=== PATIENT | male | born 1955 | race African-American/Black ===

== ENCOUNTER 2017-12-12 12:49 | Inpatient (IN) | payer MEDICARE, OTHER ==
[2017-12-12 14:12] LABS: BASO # 0.1 x10^3/uL (0.0-0.2); BASO % 0 % (0-3); EOS # 0.3 x10^3/uL (0.0-0.7); EOS % 2 % (0-3); HEMATOCRIT 38.4 % (39.0-53.0); HEMOGLOBIN 12.5 g/dL (13.0-17.5); LYMPH % 10 % (24-48); MEAN CORPUSCULAR HEMOGLOBIN 29 pg (25-35); MEAN CORPUSCULAR HGB CONC 33 g/dL (31-37); MEAN CORPUSCULAR VOLUME 88 fL (79-100); MONO # 1.2 x10^3/uL (0.0-1.1); MONO % 6 % (0-9); NEUT # 16.2 x10^3uL (1.8-7.7); NEUT % 82 % (31-73); PLATELET COUNT 496 x10^3/uL (140-400); RED BLOOD COUNT 4.36 x10^6/uL (4.30-5.70); RED CELL DISTRIBUTION WIDTH 14.5 % (11.5-14.5); WHITE BLOOD COUNT 19.8 x10^3/uL (4.0-11.0)
[2017-12-12 14:14] LABS: ADD MAN DIFF? YES
[2017-12-12 14:24] LABS: ANION GAP 20 (6-14); BLOOD UREA NITROGEN 55 mg/dL (8-26); CALCIUM 9.5 mg/dL (8.5-10.1); CARBON DIOXIDE 21 mmol/L (21-32); CHLORIDE 102 mmol/L (98-107); CREATININE 3.3 mg/dL (0.7-1.3); GFR 23.1; GLUCOSE 116 mg/dL (70-99); POTASSIUM 3.1 mmol/L (3.5-5.1); SODIUM 143 mmol/L (136-145)
[2017-12-12 14:29] LABS: ALBUMIN 3.6 g/dL (3.4-5.0); ALK PHOS 53 U/L (46-116); ALT (SGPT) 23 U/L (16-63); AST (SGOT) 43 U/L (15-37); DIRECT BILIRUBIN 0.1 mg/dL (0.0-0.2); LIPASE 143 U/L (73-393); TOTAL BILIRUBIN 0.7 mg/dL (0.2-1.0); TOTAL PROTEIN 8.8 g/dL (6.4-8.2)
[2017-12-12 14:31] LABS: TROPONINI 0.036 ng/mL (0.000-0.055)
[2017-12-12 14:39] LABS: NT-PRO BNP 1089 pg/mL (0-124)
[2017-12-12 14:58] LABS: LACTIC ACID 1.6 mmol/L (0.4-2.0)
[2017-12-12 16:00] LABS: % ATYL 1 % (0-0); % BANDS 5 % (0-9); % LYMPHS 14 % (24-48); % MONOS 9 % (0-10); % SEGS 71 % (35-66); PLT ESTIMATE INCREASED (ADEQUATE)
[2017-12-12 16:01] LABS: POIKILOCYTOSIS SLIGHT
[2017-12-12 16:30] LABS: BILIRUBIN,URINE SMALL (NEG); CLARITY,URINE CLEAR; COLOR,URINE AMBER; GLUCOSE,URINE NEGATIVE (NEG); NITRITE,URINE NEGATIVE (NEG); PH,URINE 5.5; PROTEIN,URINE 100 mg/dL (NEG-TRACE); UROBILINOGEN,URINE 0.2 mg/dL (0.2 mg/dL)
[2017-12-12 16:44] LABS: BACTERIA,URINE MANY /HPF (0-FEW); HYALINE CASTS, URINE MANY /HPF; WBC,URINE 20-40 /HPF (0-4)
[2017-12-12] MEDS: PIPERACILLIN/TAZOBACTAM 3.375 GM in IV NORMAL SALINE 50ML 50 ML IV (17:37)
[2017-12-12] MEDS: IV NORMAL SALINE 500ML BAG 500 ML IV (19:14)
[2017-12-12] MEDS: IV NORMAL SALINE 1000ML BAG 1,000 ML IV (21:15)
[2017-12-13] MEDS: IV NORMAL SALINE 1000ML BAG 1,000 ML IV ×2 (02:59→10:04)
[2017-12-13] MEDS: MORPHINE SULFATE 4 MG/ML DISP.SYRIN. IV ×2 (03:00→06:51)
[2017-12-13 06:22] LABS: ADD MAN DIFF? NO
[2017-12-13 06:30] LABS: BASO % 0 % (0-3); EOS # 0.3 x10^3/uL (0.0-0.7); EOS % 2 % (0-3); HEMATOCRIT 37.8 % (39.0-53.0); HEMOGLOBIN 12.3 g/dL (13.0-17.5); LYMPH # 1.8 x10^3/uL (1.0-4.8); LYMPH % 13 % (24-48); MEAN CORPUSCULAR HEMOGLOBIN 29 pg (25-35); MEAN CORPUSCULAR HGB CONC 33 g/dL (31-37); MEAN CORPUSCULAR VOLUME 89 fL (79-100); MONO # 0.9 x10^3/uL (0.0-1.1); MONO % 7 % (0-9); NEUT # 10.2 x10^3uL (1.8-7.7); NEUT % 78 % (31-73); PLATELET COUNT 355 x10^3/uL (140-400); RED BLOOD COUNT 4.26 x10^6/uL (4.30-5.70); RED CELL DISTRIBUTION WIDTH 14.3 % (11.5-14.5); WHITE BLOOD COUNT 13.2 x10^3/uL (4.0-11.0)
[2017-12-13 06:47] LABS: ANION GAP 13 (6-14); BLOOD UREA NITROGEN 44 mg/dL (8-26); CARBON DIOXIDE 22 mmol/L (21-32); CHLORIDE 103 mmol/L (98-107); CREATININE 1.3 mg/dL (0.7-1.3); GFR 67.7; GLUCOSE 111 mg/dL (70-99); POTASSIUM 3.2 mmol/L (3.5-5.1); SODIUM 138 mmol/L (136-145)
[2017-12-13] MEDS: ONDANSETRON PF 4 MG/2 ML VIAL. IV (06:50)
[2017-12-13] MEDS: PIPERACILLIN/TAZOBACTAM 3.375 GM in IV NORMAL SALINE 50ML 50 ML IV ×2 (09:56→18:38)
[2017-12-13] MEDS: CLOPIDOGREL BISULFATE 75 MG TABLET PO (09:56)
[2017-12-13] MEDS: FERROUS SULFATE 325 MG TABLET. PO ×2 (09:56→16:52)
[2017-12-13] MEDS: SERTRALINE 50 MG TABLET. PO (09:56)
[2017-12-13] MEDS: BICALUTAMIDE 50 MG TABLET PO (10:03)
[2017-12-13] MEDS: HYDROcodone/APAP 7.5/325MG 1 TAB TABLET PO ×3 (10:08→21:27)
[2017-12-13] MEDS: PANTOPRAZOLE 40 MG TABLET.DR. PO (12:24)
[2017-12-13] MEDS: SUCRALFATE 1 GM/10 ML ORAL.SUSP. PEG ×3 (12:24→21:23)
[2017-12-13 14:14] LABS: MAGNESIUM 2.9 mg/dL (1.8-2.4)
[2017-12-13] MEDS: POTASSIUM CHLORIDE 40 MEQ in IV NORMAL SALINE 1000ML BAG 1,000 ML IV (15:26)
[2017-12-14] MEDS: PIPERACILLIN/TAZOBACTAM 3.375 GM in IV NORMAL SALINE 50ML 50 ML IV ×5 (00:18→23:46)
[2017-12-14 05:17] LABS: ADD MAN DIFF? NO
[2017-12-14 05:24] LABS: BASO # 0.1 x10^3/uL (0.0-0.2); BASO % 1 % (0-3); EOS # 0.3 x10^3/uL (0.0-0.7); EOS % 5 % (0-3); HEMATOCRIT 30.3 % (39.0-53.0); HEMOGLOBIN 9.9 g/dL (13.0-17.5); LYMPH # 1.3 x10^3/uL (1.0-4.8); LYMPH % 17 % (24-48); MEAN CORPUSCULAR HEMOGLOBIN 29 pg (25-35); MEAN CORPUSCULAR HGB CONC 33 g/dL (31-37); MEAN CORPUSCULAR VOLUME 89 fL (79-100); MONO # 0.6 x10^3/uL (0.0-1.1); MONO % 9 % (0-9); NEUT # 5.2 x10^3uL (1.8-7.7); NEUT % 69 % (31-73); PLATELET COUNT 305 x10^3/uL (140-400); RED BLOOD COUNT 3.42 x10^6/uL (4.30-5.70); RED CELL DISTRIBUTION WIDTH 14.2 % (11.5-14.5); WHITE BLOOD COUNT 7.6 x10^3/uL (4.0-11.0)
[2017-12-14] MEDS: HYDROcodone/APAP 7.5/325MG 1 TAB TABLET PO ×4 (05:25→20:54)
[2017-12-14] MEDS: POTASSIUM CHLORIDE 40 MEQ in IV NORMAL SALINE 1000ML BAG 1,000 ML IV (05:27)
[2017-12-14 05:50] LABS: MAGNESIUM 2.1 mg/dL (1.8-2.4)
[2017-12-14 05:52] LABS: ANION GAP 9 (6-14); CALCIUM 8.4 mg/dL (8.5-10.1); CARBON DIOXIDE 24 mmol/L (21-32); CHLORIDE 107 mmol/L (98-107); CREATININE 0.7 mg/dL (0.7-1.3); GFR 138.3; GLUCOSE 99 mg/dL (70-99); POTASSIUM 3.1 mmol/L (3.5-5.1); SODIUM 140 mmol/L (136-145)
[2017-12-14 05:55] LABS: BLOOD UREA NITROGEN 29 mg/dL (8-26)
[2017-12-14] MEDS: SUCRALFATE 1 GM/10 ML ORAL.SUSP. PEG ×4 (09:28→20:53)
[2017-12-14] MEDS: PANTOPRAZOLE 40 MG TABLET.DR. PO (09:28)
[2017-12-14] MEDS: CLOPIDOGREL BISULFATE 75 MG TABLET PO (09:29)
[2017-12-14] MEDS: FERROUS SULFATE 325 MG TABLET. PO ×2 (09:29→17:27)
[2017-12-14] MEDS: POTASSIUM CHLORIDE 10 MEQ TABLET.ER. PO ×3 (09:29→17:27)
[2017-12-14] MEDS: SERTRALINE 50 MG TABLET. PO (09:30)
[2017-12-14] MEDS: BICALUTAMIDE 50 MG TABLET PO (09:36)
[2017-12-14] MEDS: POTASSIUM CL 30MEQ D5-0.45NACL 1,000 ML IV ×2 (11:18→23:45)
[2017-12-15] MEDS: PIPERACILLIN/TAZOBACTAM 3.375 GM in IV NORMAL SALINE 50ML 50 ML IV (04:55)
[2017-12-15 05:31] LABS: MAGNESIUM 1.7 mg/dL (1.8-2.4)
[2017-12-15 05:35] LABS: ANION GAP 10 (6-14); BLOOD UREA NITROGEN 6 mg/dL (8-26); CALCIUM 8.4 mg/dL (8.5-10.1); CARBON DIOXIDE 24 mmol/L (21-32); CHLORIDE 103 mmol/L (98-107); CREATININE 0.6 mg/dL (0.7-1.3); GFR 165.2; GLUCOSE 114 mg/dL (70-99); SODIUM 137 mmol/L (136-145)
[2017-12-15] MEDS: SUCRALFATE 1 GM/10 ML ORAL.SUSP. PEG ×4 (09:56→20:48)
[2017-12-15] MEDS: HYDROcodone/APAP 7.5/325MG 1 TAB TABLET PO ×3 (09:56→20:48)
[2017-12-15] MEDS: FERROUS SULFATE 325 MG TABLET. PO ×2 (09:57→17:31)
[2017-12-15] MEDS: CLOPIDOGREL BISULFATE 75 MG TABLET PO (09:57)
[2017-12-15] MEDS: PANTOPRAZOLE 40 MG TABLET.DR. PO (09:57)
[2017-12-15] MEDS: SERTRALINE 50 MG TABLET. PO (09:57)
[2017-12-15] MEDS: POTASSIUM CHLORIDE 10 MEQ TABLET.ER. PO ×3 (09:57→17:31)
[2017-12-15] MEDS: BICALUTAMIDE 50 MG TABLET PO (10:07)
[2017-12-15] MEDS: amLODIPine BESYLATE 5 MG TABLET PO (10:37)
[2017-12-15] MEDS: POTASSIUM CL 30MEQ D5-0.45NACL 1,000 ML IV (13:33)
[2017-12-15] MEDS ORDERED: PIPERACILLIN/TAZOBACTAM 3.375 GM in IV NORMAL SALINE 100ML 100 ML IV (18:00)
[2017-12-15] MEDS: AMOXICILLIN/K CLAV 500/125MG TABLET. PO (20:48)
[2017-12-16] MEDS: POTASSIUM CL 30MEQ D5-0.45NACL 1,000 ML IV ×2 (05:32→17:45)
[2017-12-16 06:22] LABS: MAGNESIUM 1.6 mg/dL (1.8-2.4)
[2017-12-16] MEDS ORDERED: LIDOCAINE 1% PF 2 ML VIAL. ID ×2 (08:00→08:15)
[2017-12-16] MEDS ORDERED: fentaNYL PF VIAL 100 MCG/2 ML VIAL IV ×4 (08:00→08:15)
[2017-12-16] MEDS ORDERED: MIDAZOLAM HCL/PF 2 MG/2 ML VIAL. IV ×2 (08:00→08:15)
[2017-12-16] MEDS: IV RINGERS,LACTATED 1000ML 1,000 ML IV ×3 (08:11→16:11)
[2017-12-16] MEDS: BICALUTAMIDE 50 MG TABLET PO (09:00)
[2017-12-16] MEDS: CLOPIDOGREL BISULFATE 75 MG TABLET PO (09:00)
[2017-12-16] MEDS ORDERED: PROPOFOL 20 ML IV (09:14)
[2017-12-16] MEDS: HYDROcodone/APAP 7.5/325MG 1 TAB TABLET PO ×3 (09:44→20:50)
[2017-12-16] MEDS: AMOXICILLIN/K CLAV 500/125MG TABLET. PO ×2 (09:44→20:50)
[2017-12-16] MEDS: SUCRALFATE 1 GM/10 ML ORAL.SUSP. PEG ×4 (09:44→20:50)
[2017-12-16] MEDS: amLODIPine BESYLATE 5 MG TABLET PO ×2 (09:45→10:10)
[2017-12-16] MEDS: PANTOPRAZOLE 40 MG TABLET.DR. PO (09:45)
[2017-12-16] MEDS: POTASSIUM CHLORIDE 10 MEQ TABLET.ER. PO ×3 (09:45→16:23)
[2017-12-16] MEDS: SERTRALINE 50 MG TABLET. PO ×2 (09:45→10:06)
[2017-12-16] MEDS: FERROUS SULFATE 325 MG TABLET. PO ×2 (10:09→16:23)
[2017-12-16] MEDS: POTASSIUM CHLORIDE 20 MEQ TABLET.ER. PO (11:00)
[2017-12-16] MEDS: MAGNESIUM SULFATE 2GM 50 ML IV (19:44)
[2017-12-17] MEDS: POTASSIUM CL 30MEQ D5-0.45NACL 1,000 ML IV ×2 (03:40→10:17)
[2017-12-17 05:41] LABS: ANION GAP 13 (6-14); BLOOD UREA NITROGEN 7 mg/dL (8-26); CALCIUM 9.1 mg/dL (8.5-10.1); CARBON DIOXIDE 25 mmol/L (21-32); CHLORIDE 99 mmol/L (98-107); CREATININE 0.8 mg/dL (0.7-1.3); GFR 118.5; GLUCOSE 151 mg/dL (70-99); MAGNESIUM 1.9 mg/dL (1.8-2.4); POTASSIUM 3.5 mmol/L (3.5-5.1); SODIUM 137 mmol/L (136-145)
[2017-12-17] MEDS: SUCRALFATE 1 GM/10 ML ORAL.SUSP. PEG ×4 (08:03→20:22)
[2017-12-17] MEDS: PANTOPRAZOLE 40 MG TABLET.DR. PO (08:04)
[2017-12-17] MEDS: FERROUS SULFATE 325 MG TABLET. PO ×2 (09:19→16:36)
[2017-12-17] MEDS: HYDROcodone/APAP 7.5/325MG 1 TAB TABLET PO ×2 (09:19→16:39)
[2017-12-17] MEDS: POTASSIUM CHLORIDE 20 MEQ TABLET.ER. PO (09:19)
[2017-12-17] MEDS: CLOPIDOGREL BISULFATE 75 MG TABLET PO (09:19)
[2017-12-17] MEDS: AMOXICILLIN/K CLAV 500/125MG TABLET. PO ×2 (09:19→20:22)
[2017-12-17] MEDS: amLODIPine BESYLATE 5 MG TABLET PO ×2 (09:20→10:50)
[2017-12-17] MEDS: POTASSIUM CHLORIDE 10 MEQ TABLET.ER. PO ×3 (09:20→16:39)
[2017-12-17] MEDS: BICALUTAMIDE 50 MG TABLET PO (09:27)
[2017-12-17] MEDS ORDERED: POLYETHYLENE GLYCOL 3350 17 GM PACKET. PO (12:15)
[2017-12-18] MEDS: POTASSIUM CL 30MEQ D5-0.45NACL 1,000 ML IV (00:32)
[2017-12-18 06:47] LABS: MAGNESIUM 1.6 mg/dL (1.8-2.4)
[2017-12-18] MEDS: FERROUS SULFATE 325 MG TABLET. PO (07:36)
[2017-12-18] MEDS: PANTOPRAZOLE 40 MG TABLET.DR. PO (07:36)
[2017-12-18] MEDS: SUCRALFATE 1 GM/10 ML ORAL.SUSP. PEG ×2 (07:36→12:10)
[2017-12-18] MEDS: POTASSIUM CHLORIDE 20 MEQ TABLET.ER. PO (07:36)
[2017-12-18] MEDS: HYDROcodone/APAP 7.5/325MG 1 TAB TABLET PO ×2 (07:37→12:11)
[2017-12-18] MEDS: AMOXICILLIN/K CLAV 500/125MG TABLET. PO (07:48)
[2017-12-18] MEDS: CLOPIDOGREL BISULFATE 75 MG TABLET PO (07:48)
[2017-12-18] MEDS: amLODIPine BESYLATE 5 MG TABLET PO ×2 (07:48→08:54)
[2017-12-18] MEDS: SERTRALINE 50 MG TABLET. PO (07:48)
[2017-12-18] MEDS: BICALUTAMIDE 50 MG TABLET PO (07:54)
[2017-12-18] MEDS: POTASSIUM CHLORIDE 10 MEQ TABLET.ER. PO ×2 (08:42→13:31)
== END 2017-12-18 15:29 | disposition home health service (06) | DRG 871 ==
LOC: ER 12:49 → 5 SOUTH 12-16 19:45
PROC: 0DB58ZX Excision of Esophagus, Via Natural or Artificial Opening Endoscopic, Diagnostic (ICD-10-PCS; principal; 2017-12-16 08:30)
PROC: 0DB68ZX Excision of Stomach, Via Natural or Artificial Opening Endoscopic, Diagnostic (ICD-10-PCS; 2017-12-16 08:30)
DX: A41.9 Sepsis, unspecified organism (principal); N17.1 Acute kidney failure with acute cortical necrosis; N39.0 Urinary tract infection, site not specified; I69.354 Hemiplegia and hemiparesis following cerebral infarction affecting left non-dominant side; G62.9 Polyneuropathy, unspecified; E78.5 Hyperlipidemia, unspecified; F17.200 Nicotine dependence, unspecified, uncomplicated; I10 Essential (primary) hypertension; K20.9 Esophagitis, unspecified; K27.9 Peptic ulcer, site unspecified, unspecified as acute or chronic, without hemorrhage or perforation; K29.60 Other gastritis without bleeding; K59.00 Constipation, unspecified; K64.8 Other hemorrhoids; F32.9 Major depressive disorder, single episode, unspecified; B96.1 Klebsiella pneumoniae [K. pneumoniae] as the cause of diseases classified elsewhere; K82.8 Other specified diseases of gallbladder; Z85.46 Personal history of malignant neoplasm of prostate; Z87.11 Personal history of peptic ulcer disease; Z92.3 Personal history of irradiation
CPT/HCPCS: 36415; 74176; 76705; 80048; 80076; 81001; 83605; 83690; 83735; 83880; 84484; 85007; 85025; 87086; 87186; 88305; 88312; 88342; 93005; 96365; 96366; 97162-GP; 97167-GO; 99285; 99285-25; J2270; J2405; J2543; J2704; J3475; J7030; J7040; J7120

== ENCOUNTER 2018-07-12 10:24 | Emergency (ER) | payer MEDICARE, OTHER ==
[~2018-07-12] VITALS: Ht 193 cm; Wt 88.5 kg
[~2018-07-12 10:24] MED LIST: BICA50TA47 PO; CLOP75TA57 PO; FERR325T14 PO; HYDR-2762 PO; PANT20TA2 PO; SERT50TA PO; SIMV20TA3 PO; SUCR1ORA5 PO
[2018-07-12] MEDS: HYDROcodone/APAP 5/325MG 1 TAB TABLET PO ONE (11:07)
[2018-07-12] MEDS: ONDANSETRON ODT 4 MG TAB.RAPDIS. PO ONE (11:07)
--- NOTE | 2018-07-12 12:04 | RAD ---
EXAM: 1. Frontal chest with 4 view left rib series. 2. Frontal pelvis with two-view left hip. HISTORY: Fall with left chest and hip pain. COMPARISON: June 28, 2010. FINDINGS: There are minimally displaced fractures of the left third through eighth ribs. There is a small left pleural effusion. There is no pneumothorax. Atelectasis is noted in both bases. There is mild elevation of the right hemidiaphragm. There are atherosclerotic calcifications of the aorta. Images of the pelvis reveal moderate to severe osteopenia. This limits evaluation for nondisplaced fractures, but none are seen. A left hip hemiarthroplasty is in expected alignment. Fiducial markers are suspected within the prostate gland. Atherosclerotic calcifications are noted. IMPRESSION: 1. Minimally displaced fractures of the left third through eighth ribs. 2. Small left pleural effusion. No pneumothorax. Bibasilar atelectasis. 3. Moderate to severe osteopenia. No pelvic or left hip fracture. Left hip hemiarthroplasty in expected alignment. Electronically signed by: Erik Syed MD (07/12/2018 12:01 PM) [facility]
[2018-07-12 12:56] LABS: BASO # 0.1 x10^3/uL (0.0-0.2); BASO % 0 % (0-3); EOS # 0.2 x10^3/uL (0.0-0.7); EOS % 1 % (0-3); HEMATOCRIT 33.6 % (39.0-53.0); HEMOGLOBIN 11.5 g/dL (13.0-17.5); LYMPH # 2.2 x10^3/uL (1.0-4.8); LYMPH % 14 % (24-48); MEAN CORPUSCULAR HEMOGLOBIN 31 pg (25-35); MEAN CORPUSCULAR HGB CONC 34 g/dL (31-37); MEAN CORPUSCULAR VOLUME 90 fL (79-100); MONO % 6 % (0-9); NEUT # 12.9 x10^3uL (1.8-7.7); NEUT % 79 % (31-73); PLATELET COUNT 443 x10^3/uL (140-400); RED BLOOD COUNT 3.73 x10^6/uL (4.30-5.70); RED CELL DISTRIBUTION WIDTH 14.8 % (11.5-14.5); WHITE BLOOD COUNT 16.3 x10^3/uL (4.0-11.0)
[2018-07-12 12:59] LABS: CREATININE ISTAT 0.8 mg/dL (0.5-1.4); HEMOGLOBIN ISTAT 12.2 g/dL (14-18); ION CA ISTAT 1.07 mmol/L (1.13-1.32); POTASSIUM ISTAT 3.1 mmol/L (3.5-5.0)
[2018-07-12 13:06] LABS: CALCIUM 9.3 mg/dL (8.5-10.1); CREATININE 0.9 mg/dL (0.7-1.3); GFR 103.1; POTASSIUM 3.2 mmol/L (3.5-5.1)
[2018-07-12 13:15] LABS: % EOS 2 % (0-5); % LYMPHS 16 % (24-48); % MONOS 3 % (0-10); % SEGS 79 % (35-66)
[2018-07-12 13:16] LABS: PLT ESTIMATE INCREASED (ADEQUATE)
[2018-07-12] MEDS ORDERED: IOHEXOL 300 MG/ML 100ML VIAL. IV ONE (13:30)
[2018-07-12] MEDS ORDERED: CONTRAST GIVEN. MC PRN (13:30)
--- NOTE | 2018-07-12 14:24 | PHYS DOC ---
Past Medical History Past Medical History: CVA, Other Additional Past Medical Histor: Left hemiparalysis Past Surgical History: Other Additional Past Surgical Histo: back, unknown Alcohol Use: None Drug Use: None Adult General Chief Complaint Chief Complaint: RIB PAIN HPI HPI Patient is a 63 year old male with history of CVA with left-sided weakness who presents today complaining of moderate left rib pain and left hip pain status post falling a week ago. Patient states his pain is worse on certain movements. PCP Dr. Tabor Review of Systems Review of Systems Constitutional: Denies fever or chills [] Eyes: Denies change in visual acuity, redness, or eye pain [] HENT: Denies nasal congestion or sore throat [] Respiratory: Reports left rib pain. Denies cough or shortness of breath [] Cardiovascular: No additional information not addressed in HPI [] GI: Denies abdominal pain, nausea, vomiting, bloody stools or diarrhea [] : Denies dysuria or hematuria [] Musculoskeletal: Reports left thigh pain. Denies any back pain or neck pain. Integument: Denies rash or skin lesions [] Neurologic: Denies headache, focal weakness or sensory changes [] All other systems were reviewed and found to be within normal limits, except as documented in this note. Current Medications Current Medications Current Medications Medications (Trade) Dose Ordered Sig/Popeye Start Time Stop Time Status Last Admin Dose Admin Acetaminophen/ Hydrocodone Bitart (Lortab 5/325) 1 tab 1X ONCE 07/12/18 11:00 07/12/18 11:01 DC 07/12/18 11:07 1 TAB Info (CONTRAST GIVEN -- Rx MONITORING) 1 each PRN DAILY PRN 07/12/18 13:30 07/14/18 13:29 Iohexol (Omnipaque 300 Mg/ml) 75 ml 1X ONCE 07/12/18 13:30 07/12/18 13:31 DC Ondansetron HCl (Zofran Odt) 4 mg 1X ONCE 07/12/18 11:00 07/12/18 11:01 DC 07/12/18 11:07 4 MG Allergies Allergies Allergies Coded Allergies Type Severity Reaction Last Updated Verified No Known Drug Allergies 12/16/17 No Physical Exam Physical Exam Constitutional: Well developed, well nourished, no acute distress, non-toxic appearance. [] HENT: Normocephalic, atraumatic, bilateral external ears normal, oropharynx moist, no oral exudates, nose normal. [] Eyes: PERRLA, EOMI, conjunctiva normal, no discharge. [] Neck: Normal range of motion, no tenderness, supple, no stridor. [] Cardiovascular:Heart rate regular rhythm, no murmur [] Lungs & Thorax: Tenderness on palpation of almost all the left lateral ribs mid clavicular and mid axillary line. Diminished breath sounds to posterior lung bases. Abdomen: Bowel sounds normal, soft, no tenderness, no masses, no pulsatile masses. [] Skin: Warm, dry, no erythema, no rash. [] Back: No tenderness, no CVA tenderness. [] Extremities: Left upper extremity is contracted. Left lower extremity is weak from a CVA. Slight tenderness on palpation of the left anterior hip. Left hip lower extremity with limited range of motion due to CVA. +2 bilateral pedal pulses. Neurologic: Alert and oriented X 3, normal motor function, normal sensory function, no focal deficits noted. [] Psychologic: Affect normal, judgement normal, mood normal. [] Current Patient Data Vital Signs Vital Signs Date Time Temp Pulse Resp B/P (MAP) Pulse Ox O2 Delivery O2 Flow Rate FiO2 07/12/18 14:41 76 18 142/72 (95) 96 Room Air 07/12/18 10:40 98.3 98.3 Lab Values Laboratory Tests Test 07/12/18 12:50 07/12/18 12:52 White Blood Count 16.3 x10^3/uL (4.0-11.0) H Red Blood Count 3.73 x10^6/uL (4.30-5.70) L Hemoglobin 11.5 g/dL (13.0-17.5) L Hematocrit 33.6 % (39.0-53.0) L Mean Corpuscular Volume 90 fL (79-100) Mean Corpuscular Hemoglobin 31 pg (25-35) Mean Corpuscular Hemoglobin Concent 34 g/dL (31-37) Red Cell Distribution Width 14.8 % (11.5-14.5) H Platelet Count 443 x10^3/uL (140-400) H Neutrophils (%) (Auto) 79 % (31-73) H Lymphocytes (%) (Auto) 14 % (24-48) L Monocytes (%) (Auto) 6 % (0-9) Eosinophils (%) (Auto) 1 % (0-3) Basophils (%) (Auto) 0 % (0-3) Neutrophils # (Auto) 12.9 x10^3uL (1.8-7.7) H Lymphocytes # (Auto) 2.2 x10^3/uL (1.0-4.8) Monocytes # (Auto) 1.0 x10^3/uL (0.0-1.1) Eosinophils # (Auto) 0.2 x10^3/uL (0.0-0.7) Basophils # (Auto) 0.1 x10^3/uL (0.0-0.2) Segmented Neutrophils % 79 % (35-66) H Lymphocytes % 16 % (24-48) L Monocytes % 3 % (0-10) Eosinophils % 2 % (0-5) Platelet Estimate Increased (ADEQUATE) Sodium Level 138 mmol/L (136-145) Potassium Level 3.2 mmol/L (3.5-5.1) L Chloride Level 103 mmol/L (98-107) Carbon Dioxide Level 24 mmol/L (21-32) Anion Gap 11 (6-14) 15 mmol/L (6-14) H Blood Urea Nitrogen 17 mg/dL (8-26) Creatinine 0.9 mg/dL (0.7-1.3) Estimated GFR (Cockcroft-Gault) 103.1 Glucose Level 84 mg/dL (70-99) 80 mg/dL (70-99) Calcium Level 9.3 mg/dL (8.5-10.1) POC Hemoglobin 12.2 g/dL (14-18) L POC Hematocrit 36 % (37-52) L POC Sodium 139 mmol/L (135-145) POC Potassium 3.1 mmol/L (3.5-5.0) L POC Chloride 105 mmol/L (98-110) POC Total CO2 23 mmol/L (23-32) POC Blood Urea Nitrogen 16 mg/dL (8-26) POC Creatinine 0.8 mg/dL (0.5-1.4) POC Ionized Calcium (Malia) 1.07 mmol/L (1.13-1.32) L Laboratory Tests 07/12/18 12:50 Laboratory Tests 07/12/18 12:50 07/12/18 12:52 EKG EKG [] Radiology/Procedures Radiology/Procedures []PROCEDURE: RIBS LEFT AND PA CHEST EXAM: 1. Frontal chest with 4 view left rib series. 2. Frontal pelvis with two-view left hip. HISTORY: Fall with left chest and hip pain. COMPARISON: June 28, 2010. FINDINGS: There are minimally displaced fractures of the left third through eighth ribs. There is a small left pleural effusion. There is no pneumothorax. Atelectasis is noted in both bases. There is mild elevation of the right hemidiaphragm. There are atherosclerotic calcifications of the aorta. Images of the pelvis reveal moderate to severe osteopenia. This limits evaluation for nondisplaced fractures, but none are seen. A left hip hemiarthroplasty is in expected alignment. Fiducial markers are suspected within the prostate gland. Atherosclerotic calcifications are noted. IMPRESSION: 1. Minimally displaced fractures of the left third through eighth ribs. 2. Small left pleural effusion. No pneumothorax. Bibasilar atelectasis. 3. Moderate to severe osteopenia. No pelvic or left hip fracture. Left hip hemiarthroplasty in expected alignment. Electronically signed by: Erik Syed MD (07/12/2018 12:01 PM) [facility] DICTATED and SIGNED BY: GARRISON SYED MD DATE: 07/12/18 1157 PROCEDURE: CT ANGIOGRAPHY CHEST EXAM: CT ANGIOGRAPHY OF THE CHEST WITH AND WITHOUT INTRAVENOUS CONTRAST. HISTORY: Shortness of breath, chest pain. TECHNIQUE: Computed tomographic angiography of the chest was performed before and after the intravenous administration of 75 mL Omnipaque 300. 3-D maximum intensity projections were also performed. COMPARISON: 07/23/2016. FINDINGS: Images of the upper abdomen reveal mild gallbladder wall thickening. A left adrenal nodule measures 2.0 x 1.4 cm and appears to have been present chronically. A benign adenoma is favored. Bone windows reveal fractures of the third through 12th ribs. They are segmental along the third through eighth ribs. No pulmonary emboli are identified. There is no aortic dissection or aneurysm. Soft tissue density within the anterior mediastinal fat is relatively focal and measures 1.2 x 1.0 cm transaxially. It is stable chronically. There are no pathologically enlarged mediastinal or axillary lymph nodes. Calcified mediastinal lymph nodes are likely secondary to old granulomatous disease. There is a small left pleural effusion. There is no pericardial effusion. The heart is not enlarged. There are atherosclerotic calcifications of the coronary arteries. The lower lobe bronchi are filled with debris. Infiltrates in the bases are consistent with a combination of atelectasis and pneumonitis. There is mild to moderate centrilobular emphysema. IMPRESSION: 1. No pulmonary embolism. 2. The lower lobe bronchi are filled with debris. Correlate for aspiration versus uncleared secretions. There is associated bibasilar pneumonitis 3. Left third through 12th rib fractures, some of which are displaced or segmental. No pneumothorax. Small left pleural effusion. 4. Mild gallbladder wall thickening is nonspecific and may reflect systemic edema or liver disease. Correlate clinically to exclude cholecystitis. 5. A 2 cm left adrenal nodule appears stable and most likely indicates a benign adenoma. 6. A 1.2 cm nodule within the anterior mediastinum appears stable. Follow-up is suggested in one year to exclude a thymic lesion. *One or more of the following individualized dose reduction techniques were utilized for this examination: 1. Automated exposure control. 2. Adjustment of the mA and/or kV according to patient size. 3. Use of iterative reconstruction technique. Electronically signed by: Erik Syed MD (07/12/2018 2:46 PM) [facility] DICTATED and SIGNED BY: GARRISON SYED MD DATE: 07/12/18 143 Course & Med Decision Making Course & Med Decision Making Pertinent Labs and Imaging studies reviewed. (See chart for details) This is a 63-year-old male patient with history of CVA and left-sided weakness who presents today status post falling a week ago. Complaining of left rib pain and left thigh pain. X-rays of the left ribs/chest PA-Minimally displaced fractures of the left third through eighth ribs. He Small left pleural effusion. No pneumothorax. Bibasilar atelectasis. Moderate to severe osteopenia. No pelvic or left hip fracture. Left hip hemiarthroplasty in expected alignment. WBC 16.3, CMP potassium of 3.2, patient was given oral potassium replacement. CTA chest ordered. Results 1. No pulmonary embolism. 2. The lower lobe bronchi are filled with debris. Correlate for aspiration versus uncleared secretions. There is associated bibasilar pneumonitis 3. Left third through 12th rib fractures, some of which are displaced or segmental. No pneumothorax. Small left pleural effusion. 4. Mild gallbladder wall thickening is nonspecific and may reflect systemic edema or liver disease. Correlate clinically to exclude cholecystitis. 5. A 2 cm left adrenal nodule appears stable and most likely indicates a benign adenoma. 6. A 1.2 cm nodule within the anterior mediastinum appears stable. Follow-up is suggested in one year to exclude a thymic lesion. -Offered patient admission, he declined, he states he left his house unattended at the dose open and he does not want to be in the hospital on time around and find everything in his house was stolen. He'll sign out AMA but I offered him a prescription for Levaquin, cyclobenzaprine and hydrocodone as needed for pain. I recommended he follows up with his own PCP on Saturday and return to the ED at any point symptoms worsen. Dragon Disclaimer Dragon Disclaimer This electronic medical record was generated, in whole or in part, using a voice recognition dictation system. Departure Departure Impression: Primary Impression: Fall from standing Additional Impressions: Rib fractures Aspiration pneumonia Disposition: HOME, SELF-CARE Condition: STABLE Referrals: UCHE TABOR MD (PCP) follow up on Saturday Patient Instructions: Aspiration Pneumonia, Fall Prevention and Home Safety, Rib Fracture, [id number] Additional Instructions: You were evaluated in the emergency room and noted to have rib 3 through 8 fractures. You also have pneumonia going on. We put you on antibiotics. Ensure you complete them. Please follow-up with your own doctor on Saturday next week. Come back to the ED at any point symptoms worsen. Scripts Levofloxacin (LEVAQUIN) 750 Mg Tablet 1 TAB PO DAILY, #6 TAB Prov: [employer] 07/12/18 Hydrocodone/Apap 5-325 (NORCO 5-325 TABLET) 1 Each Tablet 1 TAB PO Q6HRS PRN for PAIN, #20 TAB Prov: MUTUNGAORION [employer] 18 Cyclobenzaprine Hcl (CYCLOBENZAPRINE HCL) 10 Mg Tablet 1 TAB PO TID, #30 TAB Prov: [employer]ION [employer] 18 Problem Qualifiers Primary Impression: Fall from standing Encounter type: initial encounter Qualified Codes: W19.XXXA - Unspecified fall, initial encounter Additional Impressions: Rib fractures Encounter type: initial encounter Rib fracture type: multiple ribs Fracture type: closed Laterality: left Qualified Codes: S22.42XA - Multiple fractures of ribs, left side, initial encounter for closed fracture Aspiration pneumonia Aspiration pneumonia type: unspecified Laterality: left Lung location: lower lobe of lung Qualified Codes: J69.0 - Pneumonitis due to inhalation of food and vomit [employer] Jul 12, 2018 14:24
[2018-07-12 14:41] VITALS: BP 142/72
--- NOTE | 2018-07-12 14:49 | RAD ---
EXAM: CT ANGIOGRAPHY OF THE CHEST WITH AND WITHOUT INTRAVENOUS CONTRAST. HISTORY: Shortness of breath, chest pain. TECHNIQUE: Computed tomographic angiography of the chest was performed before and after the intravenous administration of 75 mL Omnipaque 300. 3-D maximum intensity projections were also performed. COMPARISON: 07/23/2016. FINDINGS: Images of the upper abdomen reveal mild gallbladder wall thickening. A left adrenal nodule measures 2.0 x 1.4 cm and appears to have been present chronically. A benign adenoma is favored. Bone windows reveal fractures of the third through 12th ribs. They are segmental along the third through eighth ribs. No pulmonary emboli are identified. There is no aortic dissection or aneurysm. Soft tissue density within the anterior mediastinal fat is relatively focal and measures 1.2 x 1.0 cm transaxially. It is stable chronically. There are no pathologically enlarged mediastinal or axillary lymph nodes. Calcified mediastinal lymph nodes are likely secondary to old granulomatous disease. There is a small left pleural effusion. There is no pericardial effusion. The heart is not enlarged. There are atherosclerotic calcifications of the coronary arteries. The lower lobe bronchi are filled with debris. Infiltrates in the bases are consistent with a combination of atelectasis and pneumonitis. There is mild to moderate centrilobular emphysema. IMPRESSION: 1. No pulmonary embolism. 2. The lower lobe bronchi are filled with debris. Correlate for aspiration versus uncleared secretions. There is associated bibasilar pneumonitis 3. Left third through 12th rib fractures, some of which are displaced or segmental. No pneumothorax. Small left pleural effusion. 4. Mild gallbladder wall thickening is nonspecific and may reflect systemic edema or liver disease. Correlate clinically to exclude cholecystitis. 5. A 2 cm left adrenal nodule appears stable and most likely indicates a benign adenoma. 6. A 1.2 cm nodule within the anterior mediastinum appears stable. Follow-up is suggested in one year to exclude a thymic lesion. *One or more of the following individualized dose reduction techniques were utilized for this examination: 1. Automated exposure control. 2. Adjustment of the mA and/or kV according to patient size. 3. Use of iterative reconstruction technique. Electronically signed by: Erik Syed MD (07/12/2018 2:46 PM) [facility]
[2018-07-12] MEDS ORDERED: LEVO750T31 PO (15:10)
[2018-07-12] MEDS ORDERED: HYDR-971 PO (15:10)
[2018-07-12] MEDS ORDERED: CYCL10TA2 PO (15:10)
[2018-07-12] MEDS: POTASSIUM CHLORIDE 20 MEQ/15 ML ORAL LIQUID. PO ONE (15:17)
== END 2018-07-12 15:38 | disposition home or self-care (01) ==
LOC: ER 10:24
DX: S22.42XA Multiple fractures of ribs, left side, initial encounter for closed fracture (principal); J90 Pleural effusion, not elsewhere classified; J69.0 Pneumonitis due to inhalation of food and vomit; Z86.73 Personal history of transient ischemic attack (TIA), and cerebral infarction without residual deficits; W18.39XA Other fall on same level, initial encounter; Y93.89 Activity, other specified; Y92.89 Other specified places as the place of occurrence of the external cause; Y99.8 Other external cause status
CPT/HCPCS: 36415; 71101; 71275; 73502; 80047; 80048; 85007; 85025; 99285; Q0162

== ENCOUNTER 2018-12-12 15:08 | Inpatient (IN) | payer MEDICARE, OTHER ==
[~2018-12-12] VITALS: Ht 193 cm; Wt 69.7 kg
[~2018-12-12 15:08] MED LIST changes: +CYCL10TA2 PO; -HYDR-2762 PO; +HYDR-2765 PO; +HYDR-3164 PO; +LEVO750T31 PO
[2018-12-12] MEDS ORDERED: IV NORMAL SALINE 1000ML BAG 1,000 ML IV ONE ×2 (15:45→20:00)
--- NOTE | 2018-12-12 16:44 | RAD ---
CT HEAD WO CONTRAST Indication: ams, hx of stroke nx10 years ago, fall last week Exposure: One or more of the following individualized dose reduction techniques were utilized for this examination: 1. Automated exposure control 2. Adjustment of the mA and/or kV according to patient size 3. Use of iterative reconstruction technique. Comparison: None are available. Contrast: None Findings: There is extensive low-density in the right frontal, parietal and temporal lobe, most likely due to old encephalomalacia or old infarction. There is ex vacuo dilatation of the right lateral ventricle. Posterior fossa unremarkable. No acute intracranial hemorrhage, mass effect, midline shift or abnormal extra-axial fluid collection. Mild generalized atrophy. Orbits appear unremarkable. No evidence of large scalp hematoma. Severe opacification of partially included maxillary sinuses. Mild ethmoid and sphenoid sinus mucosal thickening. Severe right frontal sinus mucosal thickening. The mastoids are not well pneumatized. Intracranial arterial calcifications are seen. No evidence of a depressed skull fracture although a site of tenderness or impact is not known. IMPRESSION: 1. Extensive low-density in the right cerebral hemisphere, most compatible with encephalomalacia or chronic infarct. Note that could be difficult to exclude a superimposed component of acute ischemia if that is of concern. 2. No evidence of acute intracranial hemorrhage. 3. Extensive paranasal sinus disease. Electronically signed by: Kip Salazar MD (12/12/2018 4:41 PM) [email or web address]
[2018-12-12 17:08] LABS: FECAL OB PT POSITIVE (NEG)
--- NOTE | 2018-12-12 17:34 | PHYS DOC ---
Past Medical History Past Medical History: CVA, Other Additional Past Medical Histor: Left hemiparalysis (ORION ANGELES APRN) Past Surgical History: Other Additional Past Surgical Histo: back, unknown (ORION ANGELES APRN) Alcohol Use: Occasionally Drug Use: None (ORION ANGELES APRN) Adult General Chief Complaint Chief Complaint: OTHER COMPLAINTS HPI HPI Patient is a 63 year old male with history of CVA with left-sided paralysis who presents to the ED today with multiple complaints. Family state patient has had multiple falls this week. They state patient's abdomen appears bloated. They state patient has been appearing more sleepy than normal recently. Patient himself states she is week. Patient was able to wake up during my conversation with him. Family also states patient complained of left hip pain at home. PCP Dr. Tabor (ORION ANGELES APRN) Review of Systems Review of Systems Constitutional: Denies fever or chills [] Eyes: Denies change in visual acuity, redness, or eye pain [] HENT: Denies nasal congestion or sore throat [] Respiratory: Denies cough or shortness of breath [] Cardiovascular: No additional information not addressed in HPI [] GI: Denies abdominal pain, nausea, vomiting, bloody stools or diarrhea [] : Denies dysuria or hematuria [] Musculoskeletal: Reports frequent falls. Reports left hip pain. Denies back pain Integument: Denies rash or skin lesions [] Neurologic: Reports weakness. Denies headache, focal weakness or sensory changes [] All other systems were reviewed and found to be within normal limits, except as documented in this note. (ORION ANGELES APRN) Current Medications Current Medications Current Medications Medications (Trade) Dose Ordered Sig/[facility] Start Time Stop Time Status Last Admin Dose Admin Calcium Gluconate (Calcium Gluconate) 1,000 mg 1X ONCE 12/12/18 18:30 12/12/18 18:31 UNV Fentanyl Citrate (Fentanyl 2ml Vial) 50 mcg 1X ONCE 12/12/18 18:15 12/12/18 18:16 DC 12/12/18 18:24 50 MCG Magnesium Sulfate 50 ml @ 25 mls/hr 1X ONCE 12/12/18 18:30 12/12/18 20:29 DC Pantoprazole Sodium (PROTONIX VIAL for IV PUSH) 80 mg 1X ONCE 12/12/18 18:30 12/12/18 18:33 DC 12/12/18 21:10 80 MG Pantoprazole Sodium 80 mg/ Sodium Chloride 100 ml @ 10 mls/hr Q10H 12/12/18 18:30 12/12/18 21:08 10 MLS/HR Potassium Chloride/Water 100 ml @ 100 mls/hr Q1H 12/12/18 18:30 12/12/18 22:29 12/12/18 21:08 100 MLS/HR Potassium Chloride (Klor-Con) 40 meq 1X ONCE 12/12/18 18:30 12/12/18 18:36 DC Sodium Chloride 1,000 ml @ 1,000 mls/hr 1X ONCE 12/12/18 15:45 12/12/18 16:44 DC 12/12/18 17:18 1,000 MLS/HR (MARISOL DOMINIQUE MD) Allergies Allergies Allergies Coded Allergies Type Severity Reaction Last Updated Verified No Known Drug Allergies 12/16/17 No (MARISOL DOMINIQUE MD) Physical Exam Physical Exam Constitutional: Well developed, well nourished, no acute distress, non-toxic appearance. [] HENT: Airway is open. Lower lip appears fat. Patient states it is normal. Normocephalic, bilateral external ears normal, oropharynx moist, no oral exudates, nose normal. [] Eyes: PERRLA, EOMI, conjunctiva normal, no discharge. [] Neck: Normal range of motion, no tenderness, supple, no stridor. [] Cardiovascular:Heart rate regular rhythm, no murmur [] Lungs & Thorax: Bilateral breath sounds clear to auscultation [] Abdomen: Abdomen appears rounded. Bowel sounds are present. No tenderness. Bowel sounds normal, soft, no masses, no pulsatile masses. [] Skin: Dry scaly skin Back: No tenderness, no CVA tenderness. [] Extremities: Left sided paralysis noted, range of motion limited to the left side due to paralysis. Left wrist is in a brace, left lower extremity is in a brace. +2 bilateral upper and lower extremity pulses. Neurologic: Alert and oriented X 3, normal motor function, normal sensory function, no focal deficits noted. Cranial nerves II through XII intact. Patient is sleepy but able to wake up and talk. Psychologic: Affect normal, judgement normal, mood normal. [] (ORION ANGELES APRN) Current Patient Data Vital Signs Vital Signs Date Time Temp Pulse Resp B/P (MAP) Pulse Ox O2 Delivery O2 Flow Rate FiO2 12/12/18 18:35 86 20 181/81 (114) 94 Room Air 12/12/18 15:08 98.5 98.5 (MARISOL DOMINIQUE MD) Lab Values Laboratory Tests Test 12/12/18 16:55 12/12/18 17:30 Stool Occult Blood Positive (NEG) White Blood Count 5.4 x10^3/uL (4.0-11.0) Red Blood Count 1.24 x10^6/uL (4.30-5.70) L Hemoglobin 3.7 g/dL (13.0-17.5) *L Hematocrit 11.9 % (39.0-53.0) *L Mean Corpuscular Volume 96 fL (79-100) Mean Corpuscular Hemoglobin 30 pg (25-35) Mean Corpuscular Hemoglobin Concent 31 g/dL (31-37) Red Cell Distribution Width 16.1 % (11.5-14.5) H Platelet Count 147 x10^3/uL (140-400) Neutrophils (%) (Auto) 77 % (31-73) H Lymphocytes (%) (Auto) 12 % (24-48) L Monocytes (%) (Auto) 11 % (0-9) H Eosinophils (%) (Auto) 1 % (0-3) Basophils (%) (Auto) 0 % (0-3) Neutrophils # (Auto) 4.1 x10^3uL (1.8-7.7) Lymphocytes # (Auto) 0.6 x10^3/uL (1.0-4.8) L Monocytes # (Auto) 0.6 x10^3/uL (0.0-1.1) Eosinophils # (Auto) 0.0 x10^3/uL (0.0-0.7) Basophils # (Auto) 0.0 x10^3/uL (0.0-0.2) Segmented Neutrophils % 82 % (35-66) H Band Neutrophils % 4 % (0-9) Lymphocytes % 7 % (24-48) L Monocytes % 7 % (0-10) Platelet Estimate Adequate (ADEQUATE) [place] Cells Few Crenated Cell Present Prothrombin Time 25.2 SEC (11.7-14.0) H Prothrombin Time INR 2.3 (0.8-1.1) H Sodium Level 152 mmol/L (136-145) H Potassium Level 1.9 mmol/L (3.5-5.1) *L Chloride Level 123 mmol/L (98-107) H Carbon Dioxide Level 10 mmol/L (21-32) *L Anion Gap 19 (6-14) H Blood Urea Nitrogen 46 mg/dL (8-26) H Creatinine 0.7 mg/dL (0.7-1.3) Estimated GFR (Cockcroft-Gault) 137.8 BUN/Creatinine Ratio 66 (6-20) H Glucose Level 50 mg/dL (70-99) L Calcium Level < 5.0 mg/dL (8.5-10.1) *L Magnesium Level 1.1 mg/dL (1.8-2.4) L Total Bilirubin 0.2 mg/dL (0.2-1.0) Aspartate Amino Transferase (AST) 22 U/L (15-37) Alanine Aminotransferase (ALT) 9 U/L (16-63) L Alkaline Phosphatase 23 U/L (46-116) L Creatine Kinase 1980 U/L (39-308) H Creatine Kinase MB (Mass) 2.5 ng/mL (0.0-3.6) Creatine Kinase MB Relative Index 0.1 % (0-4) Troponin I Quantitative < 0.017 ng/mL (0.000-0.055) TT-Ihf-A-Type Natriuretic Peptide 94 pg/mL (0-124) Total Protein 3.2 g/dL (6.4-8.2) L Albumin 1.2 g/dL (3.4-5.0) L Albumin/Globulin Ratio 0.6 (1.0-1.7) L Lipase 72 U/L (73-393) L Thyroid Stimulating Hormone (TSH) 0.306 uIU/mL (0.358-3.74) L Laboratory Tests 12/12/18 17:30 Laboratory Tests 12/12/18 17:30 (MARISOL DOMINIQUE MD) EKG EKG [] (ORION ANGELES APRN) Radiology/Procedures Radiology/Procedures []PROCEDURE: CT HEAD WO CONTRAST CT HEAD WO CONTRAST Indication: ams, hx of stroke nx10 years ago, fall last week Exposure: One or more of the following individualized dose reduction techniques were utilized for this examination: 1. Automated exposure control 2. Adjustment of the mA and/or kV according to patient size 3. Use of iterative reconstruction technique. Comparison: None are available. Contrast: None Findings: There is extensive low-density in the right frontal, parietal and temporal lobe, most likely due to old encephalomalacia or old infarction. There is ex vacuo dilatation of the right lateral ventricle. Posterior fossa unremarkable. No acute intracranial hemorrhage, mass effect, midline shift or abnormal extra-axial fluid collection. Mild generalized atrophy. Orbits appear unremarkable. No evidence of large scalp hematoma. Severe opacification of partially included maxillary sinuses. Mild ethmoid and sphenoid sinus mucosal thickening. Severe right frontal sinus mucosal thickening. The mastoids are not well pneumatized. Intracranial arterial calcifications are seen. No evidence of a depressed skull fracture although a site of tenderness or impact is not known. IMPRESSION: 1. Extensive low-density in the right cerebral hemisphere, most compatible with encephalomalacia or chronic infarct. Note that could be difficult to exclude a superimposed component of acute ischemia if that is of concern. 2. No evidence of acute intracranial hemorrhage. 3. Extensive paranasal sinus disease. Electronically signed by: Kip Salazar MD (12/12/2018 4:41 PM) [facility] DICTATED and SIGNED BY: KIP SALAZAR MD DATE: 12/12/18 7945 (ORION ANGELES APRN) Course & Med Decision Making Course & Med Decision Making Pertinent Labs and Imaging studies reviewed. (See chart for details) This is a 63-year-old male patient presenting to the ED today to be evaluated for multiple complaints, per family patient has had multiple falls this week, patient was also complaining of weakness, abdominal bloating, left hip pain. Patient was very sleepy and arrival to the ED. We gave him a liter of fluid. He is more awake alert and talking. CT of the head is negative for any acute findings. Nursing staff was trying to change his diaper, they noted he had black tarry stools, stool was sent to lab, Hemoccult-positive. Patient states he has had previous history of GI bleed and has had black tarry stools for couple days. CBC hemoglobin of 3.7, hematocrit 11.9, sodium 152, potassium 1.9, bicarbonate 10, anion gap 19, glucose 50, BUN 46, creatinine 0.7, magnesium 1.1. Dr. Dominique was consulted and he evaluated patient and put oders in the Ed. Consulted with Dr. Tabor who accepted patient for admission. He requested we consult nephrology for hypocalcemia and GI. I spoke with she requested we continue IV fluids. I spoke with Dr. Lugo, he requested we keep patient NPO and continue to correct the chemistry. (ORION ANGELES APRN) Course & Med Decision Making yuriy: i discussed in detail delmy chaudhry. i saw this patient. Critical care time was 50 Minutes exclusive of procedures. We began to replete electrolytes in the emergency room we did order for repeat chemistries but the patient was incredibly difficult stick and due to the need for blood transfusions as well as multiple electrolyte repletion, I did place a central line. Informed consent was obtained this was a fairly urgent procedure due to the patient's critical condition. We attempted a right internal jugular access under ultrasound guidance this was very challenging due to limited intravascular volume at the site of the right IJ. Post IJ attempt chest x-ray showed no pneumothorax however I did notice a possible left basilar pneumonia so I did add blood cultures as well as Zosyn and asked the ICU nurses to order this on transfer over there. We then proceeded to manage a femoral triple-lumen catheter under ultrasound guidance areas prepped and draped usual sterile fashion so under technique triple-lumen no couple occasions confirmed with ultrasound sutured in place patient tolerated overall fairly well. Interpretation of blood gas did show a mostly compensated metabolic acidosis. PH was 7.36 patient is going to the ICU for close monitoring and evaluation. (MARISOL DOMINIQUE MD) Dragon Disclaimer Dragon Disclaimer This electronic medical record was generated, in whole or in part, using a voice recognition dictation system. (ORION ANGELES APRN) Departure Departure Impression: Primary Impression: Fall from standing Additional Impressions: Hypocalcemia Hypokalemia Anemia Dehydration, severe Disposition: ADMITTED INPATIENT Admitting Physician: Other (MARISOL DOMINIQUE MD) Condition: CRITICAL Referrals: UCHE TABOR MD (PCP) Problem Qualifiers Primary Impression: Fall from standing Encounter type: initial encounter Qualified Codes: W19.XXXA - Unspecified fall, initial encounter Additional Impressions: Anemia Anemia type: unspecified type Qualified Codes: D64.9 - Anemia, unspecified ORION ANGELES APRN Dec 12, 2018 17:34 MARISOL DOMINIQUE MD Dec 12, 2018 21:23
[2018-12-12] MEDS ORDERED: fentaNYL PF VIAL 100 MCG/2 ML VIAL IV ONE (18:15)
[2018-12-12] MEDS ORDERED: CALCIUM GLUCONATE 1,000 MG/10 ML VIAL. IVP ONE (18:30)
[2018-12-12] MEDS ORDERED: PANTOPRAZOLE IV PUSH 40 MG VIAL. IVP ONE (18:30)
[2018-12-12] MEDS ORDERED: MAGNESIUM SULFATE 2GM 50 ML IV ONE (18:30)
[2018-12-12] MEDS ORDERED: POTASSIUM CHLORIDE 20 MEQ TABLET.ER. PO ONE (18:30)
[2018-12-12] MEDS ORDERED: CALCIUM GLUCONATE 1,000 MG in IV DEXTROSE 5% 100ML 100 ML IV ONE (19:00)
[2018-12-12 19:30] LABS: BASE EXCESS ABG -9 mmol/L (-3-3); HCO3 ABG 15 mmol/L (21-28); PCO2 ABG 27 mmHg (35-46); PO2 ABG 86 mmHg (65-108); SAT O2 ABG 96 % (92-99)
[2018-12-12 19:35] LABS: FIO2 ABG 21
[2018-12-12] MEDS ORDERED: ONDANSETRON PF 4 MG/2 ML VIAL. IV PRN (19:45)
[2018-12-12 19:53] LABS: BILIRUBIN,URINE NEGATIVE (NEG); CLARITY,URINE CLEAR; COLOR,URINE YELLOW; NITRITE,URINE NEGATIVE (NEG); PROTEIN,URINE NEGATIVE (NEG-TRACE); UROBILINOGEN,URINE 0.2 mg/dL (0.2 mg/dL)
[2018-12-12] MEDS ORDERED: MORPHINE SULFATE 4 MG/ML VIAL. IV PRN (20:00)
[2018-12-12 20:03] LABS: AMPHETAMINE/METHAMPHETAMINE NEG (NEG); BARBITURATES NEG (NEG); BENZODIAZEPINES NEG (NEG); CANNABINOIDS NEG (NEG); COCAINE NEG (NEG); METHADONE NEG (NEG); OPIATES POS (NEG); PHENCYCLIDINE NEG (NEG)
[2018-12-12 20:08] LABS: HYALINE CASTS, URINE MANY /HPF; WAXY CASTS,URINE OCCASIONAL /HPF
[2018-12-12 20:09] LABS: BACTERIA,URINE 0 /HPF (0-FEW)
[2018-12-12] MEDS ORDERED: LIDOCAINE 1% Multi-Dose 20 ML VIAL. ONE (20:37)
[2018-12-12] MEDS: PANTOPRAZOLE SODIUM IV DRIP 80 MG in IV NORMAL SALINE 100ML 100 ML IV SCH (21:08)
[2018-12-12] MEDS: POTASSIUM CHLORIDE 10MEQ 100 ML IV SCH ×2 (21:08→21:30)
[2018-12-12 21:14] LABS: BASO % 0 % (0-3); EOS # 0.1 x10^3/uL (0.0-0.7); EOS % 1 % (0-3); HEMATOCRIT 30.2 % (39.0-53.0); HEMOGLOBIN 9.8 g/dL (13.0-17.5); LYMPH # 1.9 x10^3/uL (1.0-4.8); LYMPH % 15 % (24-48); MEAN CORPUSCULAR HEMOGLOBIN 30 pg (25-35); MEAN CORPUSCULAR HGB CONC 33 g/dL (31-37); MEAN CORPUSCULAR VOLUME 91 fL (79-100); MONO # 1.4 x10^3/uL (0.0-1.1); MONO % 11 % (0-9); NEUT % 72 % (31-73); PLATELET COUNT 340 x10^3/uL (140-400); RED BLOOD COUNT 3.32 x10^6/uL (4.30-5.70); RED CELL DISTRIBUTION WIDTH 15.7 % (11.5-14.5); WHITE BLOOD COUNT 12.5 x10^3/uL (4.0-11.0)
[2018-12-12 21:22] LABS: CALCIUM 8.7 mg/dL (8.5-10.1); CREATININE 1.7 mg/dL (0.7-1.3); GFR 49.5; POTASSIUM 4.5 mmol/L (3.5-5.1)
[2018-12-12 21:28] LABS: ALBUMIN 3.2 g/dL (3.4-5.0); ALBUMIN/GLOBULIN RATIO 0.7 (1.0-1.7); TOTAL BILIRUBIN 0.5 mg/dL (0.2-1.0); TOTAL PROTEIN 7.9 g/dL (6.4-8.2)
[2018-12-12 21:30] VITALS: BP 127/65
[2018-12-12] MEDS ORDERED: PIP/TAZO PER PHARMACY MC PRN (21:30)
--- NOTE | 2018-12-12 21:30 | NUR ---
pt admitted to room 105 from ED at this time. upon redrawing of labs, hemoglobin, potassium, calcium and magnesium are all WNL so potassium and calcium that were infusing were stopped, magnesium DCed and no blood has been transfused. pt and family updated on plan of care, unit routines, diet and admission process; all verbalize understanding. call light within reach, will continue to closely monitor.
[2018-12-12 21:53] LABS: MAGNESIUM 2.8 mg/dL (1.8-2.4)
--- NOTE | 2018-12-12 21:56 | RAD ---
Left hip 2 views with one view pelvis. HISTORY: Pain Single view was taken of the pelvis. There is no acute pelvic fracture. Right hip appears unremarkable. AP and lateral views of the right hip show bipolar hip prosthesis in place which remains in good position. there is a fracture at the greater trochanter which was not evident on the old study from July 2018. IMPRESSION: 1. Fracture greater trochanter left hip. Electronically signed by: Jayy Moreira MD (12/12/2018 9:53 PM) [facility]
--- NOTE | 2018-12-12 21:59 | RAD ---
Three-view acute abdominal series. HISTORY: Abdominal bloating 3 views were taken for an acute abdominal series. There are old left rib fractures.. There is linear scarring or atelectasis in the left lung base. The heart is normal in size. There is no effusion. There is thoracolumbar scoliosis. There is moderate stool in the colon. There is increased stool at the rectum. There is no small bowel obstruction. IMPRESSION: 1. Increased stool in the left colon and rectum. 2. No small bowel obstruction. 3. Linear atelectasis left lung base. Electronically signed by: Jayy Moreira MD (12/12/2018 9:56 PM) [facility]
[2018-12-12 22:00] VITALS: BP 116/61
--- NOTE | 2018-12-12 22:30 | NUR ---
pt unable to provide list of current medications when asked or provide an accurate immunization history. family is gone for the night and did not answer when called by phone. will pass on in report.
[2018-12-12] MEDS: PIPERACILLIN/TAZOBACTAM 3.375 GM in IV NORMAL SALINE 50ML 50 ML IV SCH (22:31)
[2018-12-12 23:00] VITALS: BP 107/73
[2018-12-12 23:06] LABS: PROTHROMBIN TIME PATIENT 15.5 SEC (11.7-14.0)
[2018-12-13] VITALS (16 sets, daily range): BP systolic 110–128; BP diastolic 59–88
--- NOTE | 2018-12-13 03:49 | RAD ---
Single view chest dated 12/12/2018. Estimated 07/12/2018. CLINICAL INDICATION: Central line placement. FINDINGS: 2 upright portable images submitted. Heart and mediastinal contours are stable. No central catheter is visualized. There are left-sided rib fractures, unchanged. Patchy and linear perihilar opacities are similar slightly increased from prior study. No apparent pleural effusion. No pneumothorax. IMPRESSION: 1. No evidence of pneumothorax. 2. Patchy perihilar airspace disease, similar to slightly increased from prior study. Consider chronic bronchial inflammatory process or recurrent noncardiogenic edema. 3. Left-sided rib fractures, unchanged. Electronically signed by: Kip Greenberg MD (12/13/2018 3:45 AM) [facility]
[2018-12-13] MEDS: PIPERACILLIN/TAZOBACTAM 3.375 GM in IV NORMAL SALINE 50ML 50 ML IV SCH ×3 (06:09→17:27)
[2018-12-13] MEDS: PANTOPRAZOLE SODIUM IV DRIP 80 MG in IV NORMAL SALINE 100ML 100 ML IV SCH ×2 (06:09→17:31)
[2018-12-13 06:23] LABS: BASO % 0 % (0-3); EOS # 0.1 x10^3/uL (0.0-0.7); EOS % 2 % (0-3); HEMATOCRIT 29.3 % (39.0-53.0); HEMOGLOBIN 9.6 g/dL (13.0-17.5); LYMPH # 1.3 x10^3/uL (1.0-4.8); LYMPH % 13 % (24-48); MEAN CORPUSCULAR HEMOGLOBIN 30 pg (25-35); MEAN CORPUSCULAR HGB CONC 33 g/dL (31-37); MEAN CORPUSCULAR VOLUME 92 fL (79-100); MONO % 11 % (0-9); NEUT # 7.5 x10^3uL (1.8-7.7); NEUT % 75 % (31-73); PLATELET COUNT 289 x10^3/uL (140-400); RED BLOOD COUNT 3.19 x10^6/uL (4.30-5.70); RED CELL DISTRIBUTION WIDTH 15.8 % (11.5-14.5)
[2018-12-13 06:41] LABS: CALCIUM 8.8 mg/dL (8.5-10.1); CREATININE 1.4 mg/dL (0.7-1.3); GFR 61.9; POTASSIUM 4.5 mmol/L (3.5-5.1)
--- NOTE | 2018-12-13 08:34 | EKG ---
[facility] [address] [place] [address] Test Date: 2018-12-12 Test Time: 15:56:19 Pat Name: RILEY NATION Department: Room: 105 1 Gender: M Chronometer Tester: : 1955 Requested By: ORION ANGELES Order Number: [id number] Reading MD: Jhonatan Covington MD Measurements Intervals [place] Rate: 93 P: 65 MN: 142 QRS: 53 QRSD: 72 T: 81 QT: 338 QTc: 423 Interpretive Statements SINUS RHYTHM Electronically Signed On 12-23-2018 21:39:54 CDT by Jhonatan Covington MD
--- NOTE | 2018-12-13 10:40 | PDOC2 ---
CONSULT Date of Consult Date of Consult DATE: 12/13/18 TIME: 10:24 Referring Physician Referring Physician: ER GRANULIZING MACHINE OPERATOR Identification/Chief Complaint Chief Complaint Hypocalcemia Source Source: Chart review, Patient History of Present Illness Reason for Visit: No Note by Hospitalist in chart , Unable to Obtain detailed Hx form Pt - poor Historian Patient is a 63 year old AAmale with history of CVA with left-sided paralysis who presents to the ED today with multiple complaints. Family stated patient has had multiple falls this week. They stated patient's abdomen appears bloated and pt has been appearing more sleepy than normal recently. patient complained of left hip pain at home. I was called by GRANULIZING MACHINE OPERATOR from ED last night reporting that Pt's primary Dr Tabor want to consult renal for Hypocalcemia ca 5.2 she also reported Hgb of 3, Normal Creat, Na of 150 , Black Tarry stools , Bicarb 26 . I corrected the Ca for albumin and it was mildly low(based on labs read out to me) Advised them to consult GI and IVF and management as per primary I reviewed the chart this am- None of the abnormal labs seen. Discussed with RN - upon redrawing of labs, hemoglobin, potassium, calcium and magnesium are all WNL Potassium and calcium that were infusing - started in ED were stopped, magnesium DCed and no blood has been transfused. Currently Pt is having Breakfast , denies any complaints . No CP/SOB . states had Poor PO intake PCP Dr. Tabor Social History Drugs: None Current Problem List Problem List Problems Medical Problems: (1) Dehydration, severe Status: Acute (2) Fall from standing Status: Acute Current Medications Current Medications Current Medications Sodium Chloride 1,000 ml @ 1,000 mls/hr 1X ONCE IV Last administered on at 17:18; Start 12/12/18 at 15:45; Stop 12/12/18 at 16:44; Status DC Fentanyl Citrate (Fentanyl 2ml Vial) 50 mcg 1X ONCE IV Last administered on 12/12/18at 18:24; Start 12/12/18 at 18:15; Stop 12/12/18 at 18:16; Status DC Calcium Gluconate (Calcium Gluconate) 1,000 mg 1X ONCE IVP ; Start 12/12/18 at 18:30; Stop 12/12/18 at 18:31; Status UNV Magnesium Sulfate 50 ml @ 25 mls/hr 1X ONCE IV ; Start 12/12/18 at 18:30; Stop 12/12/18 at 20:29; Status DC Potassium Chloride/Water 100 ml @ 100 mls/hr Q1H IV Last administered on at 21:08; Start 12/12/18 at 18:30; Stop 12/12/18 at 22:29; Status DC Potassium Chloride (Klor-Con) 40 meq 1X ONCE PO ; Start 12/12/18 at 18:30; Stop 12/12/18 at 18:36; Status DC Pantoprazole Sodium 80 mg/ Sodium Chloride 100 ml @ 10 mls/hr Q10H IV Last administered on 12/13/18at 06:09; Start 12/12/18 at 18:30 Pantoprazole Sodium (PROTONIX VIAL for IV PUSH) 80 mg 1X ONCE IVP Last administered on 12/12/18at 21:10; Start 12/12/18 at 18:30; Stop 12/12/18 at 18:33; Status DC Calcium Gluconate 1000 mg/Dextrose 110 ml @ 220 mls/hr 1X ONCE IV Last administered on 12/12/18at 21:07; Start 12/12/18 at 19:00; Stop 12/12/18 at 19:29; Status DC Ondansetron HCl (Zofran) 4 mg PRN Q8HRS PRN IV NAUSEA/VOMITING; Start 12/12/18 at 19:45; Stop 12/13/18 at 19:44 Morphine Sulfate (Morphine Sulfate) 4 mg PRN Q2HR PRN IV PAIN; Start 12/12/18 at 20:00; Stop 12/13/18 at 19:59 Sodium Chloride 1,000 ml @ 125 mls/hr 1X ONCE IV Last administered on at 22:03; Start 12/12/18 at 20:00; Stop 12/13/18 at 03:59; Status DC Lidocaine HCl (Lidocaine 1% 20ml Vial) 20 ml STK-MED ONCE .ROUTE ; Start at 20:37; Stop 12/12/18 at 20:38; Status DC Piperacillin Sod/ Tazobactam Sod (Zosyn Per Pharmacy) 1 each PRN DAILY PRN MC SEE COMMENTS; Start 12/12/18 at 21:30 Piperacillin Sod/ Tazobactam Sod 3.375 gm/Sodium Chloride 50 ml @ 100 mls/hr Q6HRS IV Last administered on 12/13/18at 06:09; Start 12/12/18 at 22:00 Active Scripts Active Levaquin (Levofloxacin) 750 Mg Tablet 1 Tab PO DAILY Henderson 5-325 Tablet (Acetaminophen/Hydrocodone Bitart) 1 Each Tablet 1 Tab PO Q6HRS PRN Cyclobenzaprine Hcl 10 Mg Tablet 1 Tab PO TID Reported Carafate (Sucralfate) 1 Gm/10 Ml Oral.susp 1 Gm PO QIDACHS Protonix (Pantoprazole Sodium) 20 Mg Tablet.dr 40 Mg PO DAILY Hydrocodone-Apap 7.5-325 (Hydrocodone Bit/Acetaminophen) 1 Each Tablet 7.5 Mg PO PRN Q4-6HRS PRN Ferrous Sulfate 325 Mg Tablet 325 Mg PO BIDWMEALS Casodex (Bicalutamide) 50 Mg Tablet 1 Tab PO DAILY Zoloft (Sertraline Hcl) 50 Mg Tablet 1 Tab PO DAILY Plavix (Clopidogrel Bisulfate) 75 Mg Tablet 1 Tab PO DAILY Allergies Allergies: Coded Allergies: No Known Drug Allergies (Unverified , 12/16/17) ROS Review of System As per HPI Physical Exam Physical Exam GEN: Propped up in bed,NAD HEEN: OM moist NECK: supple CVS: RRR RESP: CTA Bilat, Non labored GI: BS + ve, NO Bruit, Non Tender, : No CVA tenderness, No Suprapubic Tenderness, Calero + Neuro- AXOX3 Skin No rash Vital Signs Vital Signs Date Time Temp Pulse Resp B/P (MAP) Pulse Ox O2 Delivery O2 Flow Rate FiO2 12/13/18 09:00 75 16 114/69 (84) 99 Room Air 12/13/18 07:00 97.6 97.6 Assessment & Plan SWAPNA- Pre-renal / Poor PO intake Baseline in January 0.9 Mild Rhabdo- CPK elevated E-Lytes and acid base normal , Good UOP UA- unremarkable excepy Hyaline cast Monitor Hypocalcemia- Normal Calcium Anemia- > 7 No indication for Transfusion Discussed with RN at bedside Labs Labs Laboratory Tests Test 12/12/18 16:55 12/12/18 19:20 12/12/18 19:38 12/12/18 21:00 Stool Occult Blood Positive (NEG) O2 Saturation 96 % (92-99) Arterial Blood pH 7.36 (7.35-7.45) Arterial Blood pCO2 at Patient Temp 27 mmHg (35-46) Arterial Blood pO2 at Patient Temp 86 mmHg (65-108) Arterial Blood HCO3 15 mmol/L (21-28) Arterial Blood Base Excess -9 mmol/L (-3-3) FiO2 21 Urine Collection Type Unknown Urine Color Yellow Urine Clarity Clear Urine pH 6.0 Urine Specific [place] 1.020 Urine Protein Negative mg/dL (NEG-TRACE) Urine Glucose (UA) Negative mg/dL (NEG) Urine Ketones (Stick) Negative mg/dL (NEG) Urine Blood Trace (NEG) Urine Nitrite Negative (NEG) Urine Bilirubin Negative (NEG) Urine Urobilinogen Dipstick 0.2 mg/dL (0.2 mg/dL) Urine Leukocyte Esterase Negative (NEG) Urine RBC 1-2 /HPF (0-2) Urine WBC 1-4 /HPF (0-4) Urine Bacteria 0 /HPF (0-FEW) Urine Hyaline Casts Many /HPF Urine Waxy Casts Occasional /HPF Urine Mucus Marked /LPF Urine Opiates Screen Pos (NEG) Urine Methadone Screen Neg (NEG) Urine Barbiturates Neg (NEG) Urine Phencyclidine Screen Neg (NEG) Urine Amphetamine/Methamphetamine Neg (NEG) Urine Benzodiazepines Screen Neg (NEG) Urine Cocaine Screen Neg (NEG) Urine Cannabinoids Screen Neg (NEG) Urine Ethyl Alcohol Neg (NEG) White Blood Count 12.5 x10^3/uL (4.0-11.0) Red Blood Count 3.32 x10^6/uL (4.30-5.70) Hemoglobin 9.8 g/dL (13.0-17.5) Hematocrit 30.2 % (39.0-53.0) Mean Corpuscular Volume 91 fL (79-100) Mean Corpuscular Hemoglobin 30 pg (25-35) Mean Corpuscular Hemoglobin Concent 33 g/dL (31-37) Red Cell Distribution Width 15.7 % (11.5-14.5) Platelet Count 340 x10^3/uL (140-400) Neutrophils (%) (Auto) 72 % (31-73) Lymphocytes (%) (Auto) 15 % (24-48) Monocytes (%) (Auto) 11 % (0-9) Eosinophils (%) (Auto) 1 % (0-3) Basophils (%) (Auto) 0 % (0-3) Neutrophils # (Auto) 9.0 x10^3uL (1.8-7.7) Lymphocytes # (Auto) 1.9 x10^3/uL (1.0-4.8) Monocytes # (Auto) 1.4 x10^3/uL (0.0-1.1) Eosinophils # (Auto) 0.1 x10^3/uL (0.0-0.7) Basophils # (Auto) 0.0 x10^3/uL (0.0-0.2) Sodium Level 143 mmol/L (136-145) Potassium Level 4.5 mmol/L (3.5-5.1) Chloride Level 107 mmol/L (98-107) Carbon Dioxide Level 18 mmol/L (21-32) Anion Gap 18 (6-14) Blood Urea Nitrogen 85 mg/dL (8-26) Creatinine 1.7 mg/dL (0.7-1.3) Estimated GFR (Cockcroft-Gault) 49.5 BUN/Creatinine Ratio 50 (6-20) Glucose Level 103 mg/dL (70-99) Calcium Level 8.7 mg/dL (8.5-10.1) Magnesium Level 2.8 mg/dL (1.8-2.4) Total Bilirubin 0.5 mg/dL (0.2-1.0) Aspartate Amino Transf (AST/SGOT) 63 U/L (15-37) Alanine Aminotransferase (ALT/SGPT) 22 U/L (16-63) Alkaline Phosphatase 58 U/L (46-116) Creatine Kinase 5937 U/L (39-308) Creatine Kinase MB (Mass) 6.6 ng/mL (0.0-3.6) Creatine Kinase MB Relative Index 0.1 % (0-4) Troponin I Quantitative < 0.017 ng/mL (0.000-0.055) ZD-Qly-N-Type Natriuretic Peptide 196 pg/mL (0-124) Total Protein 7.9 g/dL (6.4-8.2) Albumin 3.2 g/dL (3.4-5.0) Albumin/Globulin Ratio 0.7 (1.0-1.7) Lipase 171 U/L (73-393) Thyroid Stimulating Hormone (TSH) 0.890 uIU/mL (0.358-3.74) Test 12/12/18 22:40 12/13/18 06:10 Prothrombin Time 15.5 SEC (11.7-14.0) Prothromb Time International Ratio 1.3 (0.8-1.1) Ionized Calcium 1.23 mmol/L (1.13-1.32) White Blood Count 10.0 x10^3/uL (4.0-11.0) Red Blood Count 3.19 x10^6/uL (4.30-5.70) Hemoglobin 9.6 g/dL (13.0-17.5) Hematocrit 29.3 % (39.0-53.0) Mean Corpuscular Volume 92 fL (79-100) Mean Corpuscular Hemoglobin 30 pg (25-35) Mean Corpuscular Hemoglobin Concent 33 g/dL (31-37) Red Cell Distribution Width 15.8 % (11.5-14.5) Platelet Count 289 x10^3/uL (140-400) Neutrophils (%) (Auto) 75 % (31-73) Lymphocytes (%) (Auto) 13 % (24-48) Monocytes (%) (Auto) 11 % (0-9) Eosinophils (%) (Auto) 2 % (0-3) Basophils (%) (Auto) 0 % (0-3) Neutrophils # (Auto) 7.5 x10^3uL (1.8-7.7) Lymphocytes # (Auto) 1.3 x10^3/uL (1.0-4.8) Monocytes # (Auto) 1.0 x10^3/uL (0.0-1.1) Eosinophils # (Auto) 0.1 x10^3/uL (0.0-0.7) Basophils # (Auto) 0.0 x10^3/uL (0.0-0.2) Sodium Level 143 mmol/L (136-145) Potassium Level 4.5 mmol/L (3.5-5.1) Chloride Level 112 mmol/L (98-107) Carbon Dioxide Level 18 mmol/L (21-32) Anion Gap 13 (6-14) Blood Urea Nitrogen 67 mg/dL (8-26) Creatinine 1.4 mg/dL (0.7-1.3) Estimated GFR (Cockcroft-Gault) 61.9 Glucose Level 105 mg/dL (70-99) Calcium Level 8.8 mg/dL (8.5-10.1) Laboratory Tests Test 12/12/18 16:55 12/12/18 19:20 12/12/18 19:38 12/12/18 21:00 Stool Occult Blood Positive (NEG) O2 Saturation 96 % (92-99) Arterial Blood pH 7.36 (7.35-7.45) Arterial Blood pCO2 at Patient Temp 27 mmHg (35-46) Arterial Blood pO2 at Patient Temp 86 mmHg (65-108) Arterial Blood HCO3 15 mmol/L (21-28) Arterial Blood Base Excess -9 mmol/L (-3-3) FiO2 21 Urine Collection Type Unknown Urine Color Yellow Urine Clarity Clear Urine pH 6.0 Urine Specific [place] 1.020 Urine Protein Negative mg/dL (NEG-TRACE) Urine Glucose (UA) Negative mg/dL (NEG) Urine Ketones (Stick) Negative mg/dL (NEG) Urine Blood Trace (NEG) Urine Nitrite Negative (NEG) Urine Bilirubin Negative (NEG) Urine Urobilinogen Dipstick 0.2 mg/dL (0.2 mg/dL) Urine Leukocyte Esterase Negative (NEG) Urine RBC 1-2 /HPF (0-2) Urine WBC 1-4 /HPF (0-4) Urine Bacteria 0 /HPF (0-FEW) Urine Hyaline Casts Many /HPF Urine Waxy Casts Occasional /HPF Urine Mucus Marked /LPF Urine Opiates Screen Pos (NEG) Urine Methadone Screen Neg (NEG) Urine Barbiturates Neg (NEG) Urine Phencyclidine Screen Neg (NEG) Urine Amphetamine/Methamphetamine Neg (NEG) Urine Benzodiazepines Screen Neg (NEG) Urine Cocaine Screen Neg (NEG) Urine Cannabinoids Screen Neg (NEG) Urine Ethyl Alcohol Neg (NEG) White Blood Count 12.5 x10^3/uL (4.0-11.0) Red Blood Count 3.32 x10^6/uL (4.30-5.70) Hemoglobin 9.8 g/dL (13.0-17.5) Hematocrit 30.2 % (39.0-53.0) Mean Corpuscular Volume 91 fL (79-100) Mean Corpuscular Hemoglobin 30 pg (25-35) Mean Corpuscular Hemoglobin Concent 33 g/dL (31-37) Red Cell Distribution Width 15.7 % (11.5-14.5) Platelet Count 340 x10^3/uL (140-400) Neutrophils (%) (Auto) 72 % (31-73) Lymphocytes (%) (Auto) 15 % (24-48) Monocytes (%) (Auto) 11 % (0-9) Eosinophils (%) (Auto) 1 % (0-3) Basophils (%) (Auto) 0 % (0-3) Neutrophils # (Auto) 9.0 x10^3uL (1.8-7.7) Lymphocytes # (Auto) 1.9 x10^3/uL (1.0-4.8) Monocytes # (Auto) 1.4 x10^3/uL (0.0-1.1) Eosinophils # (Auto) 0.1 x10^3/uL (0.0-0.7) Basophils # (Auto) 0.0 x10^3/uL (0.0-0.2) Sodium Level 143 mmol/L (136-145) Potassium Level 4.5 mmol/L (3.5-5.1) Chloride Level 107 mmol/L (98-107) Carbon Dioxide Level 18 mmol/L (21-32) Anion Gap 18 (6-14) Blood Urea Nitrogen 85 mg/dL (8-26) Creatinine 1.7 mg/dL (0.7-1.3) Estimated GFR (Cockcroft-Gault) 49.5 BUN/Creatinine Ratio 50 (6-20) Glucose Level 103 mg/dL (70-99) Calcium Level 8.7 mg/dL (8.5-10.1) Magnesium Level 2.8 mg/dL (1.8-2.4) Total Bilirubin 0.5 mg/dL (0.2-1.0) Aspartate Amino Transf (AST/SGOT) 63 U/L (15-37) Alanine Aminotransferase (ALT/SGPT) 22 U/L (16-63) Alkaline Phosphatase 58 U/L (46-116) Creatine Kinase 5937 U/L (39-308) Creatine Kinase MB (Mass) 6.6 ng/mL (0.0-3.6) Creatine Kinase MB Relative Index 0.1 % (0-4) Troponin I Quantitative < 0.017 ng/mL (0.000-0.055) JH-Lkf-E-Type Natriuretic Peptide 196 pg/mL (0-124) Total Protein 7.9 g/dL (6.4-8.2) Albumin 3.2 g/dL (3.4-5.0) Albumin/Globulin Ratio 0.7 (1.0-1.7) Lipase 171 U/L (73-393) Thyroid Stimulating Hormone (TSH) 0.890 uIU/mL (0.358-3.74) Test 12/12/18 22:40 12/13/18 06:10 Prothrombin Time 15.5 SEC (11.7-14.0) Prothromb Time International Ratio 1.3 (0.8-1.1) Ionized Calcium 1.23 mmol/L (1.13-1.32) White Blood Count 10.0 x10^3/uL (4.0-11.0) Red Blood Count 3.19 x10^6/uL (4.30-5.70) Hemoglobin 9.6 g/dL (13.0-17.5) Hematocrit 29.3 % (39.0-53.0) Mean Corpuscular Volume 92 fL (79-100) Mean Corpuscular Hemoglobin 30 pg (25-35) Mean Corpuscular Hemoglobin Concent 33 g/dL (31-37) Red Cell Distribution Width 15.8 % (11.5-14.5) Platelet Count 289 x10^3/uL (140-400) Neutrophils (%) (Auto) 75 % (31-73) Lymphocytes (%) (Auto) 13 % (24-48) Monocytes (%) (Auto) 11 % (0-9) Eosinophils (%) (Auto) 2 % (0-3) Basophils (%) (Auto) 0 % (0-3) Neutrophils # (Auto) 7.5 x10^3uL (1.8-7.7) Lymphocytes # (Auto) 1.3 x10^3/uL (1.0-4.8) Monocytes # (Auto) 1.0 x10^3/uL (0.0-1.1) Eosinophils # (Auto) 0.1 x10^3/uL (0.0-0.7) Basophils # (Auto) 0.0 x10^3/uL (0.0-0.2) Sodium Level 143 mmol/L (136-145) Potassium Level 4.5 mmol/L (3.5-5.1) Chloride Level 112 mmol/L (98-107) Carbon Dioxide Level 18 mmol/L (21-32) Anion Gap 13 (6-14) Blood Urea Nitrogen 67 mg/dL (8-26) Creatinine 1.4 mg/dL (0.7-1.3) Estimated GFR (Cockcroft-Gault) 61.9 Glucose Level 105 mg/dL (70-99) Calcium Level 8.8 mg/dL (8.5-10.1) Review All relevant outside records, renal labs, imaging studies, telemetry/EKG's were reviewed. Images Images CxR-- 1. No evidence of pneumothorax. 2. Patchy perihilar airspace disease, similar to slightly increased from prior study. Consider chronic bronchial inflammatory process or recurrent noncardiogenic edema. 3. Left-sided rib fractures, unchanged. RUPESH SANDERS MD Dec 13, 2018 10:40
--- NOTE | 2018-12-13 11:56 | HP ---
ADMIT DATE: CHIEF COMPLAINT AND HISTORY OF PRESENT ILLNESS: This 63-year-old black male is well known to me from followup in the office. The patient brought by family to the Emergency Room after several falls during this week and weakness. He had had some black tarry stools, in addition had not eaten for 3-4 days, which he blames on problems with his girlfriend. He initially had blood drawn showing multiple abnormalities. I asked the Emergency Room to repeat them, which showed that they were a lab error. He still was anemic compared to his usual stuff, had heme positive stool, was weak, was found to have a left greater trochanteric fracture at his hip and admitted to the ICU for the same. PAST MEDICAL HISTORY: Remarkable for prior right parietal CVA with left hemiparesis, hyperlipidemia, hypertension, depression, history of gastric ulcer with significant bleed, history of prostate cancer. MEDICATIONS: Brought with the patient, listed on the computer and have been addressed. ALLERGIES: He has no known drug allergies. SOCIAL HISTORY: He is a smoker, nondrinker, does not abuse drugs. Single, lives at home alone. FAMILY HISTORY: Noncontributory. REVIEW OF SYSTEMS: Remarkable for him wanting something to eat or drink as he is quite thirsty and hungry as well as left hip pain, otherwise has essentially negative review of systems. PHYSICAL EXAMINATION: GENERAL: He is a well-developed, well-nourished black male, in no acute distress. VITAL SIGNS: Stable. He is afebrile. HEAD, EYES, EARS, NOSE AND THROAT: Unremarkable. He does have dryness, however, in his mucous membranes and lips. NECK: Supple, no adenopathy or thyromegaly. CHEST: Clear to auscultation and percussion. HEART: Regular rate and rhythm without S3, S4, or murmur. ABDOMEN: Soft, nontender, without hepatosplenomegaly or masses. EXTREMITIES: Without cyanosis, clubbing, edema. NEUROLOGIC: Remarkable for stable left hemiparesis following a CVA. LABORATORY DATA: Again, does have heme positive stool, melanotic stool in the Emergency Room. Hemoglobin is 9.8, which is low, as I believe he normally runs up around 14 or so, but we would have to check in the office to be sure. CPK is elevated at 5937, likely due to the falls with some rhabdomyolysis. BUN and creatinine were elevated initially 85 and 1.7 and by the morning after admission are down to 67 and 1.4, probably multifactorial including the rhabdomyolysis, dehydration present on admission and intraluminal GI blood. Albumin is slightly low at 3.2 consistent with mild protein-calorie malnutrition. Toxicology is positive for opiates, which is a prescribed medicine for him. Urinalysis essentially unremarkable. INR 1.3. IMPRESSION: 1. Weakness with falls, likely due to a combination of gastrointestinal bleed and dehydration. 2. Multiple other problems listed above. PLAN: The patient has been admitted. Renal and GI were initially consulted for the initial labs which were erroneous. However, GI will continue to see the patient because he definitely does have the GI bleed. Serial H's and H's will be followed. He will be given food and drink, regular home meds will be restarted and CPKs will be followed. UCHE HINSON MD DR: TOMASA/gaurav JOB#: [id number] / [id number]
[2018-12-13] MEDS ORDERED: SUCRALFATE 1 GM TABLET. PO SCH (12:00)
--- NOTE | 2018-12-13 12:22 | PDOC ---
GI PROGRESS NOTES Date Date/Time DATE: 12/13/18 TIME: 12:20 Subjective Subjective Melena, heme + stool anemia, poor PO intake see dictated note Plan- PPI and carafate consider EGD once decision made on hip fx Objective Vitals Vital Signs Date Time Temp Pulse Resp B/P (MAP) Pulse Ox O2 Delivery O2 Flow Rate FiO2 12/13/18 09:00 75 16 114/69 (84) 99 Room Air 12/13/18 08:00 92 15 123/71 (88) 98 Room Air 12/13/18 07:00 97.6 82 14 118/70 (86) 99 Room Air 97.6 12/13/18 06:00 76 18 120/73 (89) 99 Room Air 12/13/18 05:00 89 20 124/78 (93) 98 Room Air 12/13/18 04:00 97.4 85 23 115/74 (88) 99 Room Air 97.4 12/13/18 03:00 80 13 122/77 (92) 98 Room Air 12/13/18 02:00 84 19 120/71 (87) 98 Room Air 12/13/18 01:00 94 21 112/67 (82) 99 Room Air 12/13/18 00:00 98.0 92 14 110/71 (84) 98 Room Air 98.0 12/12/18 23:00 89 14 107/73 (84) 98 Room Air 12/12/18 22:00 91 16 116/61 (79) 99 Room Air 12/12/18 21:30 97.8 92 20 127/65 (85) 99 Room Air 97.8 12/12/18 21:00 112 126/67 (86) 12/12/18 20:30 124 115/65 (82) 12/12/18 20:00 94 124/69 (87) 12/12/18 19:30 96 118/73 (88) 12/12/18 19:00 132/77 (95) 12/12/18 18:35 86 20 181/81 (114) 94 Room Air 12/12/18 18:24 20 94 Room Air 12/12/18 18:00 96 20 129/68 (88) 93 Room Air 12/12/18 17:30 102 20 114/59 (77) 94 Room Air 12/12/18 17:00 104 20 116/86 (96) 95 Room Air 12/12/18 16:00 88 20 122/84 (97) 96 Room Air 12/12/18 15:08 98.5 99 18 128/79 (95) 99 Room Air 98.5 Labs Labs Laboratory Tests Test 12/12/18 16:55 12/12/18 19:20 12/12/18 19:38 12/12/18 21:00 Stool Occult Blood Positive (NEG) O2 Saturation 96 % (92-99) Arterial Blood pH 7.36 (7.35-7.45) Arterial Blood pCO2 at Patient Temp 27 mmHg (35-46) Arterial Blood pO2 at Patient Temp 86 mmHg (65-108) Arterial Blood HCO3 15 mmol/L (21-28) Arterial Blood Base Excess -9 mmol/L (-3-3) FiO2 21 Urine Collection Type Unknown Urine Color Yellow Urine Clarity Clear Urine pH 6.0 Urine Specific [place] 1.020 Urine Protein Negative mg/dL (NEG-TRACE) Urine Glucose (UA) Negative mg/dL (NEG) Urine Ketones (Stick) Negative mg/dL (NEG) Urine Blood Trace (NEG) Urine Nitrite Negative (NEG) Urine Bilirubin Negative (NEG) Urine Urobilinogen Dipstick 0.2 mg/dL (0.2 mg/dL) Urine Leukocyte Esterase Negative (NEG) Urine RBC 1-2 /HPF (0-2) Urine WBC 1-4 /HPF (0-4) Urine Bacteria 0 /HPF (0-FEW) Urine Hyaline Casts Many /HPF Urine Waxy Casts Occasional /HPF Urine Mucus Marked /LPF Urine Opiates Screen Pos (NEG) Urine Methadone Screen Neg (NEG) Urine Barbiturates Neg (NEG) Urine Phencyclidine Screen Neg (NEG) Urine Amphetamine/Methamphetamine Neg (NEG) Urine Benzodiazepines Screen Neg (NEG) Urine Cocaine Screen Neg (NEG) Urine Cannabinoids Screen Neg (NEG) Urine Ethyl Alcohol Neg (NEG) White Blood Count 12.5 x10^3/uL (4.0-11.0) Red Blood Count 3.32 x10^6/uL (4.30-5.70) Hemoglobin 9.8 g/dL (13.0-17.5) Hematocrit 30.2 % (39.0-53.0) Mean Corpuscular Volume 91 fL (79-100) Mean Corpuscular Hemoglobin 30 pg (25-35) Mean Corpuscular Hemoglobin Concent 33 g/dL (31-37) Red Cell Distribution Width 15.7 % (11.5-14.5) Platelet Count 340 x10^3/uL (140-400) Neutrophils (%) (Auto) 72 % (31-73) Lymphocytes (%) (Auto) 15 % (24-48) Monocytes (%) (Auto) 11 % (0-9) Eosinophils (%) (Auto) 1 % (0-3) Basophils (%) (Auto) 0 % (0-3) Neutrophils # (Auto) 9.0 x10^3uL (1.8-7.7) Lymphocytes # (Auto) 1.9 x10^3/uL (1.0-4.8) Monocytes # (Auto) 1.4 x10^3/uL (0.0-1.1) Eosinophils # (Auto) 0.1 x10^3/uL (0.0-0.7) Basophils # (Auto) 0.0 x10^3/uL (0.0-0.2) Sodium Level 143 mmol/L (136-145) Potassium Level 4.5 mmol/L (3.5-5.1) Chloride Level 107 mmol/L (98-107) Carbon Dioxide Level 18 mmol/L (21-32) Anion Gap 18 (6-14) Blood Urea Nitrogen 85 mg/dL (8-26) Creatinine 1.7 mg/dL (0.7-1.3) Estimated GFR (Cockcroft-Gault) 49.5 BUN/Creatinine Ratio 50 (6-20) Glucose Level 103 mg/dL (70-99) Calcium Level 8.7 mg/dL (8.5-10.1) Magnesium Level 2.8 mg/dL (1.8-2.4) Total Bilirubin 0.5 mg/dL (0.2-1.0) Aspartate Amino Transf (AST/SGOT) 63 U/L (15-37) Alanine Aminotransferase (ALT/SGPT) 22 U/L (16-63) Alkaline Phosphatase 58 U/L (46-116) Creatine Kinase 5937 U/L (39-308) Creatine Kinase MB (Mass) 6.6 ng/mL (0.0-3.6) Creatine Kinase MB Relative Index 0.1 % (0-4) Troponin I Quantitative < 0.017 ng/mL (0.000-0.055) PG-Bfq-R-Type Natriuretic Peptide 196 pg/mL (0-124) Total Protein 7.9 g/dL (6.4-8.2) Albumin 3.2 g/dL (3.4-5.0) Albumin/Globulin Ratio 0.7 (1.0-1.7) Lipase 171 U/L (73-393) Thyroid Stimulating Hormone (TSH) 0.890 uIU/mL (0.358-3.74) Test 12/12/18 22:40 12/13/18 06:10 Prothrombin Time 15.5 SEC (11.7-14.0) Prothromb Time International Ratio 1.3 (0.8-1.1) Ionized Calcium 1.23 mmol/L (1.13-1.32) White Blood Count 10.0 x10^3/uL (4.0-11.0) Red Blood Count 3.19 x10^6/uL (4.30-5.70) Hemoglobin 9.6 g/dL (13.0-17.5) Hematocrit 29.3 % (39.0-53.0) Mean Corpuscular Volume 92 fL (79-100) Mean Corpuscular Hemoglobin 30 pg (25-35) Mean Corpuscular Hemoglobin Concent 33 g/dL (31-37) Red Cell Distribution Width 15.8 % (11.5-14.5) Platelet Count 289 x10^3/uL (140-400) Neutrophils (%) (Auto) 75 % (31-73) Lymphocytes (%) (Auto) 13 % (24-48) Monocytes (%) (Auto) 11 % (0-9) Eosinophils (%) (Auto) 2 % (0-3) Basophils (%) (Auto) 0 % (0-3) Neutrophils # (Auto) 7.5 x10^3uL (1.8-7.7) Lymphocytes # (Auto) 1.3 x10^3/uL (1.0-4.8) Monocytes # (Auto) 1.0 x10^3/uL (0.0-1.1) Eosinophils # (Auto) 0.1 x10^3/uL (0.0-0.7) Basophils # (Auto) 0.0 x10^3/uL (0.0-0.2) Sodium Level 143 mmol/L (136-145) Potassium Level 4.5 mmol/L (3.5-5.1) Chloride Level 112 mmol/L (98-107) Carbon Dioxide Level 18 mmol/L (21-32) Anion Gap 13 (6-14) Blood Urea Nitrogen 67 mg/dL (8-26) Creatinine 1.4 mg/dL (0.7-1.3) Estimated GFR (Cockcroft-Gault) 61.9 Glucose Level 105 mg/dL (70-99) Calcium Level 8.8 mg/dL (8.5-10.1) JESSICA VICKERS MD Dec 13, 2018 12:22
[2018-12-13] MEDS: BICALUTAMIDE 50 MG TABLET PO SCH (13:21)
[2018-12-13] MEDS: SERTRALINE 50 MG TABLET. PO SCH (13:21)
[2018-12-13] MEDS: HYDROcodone/APAP 5/325MG 1 TAB TABLET PO PRN (13:22)
--- NOTE | 2018-12-13 14:41 | NUR ---
7A 12/13 Bedside swallow study completed w/o deficits. Liquids started after Dr Tabor in/orders changed. 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 Diet change initiated. Call from [facility],informed of test cancelation per MD. Patient able to tolerate solids,liquids ,self feed after necessary items cut . Left hip trochanter. break' questionably new. Consult to Dr Nohemy parks phone orders noted. Assist to BS commode after placement L leg brace, shoes,gait belt & cane. Concerted effort in transfer from bed to [facility] then chair x3 assist. Pain med as needed post activity. Reports " pain in L hip area approx 2 weeks duration. Continue POC
[2018-12-13] MEDS: SUCRALFATE 1 GM/10 ML ORAL.SUSP. PO SCH ×2 (17:29→20:20)
[2018-12-13] MEDS: FERROUS SULFATE 325 MG TABLET. PO SCH (17:29)
--- NOTE | 2018-12-13 18:13 | NUR ---
Time change for am test . Dr Martinez notified. Patient to transfer to [id number] but difficulty reaching staff. Will call report at shift change and transfer at that time. Continue POC
--- NOTE | 2018-12-13 19:12 | NUR ---
Transfer per bed to 6[facility] w hospital items,glasses,cane,cell ( no battery charger conveyor line), foot brace. No wrist brace seen aftertransfer to ICU from ER. Informed NPO status ladan EGD. Permits signed earlier and charted.
[2018-12-13] MEDS ORDERED: IV NORMAL SALINE 1000ML BAG 1,000 ML IV SCH (19:30)
[2018-12-13] MEDS: IV NORMAL SALINE 1000ML BAG 1,000 ML IV SCH (20:20)
[2018-12-13 20:43] LABS: ALBUMIN 2.5 g/dL (3.4-5.0); ALBUMIN/GLOBULIN RATIO 0.5 (1.0-1.7); CALCIUM 8.2 mg/dL (8.5-10.1); CREATININE 1.3 mg/dL (0.7-1.3); GFR 67.5; POTASSIUM 4.3 mmol/L (3.5-5.1); TOTAL BILIRUBIN 0.5 mg/dL (0.2-1.0); TOTAL PROTEIN 7.1 g/dL (6.4-8.2)
[2018-12-14 03:48] VITALS: BP 126/72
[2018-12-14] MEDS: PIPERACILLIN/TAZOBACTAM 3.375 GM in IV NORMAL SALINE 50ML 50 ML IV SCH ×4 (04:30→18:31)
[2018-12-14] MEDS: PANTOPRAZOLE SODIUM IV DRIP 80 MG in IV NORMAL SALINE 100ML 100 ML IV SCH (06:07)
[2018-12-14 06:37] LABS: BASO % 1 % (0-3); EOS # 0.3 x10^3/uL (0.0-0.7); EOS % 3 % (0-3); HEMATOCRIT 25.8 % (39.0-53.0); HEMOGLOBIN 8.4 g/dL (13.0-17.5); LYMPH # 1.8 x10^3/uL (1.0-4.8); LYMPH % 21 % (24-48); MEAN CORPUSCULAR HEMOGLOBIN 30 pg (25-35); MEAN CORPUSCULAR HGB CONC 33 g/dL (31-37); MEAN CORPUSCULAR VOLUME 92 fL (79-100); MONO % 11 % (0-9); NEUT # 5.7 x10^3uL (1.8-7.7); NEUT % 64 % (31-73); PLATELET COUNT 238 x10^3/uL (140-400); RED BLOOD COUNT 2.81 x10^6/uL (4.30-5.70); RED CELL DISTRIBUTION WIDTH 15.7 % (11.5-14.5); WHITE BLOOD COUNT 8.8 x10^3/uL (4.0-11.0)
[2018-12-14 06:53] LABS: CALCIUM 8.4 mg/dL (8.5-10.1); CREATININE 1.1 mg/dL (0.7-1.3); GFR 81.8; POTASSIUM 4.2 mmol/L (3.5-5.1)
--- NOTE | 2018-12-14 07:21 | NUR ---
Pt with abx recorded at 0430 however abx was given earlier however unable to change the time. Did not show scanned at 0100.
[2018-12-14] MEDS: SUCRALFATE 1 GM/10 ML ORAL.SUSP. PO SCH ×4 (07:30→21:04)
[2018-12-14 07:42] VITALS: BP 102/58
[2018-12-14] MEDS ORDERED: IV RINGERS,LACTATED 1000ML 1,000 ML IV SCH (08:28)
[2018-12-14] MEDS ORDERED: MORPHINE SULFATE 2 MG/ML VIAL. IV PRN (08:30)
[2018-12-14] MEDS ORDERED: PROCHLORPERAZINE 10 MG/2 ML VIAL. IV PRN (08:30)
[2018-12-14] MEDS ORDERED: LIDOCAINE 1% PF 2 ML VIAL. ID PRN (08:30)
[2018-12-14] MEDS ORDERED: fentaNYL PF VIAL 100 MCG/2 ML VIAL IV PRN ×2 (08:30)
[2018-12-14] MEDS ORDERED: HYDROmorphone 2 MG/ML VIAL IV PRN (08:30)
[2018-12-14] MEDS ORDERED: PROPOFOL 20 ML IV ONE (08:36)
--- NOTE | 2018-12-14 08:59 | PDOC2 ---
CONSULT Date of Consult Date of Consult DATE: 12/14/18 TIME: 08:56 Reason for Consult Reason for Consult: Left greater trochanter fracture Referring Physician Referring Physician: Sharona Identification/Chief Complaint Chief Complaint Left hip pain Source Source: Patient History of Present Illness Reason for Visit: Patient is a pleasant 63-year-old gentleman with a history of CVA and residual left-sided hemiparesis who ambulates at home a little bit. He tells me that he had a fall about 3 weeks ago and has had more difficulty walking since then. He was admitted to the hospital for multiple abnormalities and suspicion of a GI bleed. He tells me his hip doesn't hurt too bad at rest. It is sore when he walks on it. He has been able to bear weight on this little bit. He normally ambulates with the assistance of a cane. The pain doesn't radiate. He is scheduled to undergo upper GI endoscopy soon. Past Medical History Cardiovascular: HTN Pulmonary: No pertinent hx CENTRAL NERVOUS SYSTEM: CVA GI: GERD, GI bleed Musculoskeletal: Osteoarthritis Past Surgical History Past Surgical History Left hip hemiarthroplasty about 10 years ago Family History Family History: Heart Disease Social History No ALCOHOL: none Drugs: None Current Problem List Problem List Problems Medical Problems: (1) Dehydration, severe Status: Acute (2) Fall from standing Status: Acute Current Medications Current Medications Current Medications Sodium Chloride 1,000 ml @ 1,000 mls/hr 1X ONCE IV Last administered on at 17:18; Start 12/12/18 at 15:45; Stop 12/12/18 at 16:44; Status DC Fentanyl Citrate (Fentanyl 2ml Vial) 50 mcg 1X ONCE IV Last administered on 12/12/18at 18:24; Start 12/12/18 at 18:15; Stop 12/12/18 at 18:16; Status DC Calcium Gluconate (Calcium Gluconate) 1,000 mg 1X ONCE IVP ; Start 12/12/18 at 18:30; Stop 12/12/18 at 18:31; Status UNV Magnesium Sulfate 50 ml @ 25 mls/hr 1X ONCE IV ; Start 12/12/18 at 18:30; Stop 12/12/18 at 20:29; Status DC Potassium Chloride/Water 100 ml @ 100 mls/hr Q1H IV Last administered on at 21:08; Start 12/12/18 at 18:30; Stop 12/12/18 at 22:29; Status DC Potassium Chloride (Klor-Con) 40 meq 1X ONCE PO ; Start 12/12/18 at 18:30; Stop 12/12/18 at 18:36; Status DC Pantoprazole Sodium 80 mg/ Sodium Chloride 100 ml @ 10 mls/hr Q10H IV Last administered on 12/14/18at 06:07; Start 12/12/18 at 18:30; Stop 12/14/18 at 07:29 ; Status DC Pantoprazole Sodium (PROTONIX VIAL for IV PUSH) 80 mg 1X ONCE IVP Last administered on 12/12/18at 21:10; Start 12/12/18 at 18:30; Stop 12/12/18 at 18:33; Status DC Calcium Gluconate 1000 mg/Dextrose 110 ml @ 220 mls/hr 1X ONCE IV Last administered on 12/12/18at 21:07; Start 12/12/18 at 19:00; Stop 12/12/18 at 19:29; Status DC Ondansetron HCl (Zofran) 4 mg PRN Q8HRS PRN IV NAUSEA/VOMITING; Start 12/12/18 at 19:45; Stop 12/13/18 at 19:44; Status DC Morphine Sulfate (Morphine Sulfate) 4 mg PRN Q2HR PRN IV PAIN; Start 12/12/18 at 20:00; Stop 12/13/18 at 19:59; Status DC Sodium Chloride 1,000 ml @ 125 mls/hr 1X ONCE IV Last administered on at 22:03; Start 12/12/18 at 20:00; Stop 12/13/18 at 19:23; Status DC Lidocaine HCl (Lidocaine 1% 20ml Vial) 20 ml STK-MED ONCE .ROUTE ; Start at 20:37; Stop 12/12/18 at 20:38; Status DC Piperacillin Sod/ Tazobactam Sod (Zosyn Per Pharmacy) 1 each PRN DAILY PRN MC SEE COMMENTS; Start 12/12/18 at 21:30 Piperacillin Sod/ Tazobactam Sod 3.375 gm/Sodium Chloride 50 ml @ 100 mls/hr Q6HRS IV Last administered on 12/14/18at 07:13; Start 12/12/18 at 22:00 Bicalutamide (Casodex) 50 mg DAILY PO Last administered on 12/13/18 13:21; Start 12/13/18 at 12:00 Ferrous Sulfate (Feosol) 325 mg BIDWMEALS PO Last administered on 12/13/18at 17: 29; Start 12/13/18 at 17:00 Acetaminophen/ Hydrocodone Bitart (Lortab 5/325) 1 tab PRN Q6HRS PRN PO PAIN Last administered on 12/13/18at 13:22; Start 12/13/18 at 11:45 Sertraline HCl (Zoloft) 50 mg DAILY PO Last administered on 12/13/18 13:21; Start 12/13/18 at 12:00 Pantoprazole Sodium (Protonix) 40 mg DAILYAC PO ; Start 12/14/18 at 07:30 Sucralfate (Carafate) 1 gm QIDACHS PO ; Start 12/13/18 at 12:00; Stop 12/13/18 at 13:43; Status DC Sucralfate (Carafate) 1 gm QIDACHS PO Last administered on 12/13/18at 20:20; Start 12/13/18 at 16:30 Sodium Chloride 1,000 ml @ 25 mls/hr CONT IV ; Start 12/13/18 at 19:30; Status UNV Sodium Chloride 1,000 ml @ 25 mls/hr Q24H IV Last administered on 12/13/18at 20: 20; Start 12/13/18 at 19:30 Fentanyl Citrate (Fentanyl 2ml Vial) 25 mcg PRN Q5MIN PRN IV MILD PAIN; Start 12/14/18 at 08:30; Stop 12/14/18 at 18:00 Fentanyl Citrate (Fentanyl 2ml Vial) 50 mcg PRN Q5MIN PRN IV MODERATE TO SEVERE PAIN; Start 12/14/18 at 08:30; Stop 12/14/18 at 18:00 Morphine Sulfate (Morphine Sulfate) 1 mg PRN Q10MIN PRN IV SEVERE PAIN; Start 12/14/18 at 08:30; Stop 12/14/18 at 18:00 Ringer's Solution 1,000 ml @ 30 mls/hr Q24H IV ; Start 12/14/18 at 08:28; Stop 12/14/18 at 20:27 Lidocaine HCl (Xylocaine-Mpf 1% 2ml Vial) 2 ml PRN 1X PRN ID PRIOR TO IV START ; Start 12/14/18 at 08:30; Stop 12/14/18 at 18:00 Hydromorphone HCl (Dilaudid) 0.5 mg PRN Q10MIN PRN IV SEV PAIN, Second choice; Start 12/14/18 at 08:30; Stop 12/14/18 at 18:00 Prochlorperazine Edisylate (Compazine) 5 mg PACU PRN PRN IV NAUSEA, MRX1; Start 12/14/18 at 08:30; Stop 12/14/18 at 18:00 Propofol 20 ml @ As Directed STK-MED ONCE IV ; Start 12/14/18 at 08:36; Stop 07/25 at 08:37; Status DC Active Scripts Active Levaquin (Levofloxacin) 750 Mg Tablet 1 Tab PO DAILY [place] 5-325 Tablet (Acetaminophen/Hydrocodone Bitart) 1 Each Tablet 1 Tab PO Q6HRS PRN Cyclobenzaprine Hcl 10 Mg Tablet 1 Tab PO TID Reported Carafate (Sucralfate) 1 Gm/10 Ml Oral.susp 1 Gm PO QIDACHS Protonix (Pantoprazole Sodium) 20 Mg Tablet.dr 40 Mg PO DAILY Hydrocodone-Apap 7.5-325 (Hydrocodone Bit/Acetaminophen) 1 Each Tablet 7.5 Mg PO PRN Q4-6HRS PRN Ferrous Sulfate 325 Mg Tablet 325 Mg PO BIDWMEALS Casodex (Bicalutamide) 50 Mg Tablet 1 Tab PO DAILY Zoloft (Sertraline Hcl) 50 Mg Tablet 1 Tab PO DAILY Plavix (Clopidogrel Bisulfate) 75 Mg Tablet 1 Tab PO DAILY Allergies Allergies: Coded Allergies: No Known Drug Allergies (Unverified , 12/16/17) ROS General: No: Chills, Night Sweats, Fatigue, Malaise, Appetite, Other PSYCHOLOGICAL ROS: No: Anxiety, Behavioral Disorder, Concentration difficultie , Decreased libido, Depression, Disorientation, Hallucinations, Hostility, Irritablity, Memory difficulties, Mood Swings, Obsessive thoughts, Physical abuse, Sexual abuse, Sleep disturbances, Suicidal ideation, Other Eyes: No Blurry vision, No Decreased vision, No Double vision, No Dry eyes, No Excessive tearing, No Eye Pain, No Itchy Eyes, No Loss of vision, No Photophobia , No Scotomata, No Uses contacts, No Uses glasses, No Other HEENT: No: Heacaches, Visual Changes, Hearing change, Nasal congestion, Nasal discharge, Oral lesions, Sinus pain, Sore Throat, Epistaxis, Sneezing, Snoring, Tinnitus, Vertigo, Vocal changes, Other ALLERGY AND IMMUNOLOGY: No: Hives, Insect Bite Sensitivity, Itchy/Watery Eyes, Nasal Congestion, Post Nasal Drip, Seasonal Allergies, Other Hematological and Lymphatic: No: Bleeding Problems, Blood Clots, Blood Transfusions, Brusing, Night Sweats, Pallor, Swollen Lymph Nodes, Other Respiratory: No: Cough, Hemoptysis, Orthopnea, Pleuritic Pain, Shortness of breath, SOB with excertion, Sputum Changes, Stridor, Tachypnea, Wheezing, Other Cardiovascular: No Chest Pain, No Palpitations, No Orthopnea, No Paroxysmal Noc. Dyspnea, No Edema, No Lt Headedness, No Other Gastrointestinal: Yes Other (loss of appetite, black stools) Genitourinary: No Dysuria, No Frequency, No Incontinence, No Hematuria, No Retention, No Discharge, No Urgency, No Pain, No Flank Pain, No Other, No , No , No , No , No , No , No Musculoskeletal: Yes Joint Pain Neurological: Yes Gait Disturbance Skin: No Dry Skin, No Eczema, No Hair Changes, No Lumps, No Mole Changes, No Mottling, No Nail Changes, No Pruritus, No Rash, No Skin Lesion Changes, No Other, No Acne Physical Exam General: Alert, Oriented X3 HEENT: Atraumatic, EOMI Lungs: Other (respirations aren't labored with symmetric chest rise) Heart: Regular rate Abdomen: Soft, No tenderness Extremities: No edema Skin: No rashes Neuro: Normal speech, Other (left-sided hemiparesis, minimal dorsiflexion and plantarflexion is present in his ankle. He is able to actively extend his knee. He is able to flex his hip a little bit as well.) Psych/Mental Status: Mental status NL, Mood NL MUSCULOSKELETAL: Other (healed posterolateral incision over the left hip region. He does have some tenderness present with deep palpation but does not grimace or withdrawal.) Vitals VITALS Vital Signs Date Time Temp Pulse Resp B/P (MAP) Pulse Ox O2 Delivery O2 Flow Rate FiO2 12/14/18 08:46 Room Air 12/14/18 08:17 99.3 68 16 98 99.3 12/14/18 07:42 102/58 (73) Labs Labs Laboratory Tests Test 12/12/18 16:55 12/12/18 19:20 12/12/18 19:38 12/12/18 21:00 Stool Occult Blood Positive (NEG) O2 Saturation 96 % (92-99) Arterial Blood pH 7.36 (7.35-7.45) Arterial Blood pCO2 at Patient Temp 27 mmHg (35-46) Arterial Blood pO2 at Patient Temp 86 mmHg (65-108) Arterial Blood HCO3 15 mmol/L (21-28) Arterial Blood Base Excess -9 mmol/L (-3-3) FiO2 21 Urine Collection Type Unknown Urine Color Yellow Urine Clarity Clear Urine pH 6.0 Urine Specific Cord 1.020 Urine Protein Negative mg/dL (NEG-TRACE) Urine Glucose (UA) Negative mg/dL (NEG) Urine Ketones (Stick) Negative mg/dL (NEG) Urine Blood Trace (NEG) Urine Nitrite Negative (NEG) Urine Bilirubin Negative (NEG) Urine Urobilinogen Dipstick 0.2 mg/dL (0.2 mg/dL) Urine Leukocyte Esterase Negative (NEG) Urine RBC 1-2 /HPF (0-2) Urine WBC 1-4 /HPF (0-4) Urine Bacteria 0 /HPF (0-FEW) Urine Hyaline Casts Many /HPF Urine Waxy Casts Occasional /HPF Urine Mucus Marked /LPF Urine Opiates Screen Pos (NEG) Urine Methadone Screen Neg (NEG) Urine Barbiturates Neg (NEG) Urine Phencyclidine Screen Neg (NEG) Urine Amphetamine/Methamphetamine Neg (NEG) Urine Benzodiazepines Screen Neg (NEG) Urine Cocaine Screen Neg (NEG) Urine Cannabinoids Screen Neg (NEG) Urine Ethyl Alcohol Neg (NEG) White Blood Count 12.5 x10^3/uL (4.0-11.0) Red Blood Count 3.32 x10^6/uL (4.30-5.70) Hemoglobin 9.8 g/dL (13.0-17.5) Hematocrit 30.2 % (39.0-53.0) Mean Corpuscular Volume 91 fL (79-100) Mean Corpuscular Hemoglobin 30 pg (25-35) Mean Corpuscular Hemoglobin Concent 33 g/dL (31-37) Red Cell Distribution Width 15.7 % (11.5-14.5) Platelet Count 340 x10^3/uL (140-400) Neutrophils (%) (Auto) 72 % (31-73) Lymphocytes (%) (Auto) 15 % (24-48) Monocytes (%) (Auto) 11 % (0-9) Eosinophils (%) (Auto) 1 % (0-3) Basophils (%) (Auto) 0 % (0-3) Neutrophils # (Auto) 9.0 x10^3uL (1.8-7.7) Lymphocytes # (Auto) 1.9 x10^3/uL (1.0-4.8) Monocytes # (Auto) 1.4 x10^3/uL (0.0-1.1) Eosinophils # (Auto) 0.1 x10^3/uL (0.0-0.7) Basophils # (Auto) 0.0 x10^3/uL (0.0-0.2) Sodium Level 143 mmol/L (136-145) Potassium Level 4.5 mmol/L (3.5-5.1) Chloride Level 107 mmol/L (98-107) Carbon Dioxide Level 18 mmol/L (21-32) Anion Gap 18 (6-14) Blood Urea Nitrogen 85 mg/dL (8-26) Creatinine 1.7 mg/dL (0.7-1.3) Estimated GFR (Cockcroft-Gault) 49.5 BUN/Creatinine Ratio 50 (6-20) Glucose Level 103 mg/dL (70-99) Calcium Level 8.7 mg/dL (8.5-10.1) Magnesium Level 2.8 mg/dL (1.8-2.4) Total Bilirubin 0.5 mg/dL (0.2-1.0) Aspartate Amino Transf (AST/SGOT) 63 U/L (15-37) Alanine Aminotransferase (ALT/SGPT) 22 U/L (16-63) Alkaline Phosphatase 58 U/L (46-116) Creatine Kinase 5937 U/L (39-308) Creatine Kinase MB (Mass) 6.6 ng/mL (0.0-3.6) Creatine Kinase MB Relative Index 0.1 % (0-4) Troponin I Quantitative < 0.017 ng/mL (0.000-0.055) BP-Nax-S-Type Natriuretic Peptide 196 pg/mL (0-124) Total Protein 7.9 g/dL (6.4-8.2) Albumin 3.2 g/dL (3.4-5.0) Albumin/Globulin Ratio 0.7 (1.0-1.7) Lipase 171 U/L (73-393) Thyroid Stimulating Hormone (TSH) 0.890 uIU/mL (0.358-3.74) Test 12/12/18 21:45 12/12/18 22:40 12/13/18 06:10 12/13/18 20:00 Nasal Screen MRSA (PCR) Negative (Negative) Prothrombin Time 15.5 SEC (11.7-14.0) Prothromb Time International Ratio 1.3 (0.8-1.1) Ionized Calcium 1.23 mmol/L (1.13-1.32) White Blood Count 10.0 x10^3/uL (4.0-11.0) Red Blood Count 3.19 x10^6/uL (4.30-5.70) Hemoglobin 9.6 g/dL (13.0-17.5) 8.8 g/dL (13.0-17.5) Hematocrit 29.3 % (39.0-53.0) Mean Corpuscular Volume 92 fL (79-100) Mean Corpuscular Hemoglobin 30 pg (25-35) Mean Corpuscular Hemoglobin Concent 33 g/dL (31-37) Red Cell Distribution Width 15.8 % (11.5-14.5) Platelet Count 289 x10^3/uL (140-400) Neutrophils (%) (Auto) 75 % (31-73) Lymphocytes (%) (Auto) 13 % (24-48) Monocytes (%) (Auto) 11 % (0-9) Eosinophils (%) (Auto) 2 % (0-3) Basophils (%) (Auto) 0 % (0-3) Neutrophils # (Auto) 7.5 x10^3uL (1.8-7.7) Lymphocytes # (Auto) 1.3 x10^3/uL (1.0-4.8) Monocytes # (Auto) 1.0 x10^3/uL (0.0-1.1) Eosinophils # (Auto) 0.1 x10^3/uL (0.0-0.7) Basophils # (Auto) 0.0 x10^3/uL (0.0-0.2) Sodium Level 143 mmol/L (136-145) 142 mmol/L (136-145) Potassium Level 4.5 mmol/L (3.5-5.1) 4.3 mmol/L (3.5-5.1) Chloride Level 112 mmol/L (98-107) 109 mmol/L (98-107) Carbon Dioxide Level 18 mmol/L (21-32) 20 mmol/L (21-32) Anion Gap 13 (6-14) 13 (6-14) Blood Urea Nitrogen 67 mg/dL (8-26) 44 mg/dL (8-26) Creatinine 1.4 mg/dL (0.7-1.3) 1.3 mg/dL (0.7-1.3) Estimated GFR (Cockcroft-Gault) 61.9 67.5 Glucose Level 105 mg/dL (70-99) 88 mg/dL (70-99) Calcium Level 8.8 mg/dL (8.5-10.1) 8.2 mg/dL (8.5-10.1) BUN/Creatinine Ratio 34 (6-20) Total Bilirubin 0.5 mg/dL (0.2-1.0) Aspartate Amino Transf (AST/SGOT) 51 U/L (15-37) Alanine Aminotransferase (ALT/SGPT) 18 U/L (16-63) Alkaline Phosphatase 64 U/L (46-116) Total Protein 7.1 g/dL (6.4-8.2) Albumin 2.5 g/dL (3.4-5.0) Albumin/Globulin Ratio 0.5 (1.0-1.7) Test 12/14/18 06:12 White Blood Count 8.8 x10^3/uL (4.0-11.0) Red Blood Count 2.81 x10^6/uL (4.30-5.70) Hemoglobin 8.4 g/dL (13.0-17.5) Hematocrit 25.8 % (39.0-53.0) Mean Corpuscular Volume 92 fL (79-100) Mean Corpuscular Hemoglobin 30 pg (25-35) Mean Corpuscular Hemoglobin Concent 33 g/dL (31-37) Red Cell Distribution Width 15.7 % (11.5-14.5) Platelet Count 238 x10^3/uL (140-400) Neutrophils (%) (Auto) 64 % (31-73) Lymphocytes (%) (Auto) 21 % (24-48) Monocytes (%) (Auto) 11 % (0-9) Eosinophils (%) (Auto) 3 % (0-3) Basophils (%) (Auto) 1 % (0-3) Neutrophils # (Auto) 5.7 x10^3uL (1.8-7.7) Lymphocytes # (Auto) 1.8 x10^3/uL (1.0-4.8) Monocytes # (Auto) 1.0 x10^3/uL (0.0-1.1) Eosinophils # (Auto) 0.3 x10^3/uL (0.0-0.7) Basophils # (Auto) 0.0 x10^3/uL (0.0-0.2) Sodium Level 142 mmol/L (136-145) Potassium Level 4.2 mmol/L (3.5-5.1) Chloride Level 109 mmol/L (98-107) Carbon Dioxide Level 20 mmol/L (21-32) Anion Gap 13 (6-14) Blood Urea Nitrogen 32 mg/dL (8-26) Creatinine 1.1 mg/dL (0.7-1.3) Estimated GFR (Cockcroft-Gault) 81.8 Glucose Level 89 mg/dL (70-99) Calcium Level 8.4 mg/dL (8.5-10.1) Laboratory Tests Test 12/13/18 20:00 12/14/18 06:12 Hemoglobin 8.8 g/dL (13.0-17.5) 8.4 g/dL (13.0-17.5) Sodium Level 142 mmol/L (136-145) 142 mmol/L (136-145) Potassium Level 4.3 mmol/L (3.5-5.1) 4.2 mmol/L (3.5-5.1) Chloride Level 109 mmol/L (98-107) 109 mmol/L (98-107) Carbon Dioxide Level 20 mmol/L (21-32) 20 mmol/L (21-32) Anion Gap 13 (6-14) 13 (6-14) Blood Urea Nitrogen 44 mg/dL (8-26) 32 mg/dL (8-26) Creatinine 1.3 mg/dL (0.7-1.3) 1.1 mg/dL (0.7-1.3) Estimated GFR (Cockcroft-Gault) 67.5 81.8 BUN/Creatinine Ratio 34 (6-20) Glucose Level 88 mg/dL (70-99) 89 mg/dL (70-99) Calcium Level 8.2 mg/dL (8.5-10.1) 8.4 mg/dL (8.5-10.1) Total Bilirubin 0.5 mg/dL (0.2-1.0) Aspartate Amino Transf (AST/SGOT) 51 U/L (15-37) Alanine Aminotransferase (ALT/SGPT) 18 U/L (16-63) Alkaline Phosphatase 64 U/L (46-116) Total Protein 7.1 g/dL (6.4-8.2) Albumin 2.5 g/dL (3.4-5.0) Albumin/Globulin Ratio 0.5 (1.0-1.7) White Blood Count 8.8 x10^3/uL (4.0-11.0) Red Blood Count 2.81 x10^6/uL (4.30-5.70) Hematocrit 25.8 % (39.0-53.0) Mean Corpuscular Volume 92 fL (79-100) Mean Corpuscular Hemoglobin 30 pg (25-35) Mean Corpuscular Hemoglobin Concent 33 g/dL (31-37) Red Cell Distribution Width 15.7 % (11.5-14.5) Platelet Count 238 x10^3/uL (140-400) Neutrophils (%) (Auto) 64 % (31-73) Lymphocytes (%) (Auto) 21 % (24-48) Monocytes (%) (Auto) 11 % (0-9) Eosinophils (%) (Auto) 3 % (0-3) Basophils (%) (Auto) 1 % (0-3) Neutrophils # (Auto) 5.7 x10^3uL (1.8-7.7) Lymphocytes # (Auto) 1.8 x10^3/uL (1.0-4.8) Monocytes # (Auto) 1.0 x10^3/uL (0.0-1.1) Eosinophils # (Auto) 0.3 x10^3/uL (0.0-0.7) Basophils # (Auto) 0.0 x10^3/uL (0.0-0.2) Images Images X-rays and CAT scan were reviewed. Minimally displaced greater trochanteric fracture around a left hip hemiarthroplasty Assessment/Plan Assessment/Plan Given the timeframe from this fracture, and the patient's overall condition, I do not anticipate any operative intervention. I think we will follow this and clinically should follow up with me in 2 weeks. He can ambulate with a walker and be mobilized to a chair as needed. SHAYNA BLUE II, MD Dec 14, 2018 08:59
--- NOTE | 2018-12-14 09:12 | PDOC4 ---
PROCEDURE Procedure EGD with bx Anemia, heme + stool, history of PUD and prior H pylori anesthesia with propofol Findings Esophagus- normal Stomach antral gastritis- moderate- without ulceration and no bleeding (bx) Duodenum- normal Plan- PPI CLD monitor- if further bleeding may need to consider colonoscopy JESSICA VICKERS MD Dec 14, 2018 09:12
[2018-12-14] MEDS: PANTOPRAZOLE 40 MG TABLET.DR. PO SCH (10:30)
[2018-12-14] MEDS: FERROUS SULFATE 325 MG TABLET. PO SCH ×2 (10:30→18:30)
[2018-12-14] MEDS: SERTRALINE 50 MG TABLET. PO SCH (10:30)
[2018-12-14] MEDS: BICALUTAMIDE 50 MG TABLET PO SCH (10:37)
[2018-12-14] MEDS: HYDROcodone/APAP 5/325MG 1 TAB TABLET PO PRN ×2 (10:41→21:08)
[2018-12-14 11:39] VITALS: BP 129/71
--- NOTE | 2018-12-14 11:53 | PDOC ---
SUBJECTIVE ROS Stable OBJECTIVE Vital Signs Vital Signs Date Time Temp Pulse Resp B/P (MAP) Pulse Ox O2 Delivery O2 Flow Rate FiO2 12/14/18 11:39 97.6 72 18 129/71 (90) 99 Room Air 97.6 12/14/18 09:03 2 I & 0 Intake and Output 12/14/18 07:00 Intake Total 1030 ml Output Total 1475 ml Balance -445 ml Intake Oral 1030 ml Output Urine Total 1475 ml PHYSICAL EXAM Physical Exam GEN: Propped up in bed,NAD HEEN: OM moist NECK: supple CVS: RRR RESP: CTA Bilat, Non labored GI: BS + ve, NO Bruit, Non Tender, : No CVA tenderness, No Suprapubic Tenderness, Calero + Neuro- AXOX3 Skin No rash DIAGNOSIS/ASSESSMENT Assessment & Plan SWAPNA- Pre-renal / Poor PO intake Improved renal function Mild Rhabdo- CPK elevated E-Lytes and acid base normal , Good UOP UA- unremarkable except Hyaline cast Hypocalcemia- Corrected Ca Normal Minimally displaced greater trochanteric fracture around a left hip hemiarthroplasty Ortho following Melena, heme + stool anemia, GI On case Anemia- > 7 No indication for Transfusion Will sign off COMMENT/RELEVANT DATA Meds Current Medications Medications (Trade) Dose Ordered Sig/Popeye Start Time Stop Time Status Last Admin Dose Admin Acetaminophen/ Hydrocodone Bitart (Lortab 5/325) 1 tab PRN Q6HRS PRN 12/13/18 11:45 12/14/18 10:41 1 TAB Bicalutamide (Casodex) 50 mg DAILY 12/13/18 12:00 12/14/18 10:37 50 MG Calcium Gluconate (Calcium Gluconate) 1,000 mg 1X ONCE 12/12/18 18:30 12/12/18 18:31 UNV Calcium Gluconate 1000 mg/Dextrose 110 ml @ 220 mls/hr 1X ONCE 12/12/18 19:00 12/12/18 19:29 DC 12/12/18 21:07 220 MLS/HR Fentanyl Citrate (Fentanyl 2ml Vial) 50 mcg PRN Q5MIN PRN 12/14/18 08:30 12/14/18 18:00 Ferrous Sulfate (Feosol) 325 mg BIDWMEALS 12/13/18 17:00 12/14/18 10:30 325 MG Hydromorphone HCl (Dilaudid) 0.5 mg PRN Q10MIN PRN 12/14/18 08:30 12/14/18 18:00 Lidocaine HCl (Lidocaine 1% 20ml Vial) 20 ml STK-MED ONCE 12/12/18 20:37 12/12/18 20:38 DC Lidocaine HCl (Xylocaine-Mpf 1% 2ml Vial) 2 ml PRN 1X PRN 12/14/18 08:30 12/14/18 18:00 Magnesium Sulfate 50 ml @ 25 mls/hr 1X ONCE 12/12/18 18:30 12/12/18 20:29 DC Morphine Sulfate (Morphine Sulfate) 1 mg PRN Q10MIN PRN 12/14/18 08:30 12/14/18 18:00 Ondansetron HCl (Zofran) 4 mg PRN Q8HRS PRN 12/12/18 19:45 12/13/18 19:44 DC Pantoprazole Sodium (PROTONIX VIAL for IV PUSH) 80 mg 1X ONCE 12/12/18 18:30 12/12/18 18:33 DC 12/12/18 21:10 80 MG Pantoprazole Sodium (Protonix) 40 mg DAILYAC 12/14/18 07:30 12/14/18 10:30 40 MG Pantoprazole Sodium 80 mg/ Sodium Chloride 100 ml @ 10 mls/hr Q10H 12/12/18 18:30 12/14/18 07:29 DC 12/14/18 06:07 10 MLS/HR Piperacillin Sod/ Tazobactam Sod (Zosyn Per Pharmacy) 1 each PRN DAILY PRN 12/12/18 21:30 Piperacillin Sod/ Tazobactam Sod 3.375 gm/Sodium Chloride 50 ml @ 100 mls/hr Q6HRS 12/12/18 22:00 12/14/18 07:13 100 MLS/HR Potassium Chloride/Water 100 ml @ 100 mls/hr Q1H 12/12/18 18:30 12/12/18 22:29 DC 12/12/18 21:08 100 MLS/HR Potassium Chloride (Klor-Con) 40 meq 1X ONCE 12/12/18 18:30 12/12/18 18:36 DC Prochlorperazine Edisylate (Compazine) 5 mg PACU PRN PRN 12/14/18 08:30 12/14/18 18:00 Propofol 20 ml @ As Directed STK-MED ONCE 12/14/18 08:36 12/14/18 08:37 DC Ringer's Solution 1,000 ml @ 30 mls/hr Q24H 12/14/18 08:28 12/14/18 20:27 Sertraline HCl (Zoloft) 50 mg DAILY 12/13/18 12:00 12/14/18 10:30 50 MG Sodium Chloride 1,000 ml @ 25 mls/hr Q24H 12/13/18 19:30 12/13/18 20:20 25 MLS/HR Sucralfate (Carafate) 1 gm QIDACHS 12/13/18 16:30 12/14/18 11:30 1 GM Lab Laboratory Tests Test 12/13/18 20:00 12/14/18 06:12 Hemoglobin 8.8 g/dL (13.0-17.5) 8.4 g/dL (13.0-17.5) Sodium Level 142 mmol/L (136-145) 142 mmol/L (136-145) Potassium Level 4.3 mmol/L (3.5-5.1) 4.2 mmol/L (3.5-5.1) Chloride Level 109 mmol/L (98-107) 109 mmol/L (98-107) Carbon Dioxide Level 20 mmol/L (21-32) 20 mmol/L (21-32) Anion Gap 13 (6-14) 13 (6-14) Blood Urea Nitrogen 44 mg/dL (8-26) 32 mg/dL (8-26) Creatinine 1.3 mg/dL (0.7-1.3) 1.1 mg/dL (0.7-1.3) Estimated GFR (Cockcroft-Gault) 67.5 81.8 BUN/Creatinine Ratio 34 (6-20) Glucose Level 88 mg/dL (70-99) 89 mg/dL (70-99) Calcium Level 8.2 mg/dL (8.5-10.1) 8.4 mg/dL (8.5-10.1) Total Bilirubin 0.5 mg/dL (0.2-1.0) Aspartate Amino Transf (AST/SGOT) 51 U/L (15-37) Alanine Aminotransferase (ALT/SGPT) 18 U/L (16-63) Alkaline Phosphatase 64 U/L (46-116) Total Protein 7.1 g/dL (6.4-8.2) Albumin 2.5 g/dL (3.4-5.0) Albumin/Globulin Ratio 0.5 (1.0-1.7) White Blood Count 8.8 x10^3/uL (4.0-11.0) Red Blood Count 2.81 x10^6/uL (4.30-5.70) Hematocrit 25.8 % (39.0-53.0) Mean Corpuscular Volume 92 fL (79-100) Mean Corpuscular Hemoglobin 30 pg (25-35) Mean Corpuscular Hemoglobin Concent 33 g/dL (31-37) Red Cell Distribution Width 15.7 % (11.5-14.5) Platelet Count 238 x10^3/uL (140-400) Neutrophils (%) (Auto) 64 % (31-73) Lymphocytes (%) (Auto) 21 % (24-48) Monocytes (%) (Auto) 11 % (0-9) Eosinophils (%) (Auto) 3 % (0-3) Basophils (%) (Auto) 1 % (0-3) Neutrophils # (Auto) 5.7 x10^3uL (1.8-7.7) Lymphocytes # (Auto) 1.8 x10^3/uL (1.0-4.8) Monocytes # (Auto) 1.0 x10^3/uL (0.0-1.1) Eosinophils # (Auto) 0.3 x10^3/uL (0.0-0.7) Basophils # (Auto) 0.0 x10^3/uL (0.0-0.2) Results All relevant outside records, renal labs, imaging studies, telemetry/EKG's were reviewed. RUPESH SANDERS MD Dec 14, 2018 11:53
--- NOTE | 2018-12-14 12:01 | CONS ---
DATE OF CONSULTATION: 12/13/2018 PRIMARY CARE PHYSICIAN: Kennedy Tabor MD. CHIEF COMPLAINT: Heme-positive stools, melena and anemia. HISTORY OF PRESENT ILLNESS: This is a 63-year-old gentleman who we have seen in the past. He has had a history of duodenal ulcer with bleeding several years ago. He also had an upper endoscopy last year, confirming healing of the previous ulcer. He did have a Helicobacter associated with that ulcer back in 2016, but was treated. He also had a colonoscopy in 2014 that showed internal hemorrhoids. The prep was poor, but no other lesions were appreciated. He presents now with weakness, unsure what is happening, had run out of his medications and with some pain, particularly in his hip region as far as we can tell. He originally in the ER, had a hemoglobin reported as 3, but when it was repeated, it was actually 9. Some of the electrolytes are also distinctly abnormal initially as well, but were much more normal with repeating those labs. He now is a little more lucid today and is complaining of some discomfort. He is also weak and has fallen recently, and it is possible that he may have a hip fracture based on his x-rays. He denies any dysphagia. He denies vomiting, but does have black stools. He has had a poor appetite and ran out of his medications. PAST MEDICAL HISTORY: 1. Previous CVA with left-sided weakness. 2. Hyperlipidemia. 3. Hypertension. 4. Duodenal ulcer with Helicobacter with bleeding in the past. 5. Prostate cancer. 6. Depression. 7. Rib fractures. 8. Hip fracture. MEDICATIONS: See the list. ALLERGIES: None are reported. SOCIAL HISTORY: He is a smoker, does not drink, does not use illicit drugs. He lives at home apparently alone in spite of his limited capabilities. FAMILY HISTORY: Noncontributory. REVIEW OF SYSTEMS: CONSTITUTIONAL: He is weak. No fever or chills. HEENT: No headache or blurred vision. PULMONARY: No shortness of breath. CARDIOVASCULAR: No chest pain. GENITOURINARY: No change in urinary pattern. NEUROLOGIC: Weakness on the left side is chronic, but generalized weakness is new SKIN: No rashes, pruritus or jaundice. MUSCULOSKELETAL: There is some left hip, left-sided hip pain that may correspond with a fracture on the x-ray. PHYSICAL EXAMINATION: GENERAL: He is more awake and alert, but weak. VITAL SIGNS: Blood pressure is 114/69, pulse 75, respirations 16. EYES: He is anicteric. NECK: Supple. CHEST: Clear. HEART: Regular rate and rhythm. ABDOMEN: Bowel sounds present, soft, nontender, no organomegaly or masses. RECTAL: Deferred. EXTREMITIES: He has a brace on his left leg consistent with his prior stroke. He has some weakness and tenderness in the left upper leg as he reported. LABORATORY DATA: Initially, his hemoglobin was reported as 3, but this was spurious. It was repeated and was 9.8, this morning 9.6. White blood cell count 12,500, platelet count 340,000, MCV of 91. His electrolytes show potassium of 4.5, CO2 of 18, BUN of 63, creatinine 1.4. His CPK is 5937. His BNP is 196. Troponin is negative. TSH is normal. Urine drug screen positive for opiates, but otherwise negative. Stool was Hemoccult positive. X-rays of abdomen series shows stool in the colon. Hip films show a greater trochanter left hip fracture. Chest x-ray shows some old rib fractures. ASSESSMENT: Anemia with history of melena and heme positive stool. He has a history of peptic ulcer disease and apparently is not taking his medicines appropriately, although we do not know the details of that history. It is possible that he may have developed gastritis or peptic disease based on his prior history. Initiation of Protonix and Carafate empirically as appropriate. Endoscopy may be appropriate as well, but will be deferred until we determine the plan on his hip fracture and other medical issues. He did have a colonoscopy back in 2014, so we will not pursue that at this time. I appreciate the opportunity and we will follow with you. JESSICA VICKERS MD DR: JOSE JUAN/gaurav JOB#: [id number] / [id number]
[2018-12-14 15:00] VITALS: BP 116/68
[2018-12-14 19:15] VITALS: BP 116/60
[2018-12-14] MEDS: LACTOBACILLUS RHAMNOSUS GG 1 CAPSULE. PO SCH (21:04)
[2018-12-14] MEDS: IV NORMAL SALINE 1000ML BAG 1,000 ML IV SCH (21:09)
[2018-12-14 23:42] VITALS: BP 105/63
[2018-12-15] MEDS: PIPERACILLIN/TAZOBACTAM 3.375 GM in IV NORMAL SALINE 50ML 50 ML IV SCH ×5 (00:23→23:58)
[2018-12-15 03:09] VITALS: BP 94/58
[2018-12-15] MEDS ORDERED: BACITRACIN 50,000 UNIT in IV NORMAL SALINE 1000ML BAG 1,000 ML IRR ONE (06:00)
--- NOTE | 2018-12-15 06:00 | NUR ---
damon catheter discontinued at 0545 12/15/18. will continue to monitor pt.
[2018-12-15 06:01] LABS: BASO % 0 % (0-3); EOS # 0.4 x10^3/uL (0.0-0.7); EOS % 4 % (0-3); HEMATOCRIT 23.4 % (39.0-53.0); HEMOGLOBIN 7.8 g/dL (13.0-17.5); LYMPH % 20 % (24-48); MEAN CORPUSCULAR HEMOGLOBIN 31 pg (25-35); MEAN CORPUSCULAR HGB CONC 33 g/dL (31-37); MEAN CORPUSCULAR VOLUME 92 fL (79-100); MONO % 10 % (0-9); NEUT # 6.6 x10^3uL (1.8-7.7); NEUT % 66 % (31-73); PLATELET COUNT 221 x10^3/uL (140-400); RED BLOOD COUNT 2.53 x10^6/uL (4.30-5.70); RED CELL DISTRIBUTION WIDTH 15.6 % (11.5-14.5)
[2018-12-15 06:39] LABS: CREATININE 0.9 mg/dL (0.7-1.3); GFR 103.1; POTASSIUM 3.9 mmol/L (3.5-5.1)
--- NOTE | 2018-12-15 06:41 | PN ---
DATE: 12/14/2018 LOCATION: Room 671. SUBJECTIVE: The patient is awake, feels overall much better. He is having some left hip pain. OBJECTIVE: VITAL SIGNS: Stable. He is afebrile. He is awake, alert. He is on room air O2. BUN is down to 32 today, creatinine down to 1.1. Hemoglobin has dipped to 8.4 and we will continue to follow. There is no evidence of any further GI bleeding. Again, imaging showed a left greater trochanteric fracture with minimal displacement. Ortho has seen him and feels we should just do watchful waiting at this point in time. EGD yesterday shows antral gastritis, moderate without ulceration, no bleeding with plans on colonoscopy if further bleeding during the stay. ASSESSMENT: 1. Gastrointestinal bleed with resultant anemia. 2. Weakness with falls prior to admission, probably due to combination of gastrointestinal bleed and dehydration. 3. Dehydration, improving. 4. Status post cerebrovascular accident with left hemiparesis. 5. Left greater trochanteric fracture. 6. Rhabdomyolysis. PLAN: Continue present care. Repeat labs in the morning. Gastroenterology help appreciated. Therapy will be added to see whether he needs long term at discharge. UCHE HINSON MD DR: TOMASA/gaurav JOB#: [id number] / [id number]
[2018-12-15 07:00] VITALS: BP 109/63
[2018-12-15] MEDS: SUCRALFATE 1 GM/10 ML ORAL.SUSP. PO SCH ×4 (07:30→21:38)
[2018-12-15] MEDS: SERTRALINE 50 MG TABLET. PO SCH (08:36)
[2018-12-15] MEDS: FERROUS SULFATE 325 MG TABLET. PO SCH ×2 (08:36→17:10)
[2018-12-15] MEDS: HYDROcodone/APAP 5/325MG 1 TAB TABLET PO PRN ×2 (08:36→17:16)
[2018-12-15] MEDS: PANTOPRAZOLE 40 MG TABLET.DR. PO SCH (08:37)
[2018-12-15] MEDS: BICALUTAMIDE 50 MG TABLET PO SCH (08:42)
--- NOTE | 2018-12-15 09:38 | PDOC ---
Subjective: Subjective: Tolerating PO, denies bleeding - has stooled a couple times. Objective: Objective: No bleeding per RN. Vital Signs: Vital Signs Date Time Temp Pulse Resp B/P (MAP) Pulse Ox O2 Delivery O2 Flow Rate FiO2 12/15/18 08:36 96 Room Air 2.0 12/15/18 07:00 98.2 73 18 109/63 (78) 98.2 Labs: Laboratory Tests Test 12/15/18 05:45 White Blood Count 10.0 x10^3/uL Red Blood Count 2.53 x10^6/uL Hemoglobin 7.8 g/dL Hematocrit 23.4 % Mean Corpuscular Volume 92 fL Mean Corpuscular Hemoglobin 31 pg Mean Corpuscular Hemoglobin Concent 33 g/dL Red Cell Distribution Width 15.6 % Platelet Count 221 x10^3/uL Neutrophils (%) (Auto) 66 % Lymphocytes (%) (Auto) 20 % Monocytes (%) (Auto) 10 % Eosinophils (%) (Auto) 4 % Basophils (%) (Auto) 0 % Neutrophils # (Auto) 6.6 x10^3uL Lymphocytes # (Auto) 2.0 x10^3/uL Monocytes # (Auto) 1.0 x10^3/uL Eosinophils # (Auto) 0.4 x10^3/uL Basophils # (Auto) 0.0 x10^3/uL Sodium Level 142 mmol/L Potassium Level 3.9 mmol/L Chloride Level 108 mmol/L Carbon Dioxide Level 21 mmol/L Anion Gap 13 Blood Urea Nitrogen 19 mg/dL Creatinine 0.9 mg/dL Estimated GFR (Cockcroft-Gault) 103.1 Glucose Level 90 mg/dL Calcium Level 8.0 mg/dL BLOOD CULTURE Preliminary NO GROWTH AFTER 2 DAYS Imaging: EGD 12/14 Esophagus- normal Stomach antral gastritis- moderate- without ulceration and no bleeding (bx) Duodenum- normal PE: GEN: NAD, eating pudding LUNGS: CTAB HEART: RRR ABD: S/ND/NT NEURO/PSYCH: A & O 3 A/P: Left hip fracture - conservative management per ortho Melena, anemia, hemoccult positive - EGD unrevealing as above (path pending) -- Colonoscopy tomorrow after prep - d/w KANDY GAGE Dec 15, 2018 09:38
--- NOTE | 2018-12-15 10:29 | NUR ---
SW following pt for anticipated dc needs. Chart reviewed and discussed with RN. Pt lives at home with his brother. PT recommends acute rehab. Spoke with pt at bedside about rehab, options and difference with SNU. Pt reported he has been to SNU in the past and is not interested in doing rehab at a facility. Pt wants to go home with home health services and couldn't remember home health agency he has used in the past. Pt agreeable with [facility], phone: [phone], fax: [phone]. SUDHEER will arrange HH upon dc. Will continue to follow.
[2018-12-15 11:00] VITALS: BP 105/53
[2018-12-15] MEDS: LACTOBACILLUS RHAMNOSUS GG 1 CAPSULE. PO SCH ×2 (11:39→21:38)
[2018-12-15 16:00] VITALS: BP 109/59
[2018-12-15] MEDS ORDERED: MAGNESIUM CITRATE 296 ML SOLUTION. PO ONE (16:00)
[2018-12-15] MEDS ORDERED: BISACODYL 5 MG TABLET.DR. PO PRN (16:30)
[2018-12-15] MEDS ORDERED: POLYETHYLENE GLYCOL 3350 BTL 238 GM POWDER PO ONE (17:00)
[2018-12-15 19:00] VITALS: BP 120/71
[2018-12-15] MEDS: IV NORMAL SALINE 1000ML BAG 1,000 ML IV SCH (19:30)
--- NOTE | 2018-12-15 21:46 | PDOC ---
GENERAL General: vss and afebrile. awake and alert. chest clear, heart regular, and abdomen benign. Hb down further at 7.8. will recheck in am with home when stabilizes. VITAL SIGNS Vital Signs: Vital Signs Date Time Temp Pulse Resp B/P (MAP) Pulse Ox O2 Delivery O2 Flow Rate FiO2 12/15/18 17:16 100 Room Air 2.0 12/15/18 16:00 99.4 100 16 109/59 (76) 99.4 I & O I & O Intake and Output 12/15/18 07:00 Intake Total 1520 ml Output Total 1800 ml Balance -280 ml Intake Oral 1520 ml Output Urine Total 1800 ml ALLERGIES Allergies: Allergies Coded Allergies Type Severity Reaction Last Updated Verified No Known Drug Allergies 12/16/17 No MEDS Medications: Current Medications Medications (Trade) Dose Ordered Sig/Popeye Start Time Stop Time Status Last Admin Dose Admin Acetaminophen/ Hydrocodone Bitart (Lortab 5/325) 1 tab PRN Q6HRS PRN 12/13/18 11:45 12/15/18 17:16 1 TAB Bacitracin 44133 unit/Sodium Chloride 1,000 ml @ 1,000 mls/hr 1X ONCE 12/15/18 06:00 12/15/18 06:59 UNV Bicalutamide (Casodex) 50 mg DAILY 12/13/18 12:00 12/15/18 08:42 50 MG Bisacodyl (Dulcolax Tab) 10 mg PRN DAILY PRN 12/15/18 16:30 Calcium Gluconate (Calcium Gluconate) 1,000 mg 1X ONCE 12/12/18 18:30 12/12/18 18:31 UNV Calcium Gluconate 1000 mg/Dextrose 110 ml @ 220 mls/hr 1X ONCE 12/12/18 19:00 12/12/18 19:29 DC 12/12/18 21:07 220 MLS/HR Cefazolin Sodium/ Dextrose 50 ml @ 100 mls/hr 1X PREOP PRN 12/15/18 06:00 UNV Fentanyl Citrate (Fentanyl 2ml Vial) 50 mcg PRN Q5MIN PRN 12/16/18 07:00 12/17/18 06:59 Ferrous Sulfate (Feosol) 325 mg BIDWMEALS 12/13/18 17:00 12/15/18 17:10 325 MG Hydromorphone HCl (Dilaudid) 0.5 mg PRN Q10MIN PRN 12/16/18 07:00 12/17/18 06:59 Lactobacillus Rhamnosus (Culturelle) 1 cap BID 12/14/18 21:00 12/15/18 21:38 1 CAP Lidocaine HCl (Lidocaine 1% 20ml Vial) 20 ml STK-MED ONCE 12/12/18 20:37 12/12/18 20:38 DC Lidocaine HCl (Xylocaine-Mpf 1% 2ml Vial) 2 ml PRN 1X PRN 12/16/18 07:00 12/17/18 06:59 Magnesium Citrate (Citroma) 296 ml 1X ONCE 12/15/18 16:00 12/15/18 16:01 DC 12/15/18 17:08 296 ML Magnesium Sulfate 50 ml @ 25 mls/hr 1X ONCE 12/12/18 18:30 12/12/18 20:29 DC Morphine Sulfate (Morphine Sulfate) 1 mg PRN Q10MIN PRN 12/16/18 07:00 12/17/18 06:59 Ondansetron HCl (Zofran) 4 mg PRN Q8HRS PRN 12/12/18 19:45 12/13/18 19:44 DC Pantoprazole Sodium (PROTONIX VIAL for IV PUSH) 80 mg 1X ONCE 12/12/18 18:30 12/12/18 18:33 DC 12/12/18 21:10 80 MG Pantoprazole Sodium (Protonix) 40 mg DAILYAC 12/14/18 07:30 12/15/18 08:37 40 MG Pantoprazole Sodium 80 mg/ Sodium Chloride 100 ml @ 10 mls/hr Q10H 12/12/18 18:30 12/14/18 07:29 DC 12/14/18 06:07 10 MLS/HR Piperacillin Sod/ Tazobactam Sod (Zosyn Per Pharmacy) 1 each PRN DAILY PRN 12/12/18 21:30 Piperacillin Sod/ Tazobactam Sod 3.375 gm/Sodium Chloride 50 ml @ 100 mls/hr Q6HRS 12/12/18 22:00 12/15/18 17:11 100 MLS/HR Polyethylene Glycol (miraLAX Powder BULK BOTTLE) 238 gm 1X ONCE 12/15/18 17:00 12/15/18 17:01 DC 12/15/18 17:10 238 GM Potassium Chloride/Water 100 ml @ 100 mls/hr Q1H 12/12/18 18:30 12/12/18 22:29 DC 12/12/18 21:08 100 MLS/HR Potassium Chloride (Klor-Con) 40 meq 1X ONCE 12/12/18 18:30 12/12/18 18:36 DC Prochlorperazine Edisylate (Compazine) 5 mg PACU PRN PRN 12/16/18 07:00 12/17/18 06:59 Propofol 20 ml @ As Directed STK-MED ONCE 12/14/18 08:36 12/14/18 08:37 DC Ringer's Solution 1,000 ml @ 30 mls/hr Q24H 12/16/18 07:00 12/16/18 18:59 Sertraline HCl (Zoloft) 50 mg DAILY 12/13/18 12:00 12/15/18 08:36 50 MG Sodium Chloride 1,000 ml @ 25 mls/hr Q24H 12/13/18 19:30 12/14/18 21:09 25 MLS/HR Sucralfate (Carafate) 1 gm QIDACHS 12/13/18 16:30 12/15/18 21:38 1 GM LAB Lab: Laboratory Tests Test 12/15/18 05:45 White Blood Count 10.0 x10^3/uL (4.0-11.0) Red Blood Count 2.53 x10^6/uL (4.30-5.70) Hemoglobin 7.8 g/dL (13.0-17.5) Hematocrit 23.4 % (39.0-53.0) Mean Corpuscular Volume 92 fL (79-100) Mean Corpuscular Hemoglobin 31 pg (25-35) Mean Corpuscular Hemoglobin Concent 33 g/dL (31-37) Red Cell Distribution Width 15.6 % (11.5-14.5) Platelet Count 221 x10^3/uL (140-400) Neutrophils (%) (Auto) 66 % (31-73) Lymphocytes (%) (Auto) 20 % (24-48) Monocytes (%) (Auto) 10 % (0-9) Eosinophils (%) (Auto) 4 % (0-3) Basophils (%) (Auto) 0 % (0-3) Neutrophils # (Auto) 6.6 x10^3uL (1.8-7.7) Lymphocytes # (Auto) 2.0 x10^3/uL (1.0-4.8) Monocytes # (Auto) 1.0 x10^3/uL (0.0-1.1) Eosinophils # (Auto) 0.4 x10^3/uL (0.0-0.7) Basophils # (Auto) 0.0 x10^3/uL (0.0-0.2) Sodium Level 142 mmol/L (136-145) Potassium Level 3.9 mmol/L (3.5-5.1) Chloride Level 108 mmol/L (98-107) Carbon Dioxide Level 21 mmol/L (21-32) Anion Gap 13 (6-14) Blood Urea Nitrogen 19 mg/dL (8-26) Creatinine 0.9 mg/dL (0.7-1.3) Estimated GFR (Cockcroft-Gault) 103.1 Glucose Level 90 mg/dL (70-99) Calcium Level 8.0 mg/dL (8.5-10.1) APPLUCHE MD Dec 15, 2018 21:46
[2018-12-15 23:00] VITALS: BP 109/67
[2018-12-16] VITALS (10 sets, daily range): BP systolic 112–140; BP diastolic 54–80
[2018-12-16 05:51] LABS: BASO # 0.1 x10^3/uL (0.0-0.2); BASO % 0 % (0-3); EOS # 0.5 x10^3/uL (0.0-0.7); EOS % 4 % (0-3); HEMATOCRIT 27.6 % (39.0-53.0); HEMOGLOBIN 8.9 g/dL (13.0-17.5); LYMPH # 2.4 x10^3/uL (1.0-4.8); LYMPH % 19 % (24-48); MEAN CORPUSCULAR HEMOGLOBIN 30 pg (25-35); MEAN CORPUSCULAR HGB CONC 32 g/dL (31-37); MEAN CORPUSCULAR VOLUME 92 fL (79-100); MONO # 1.1 x10^3/uL (0.0-1.1); MONO % 9 % (0-9); NEUT # 8.8 x10^3uL (1.8-7.7); NEUT % 68 % (31-73); PLATELET COUNT 242 x10^3/uL (140-400); RED BLOOD COUNT 3.02 x10^6/uL (4.30-5.70); RED CELL DISTRIBUTION WIDTH 15.5 % (11.5-14.5); WHITE BLOOD COUNT 12.9 x10^3/uL (4.0-11.0)
[2018-12-16] MEDS: PIPERACILLIN/TAZOBACTAM 3.375 GM in IV NORMAL SALINE 50ML 50 ML IV SCH ×4 (05:55→23:57)
[2018-12-16] MEDS ORDERED: MORPHINE SULFATE 2 MG/ML VIAL. IV PRN (07:00)
[2018-12-16] MEDS ORDERED: PROCHLORPERAZINE 10 MG/2 ML VIAL. IV PRN (07:00)
[2018-12-16] MEDS ORDERED: HYDROmorphone 2 MG/ML VIAL IV PRN (07:00)
[2018-12-16] MEDS ORDERED: LIDOCAINE 1% PF 2 ML VIAL. ID PRN ×2 (07:00→10:15)
[2018-12-16] MEDS ORDERED: IV RINGERS,LACTATED 1000ML 1,000 ML IV SCH (07:00)
[2018-12-16] MEDS ORDERED: fentaNYL PF VIAL 100 MCG/2 ML VIAL IV PRN ×4 (07:00→10:15)
[2018-12-16] MEDS: SUCRALFATE 1 GM/10 ML ORAL.SUSP. PO SCH ×4 (07:30→21:36)
[2018-12-16] MEDS: PANTOPRAZOLE 40 MG TABLET.DR. PO SCH (07:30)
[2018-12-16] MEDS: FERROUS SULFATE 325 MG TABLET. PO SCH ×2 (08:00→16:50)
[2018-12-16] MEDS: LACTOBACILLUS RHAMNOSUS GG 1 CAPSULE. PO SCH ×2 (09:00→21:33)
[2018-12-16] MEDS: BICALUTAMIDE 50 MG TABLET PO SCH (09:00)
[2018-12-16] MEDS: SERTRALINE 50 MG TABLET. PO SCH (09:00)
[2018-12-16] MEDS: IV RINGERS,LACTATED 1000ML 1,000 ML IV SCH ×2 (10:09→18:09)
[2018-12-16] MEDS ORDERED: MIDAZOLAM HCL/PF 2 MG/2 ML VIAL. IV PRN (10:15)
--- NOTE | 2018-12-16 10:28 | PN ---
DATE: 12/16/2018 LOCATION: He is in room 671. SUBJECTIVE: The patient is awake, alert. Denies any specific complaints. He is undergoing bowel prep for colonoscopy today. OBJECTIVE: VITAL SIGNS: Stable. He is afebrile, awake, alert. CHEST: Clear. HEART: Regular. ABDOMEN: Benign. LABORATORY DATA: Hemoglobin is up to 8.9 this morning. Likely some hemoconcentration related to the bowel prep, but nevertheless certainly not decreasing. IMPRESSION: 1. Gastrointestinal bleed with gastritis on EGD. 2. Status post cerebrovascular accident. 3. Hyperlipidemia. 4. Hypertension. 5. Depression. 6. Prostate cancer. PLAN: Await colonoscopy report with plans to follow, but feel at this point that likely he is ready for discharge back to his home, routine pending therapy approval for safety on the same. UCHE HINSON MD DR: TOMASA/gaurav JOB#: [id number] / [id number]
[2018-12-16] MEDS ORDERED: PROPOFOL 40 ML IV ONE (13:28)
--- NOTE | 2018-12-16 13:59 | PDOC4 ---
PROCEDURE Procedure Colonoscopy anemia and heme + stool anesthesia with propofol Findings- some liquid stool but able to clear- reached cecum NO polyps, ulcers, masses or bleeding site seen Continue present treatment JESSICA VICKERS MD Dec 16, 2018 13:59
[2018-12-16] MEDS: HYDROcodone/APAP 5/325MG 1 TAB TABLET PO PRN (15:16)
--- NOTE | 2018-12-16 15:18 | NUR ---
SW following pt. Spoke with pt again regarding rehab and pt is still refusing. Pt wants to go home with home health. SW discussed if pt goes to rehab he will get PT/OT everyday instead of once or twice a week at home. Pt declined rehab. Pt reported he uses a walker and w/c at home but needs a new w/c. Discussed with RN, Rx for w/c is needed with physician documentation on why pt needs a w/c. Will continue to follow.
--- NOTE | 2018-12-16 16:08 | PATHOLOGY ---
[facility] Accession Number: [id number] . 01 Material submitted: . GASTRIC ANTRUM BIOPSY (GASTRITIS) . 01 Clinical history: . GI bleed, anemia . 02 Diagnosis: Gastric biopsies, antrum: - Chronic gastritis, mild, with small focus of intestinal metaplasia. . (JPM:mml; 12/16/2018) [facility]/12/16/2018 . 02 Comment: Sections of the gastric biopsy reveal segments of gastric antral mucosa showing focally active mild chronic inflammation with a small focus of intestinal metaplasia. A properly-controlled immunoperoxidase stain for Helicobacter is negative for Helicobacter organisms. There is no evidence of malignancy. . Special stain performed: Immunoperoxidase stain for Helicobacter on A1. . (JPM:mml; 12/16/2018) . 02 Electronically signed: . Edward Morfin MD, Pathologist NPI- [id number] . 01 Gross description: . Received in formalin labeled "Vaughn Leon, gastric antrum biopsy," are 2 segments of jennings soft tissue measuring 0.9 x 0.3 x 0.2 cm in aggregate dimensions and ranging from 0.3 to 0.5 cm in maximum dimension. The specimen is submitted entirely in cassette A1. (TSD; 12/15/2018) TOB/TOB . 02 Pathologist provided ICD-10: K29.50 . 02 CPT . 795252, [id number] Specimen Comment: A courtesy copy of this report has been sent to Specimen Comment: [phone], , . Specimen Comment: Report sent to DR VICKERS / DR HINSON Specimen Comment: A duplicate report has been generated due to demographic updates. Performed at: 01 [facility] [address], [place], [place] [id number] MD Ismael Curiel MD Phone: [phone] Performed at: 02 [facility] [address], [place] [id number] MD Edward Morfin MD Phone: [phone]
[2018-12-16] MEDS: IV NORMAL SALINE 1000ML BAG 1,000 ML IV SCH (23:58)
[2018-12-17 03:16] VITALS: BP 104/52
[2018-12-17 04:28] LABS: BASO # 0.1 x10^3/uL (0.0-0.2); BASO % 1 % (0-3); EOS # 0.5 x10^3/uL (0.0-0.7); EOS % 4 % (0-3); HEMATOCRIT 24.6 % (39.0-53.0); HEMOGLOBIN 7.9 g/dL (13.0-17.5); LYMPH # 1.9 x10^3/uL (1.0-4.8); LYMPH % 15 % (24-48); MEAN CORPUSCULAR HEMOGLOBIN 29 pg (25-35); MEAN CORPUSCULAR HGB CONC 32 g/dL (31-37); MEAN CORPUSCULAR VOLUME 91 fL (79-100); MONO % 8 % (0-9); NEUT # 9.4 x10^3uL (1.8-7.7); NEUT % 73 % (31-73); PLATELET COUNT 248 x10^3/uL (140-400); RED BLOOD COUNT 2.71 x10^6/uL (4.30-5.70); RED CELL DISTRIBUTION WIDTH 15.1 % (11.5-14.5); WHITE BLOOD COUNT 12.9 x10^3/uL (4.0-11.0)
[2018-12-17] MEDS: PIPERACILLIN/TAZOBACTAM 3.375 GM in IV NORMAL SALINE 50ML 50 ML IV SCH ×2 (05:51→12:10)
[2018-12-17] MEDS: PANTOPRAZOLE 40 MG TABLET.DR. PO SCH (05:53)
[2018-12-17] MEDS: SUCRALFATE 1 GM/10 ML ORAL.SUSP. PO SCH ×2 (05:53→12:10)
[2018-12-17 07:00] VITALS: BP 107/63
[2018-12-17] MEDS: FERROUS SULFATE 325 MG TABLET. PO SCH (08:43)
[2018-12-17] MEDS: SERTRALINE 50 MG TABLET. PO SCH (08:44)
[2018-12-17] MEDS: LACTOBACILLUS RHAMNOSUS GG 1 CAPSULE. PO SCH (08:44)
[2018-12-17] MEDS: HYDROcodone/APAP 5/325MG 1 TAB TABLET PO PRN (08:45)
[2018-12-17] MEDS: BICALUTAMIDE 50 MG TABLET PO SCH (08:53)
--- NOTE | 2018-12-17 08:58 | SNU/HH DC ---
DISCHARGE ORDERS DISCHARGE INFORMATION: DISCHARGE DATE: Dec 17, 2018 FINAL DIAGNOSIS Problems Medical Problems: (1) Dehydration, severe Status: Acute (2) Fall from standing Status: Acute CONDITION ON DISCHARGE: Stable CODE STATUS: Code Status: Full DETENTION: SNF STAY <30 DAYS: No HOSPICE: HOSPICE: No HOSPICE EVAL & TREAT: No LTAC: ADMIT TO LTAC: No POST DISCHARGE ORDERS: ACTIVITY ORDERS: No restrictions, Activity as tolerated WEIGHT BEARING STATUS: No restrictions DIET AFTER DISCHARGE: Regular CHECKS AFTER DISCHARGE: CHECKS AFTER DISCHARGE: Check blood press - daily TREATMENT/EQUIPMENT ORDERS: ADAPTIVE EQUIPMENT NEEDED: None Physical Therapy For: Evalulation/Treatment Occupational Therapy For: Evaluation/Treatment DISCHARGE MEDICATIONS: Home Meds Active Scripts Cyclobenzaprine Hcl (CYCLOBENZAPRINE HCL) 10 Mg Tablet, 1 TAB PO TID, #30 TAB Prov:ORION ANGELES APRN 07/12/18 Reported Medications Sucralfate (CARAFATE) 1 Gm/10 Ml Oral.susp, 1 GM PO QIDACHS, MISC 12/18/17 Pantoprazole Sodium (PROTONIX) 20 Mg Tablet.dr, 40 MG PO DAILY, TAB 12/18/17 Hydrocodone Bit/Acetaminophen (HYDROCODONE-APAP 7.5-325 ) 1 Each Tablet, 7.5 MG PO PRN Q4-6HRS PRN for PAIN, #120 06/04/16 Ferrous Sulfate (FERROUS SULFATE) 325 Mg Tablet, 325 MG PO BIDWMEALS, #60 06/04/16 Bicalutamide (CASODEX) 50 Mg Tablet, 1 TAB PO DAILY, #30 TAB 11 Refills 08/02/15 Sertraline Hcl (ZOLOFT) 50 Mg Tablet, 1 TAB PO DAILY, #30 TAB 2 Refills 08/02/15 Discontinued Reported Medications Clopidogrel Bisulfate (PLAVIX) 75 Mg Tablet, 1 TAB PO DAILY, #90 TAB 1 Refill 08/02/15 Discontinued Scripts Levofloxacin (LEVAQUIN) 750 Mg Tablet, 1 TAB PO DAILY, #6 TAB Prov:ORION ANGELES APRN 07/12/18 Hydrocodone/Apap 5-325 (NORCO 5-325 TABLET) 1 Each Tablet, 1 TAB PO Q6HRS PRN for PAIN, #20 TAB Prov:ORION ANGELES APRN 07/12/18 UCHE HINSON MD Dec 17, 2018 08:58
--- NOTE | 2018-12-17 09:11 | PDOC ---
Subjective: Subjective: No complaints, says he gets to leave today. Objective: Vital Signs: Vital Signs Date Time Temp Pulse Resp B/P (MAP) Pulse Ox O2 Delivery O2 Flow Rate FiO2 12/17/18 08:45 16 96 Room Air 12/17/18 07:00 98.4 81 107/63 (78) 98.4 12/16/18 14:10 2.0 Labs: Laboratory Tests Test 12/17/18 03:40 White Blood Count 12.9 x10^3/uL Red Blood Count 2.71 x10^6/uL Hemoglobin 7.9 g/dL Hematocrit 24.6 % Mean Corpuscular Volume 91 fL Mean Corpuscular Hemoglobin 29 pg Mean Corpuscular Hemoglobin Concent 32 g/dL Red Cell Distribution Width 15.1 % Platelet Count 248 x10^3/uL Neutrophils (%) (Auto) 73 % Lymphocytes (%) (Auto) 15 % Monocytes (%) (Auto) 8 % Eosinophils (%) (Auto) 4 % Basophils (%) (Auto) 1 % Neutrophils # (Auto) 9.4 x10^3uL Lymphocytes # (Auto) 1.9 x10^3/uL Monocytes # (Auto) 1.0 x10^3/uL Eosinophils # (Auto) 0.5 x10^3/uL Basophils # (Auto) 0.1 x10^3/uL BLOOD CULTURE Preliminary NO GROWTH AFTER 4 DAYS Diagnosis: Gastric biopsies, antrum: - Chronic gastritis, mild, with small focus of intestinal metaplasia. Comment: Sections of the gastric biopsy reveal segments of gastric antral mucosa showing focally active mild chronic inflammation with a small focus of intestinal metaplasia. A properly-controlled immunoperoxidase stain for Helicobacter is negative for Helicobacter organisms. There is no evidence of malignancy. Imaging: Colonoscopy 12/16 anemia and heme + stool Findings- some liquid stool but able to clear- reached cecum NO polyps, ulcers, masses or bleeding site seen PE: GEN: NAD, eating breakfast - eggs LUNGS: CTAB HEART: RRR ABD: NABS, S/ND/NT NEURO/PSYCH: A & O 3 A/P: Left hip fracture Melena, anemia, +fecal occult - EGD and colonoscopy unrevealing -- DC per primary - will review any recs for future EGD w/ small focus of intestinal metaplasia on path as above. Continue iron. KANDY STERLING Dec 17, 2018 09:11
[2018-12-17 11:00] VITALS: BP 98/55
--- NOTE | 2018-12-17 11:40 | NUR ---
SW following pt. Spoke with pt again in room with pt's sister, Lyla over phone. SW discussed pt is declining to go to rehab but is max assist of two with transfers. Pt's sister spoke with pt as well. Lyla reported pt lives alone and she won't be able to check in on him until next week. SW discussed pt is still able to go to rehab if agreeable. SW discussed rehab vs SNU. Pt stated he wants to be closer in [facility]. Pt agreeable with SW sending referral/order to [facility] and [facility]. SW phoned and faxed referral/orders to mentioned facilities. Pt admission and acceptance pending. Will continue to follow. Discussed with RN.
--- NOTE | 2018-12-17 13:02 | NUR ---
Wound care Patient seen per wound care consult. See wound assessment. Patient has Incontinence Associated dermatitis to sacrum/coccyx area. Wound is cleansed and assessed. Recommendations for Calazime cream to be applied. Patient brief changed and Calazime cream applied. No other wounds noted upon complete head to toe assessment. Patient repositioned in bed. Encouraged patient to turn every 2 hours. Dressing change instructions left in room. Bed lowered and call light in reach. Will follow regarding wound care.
--- NOTE | 2018-12-17 14:02 | NUR ---
SW following pt. Pt has been accepted [facility] and they are able to take pt today. SW presented pt with choice and rights forms and pt refused to sign. Pt stated "he is going home" and "does not want to go rehab". SW discussed pt was agreeable with SNF earlier and discussed difference between SNF VS HH. Pt stated "I am grown ass man and I have been doing this by my own". SW discussed pt has been falling a lot at home and is still at risk for falls. Pt reported "If I , I but I am going home". Pt stated he will do 'rehab at home' even if SW explained he will only be getting therapy for 2-3 times a week for an hour. Pt at this time is set on going home. SUDHEER phoned Lyla and informed her pt is refusing SNU and she reported she will call pt in room. Trudy reported pt had fallen at home and refused for EMS to bring him in hospital before. Physician notified. RN also to page Physician as pt is refusing SNU at this time.
--- NOTE | 2018-12-17 15:05 | NUR ---
Patient has discharge orders for inpatient rehab. However he refused placement. SW facilitated discharge to [facility]. Spoke to Dr. Tabor at 1350 and updated about SNF. At 1445, patient expressed he wanted to go home. He said that he will go home AMA if he had to. This nurse discussed it with the charge nurse and SW. Attending physician was updated. Patient's sister was informed at 1500 about the patient's decision. He will be discharged to home with home health.
--- NOTE | 2018-12-17 16:01 | NUR ---
SUDHEER following pt. SUDHEER phoned and faxed home health orders to [facility]. Aminata at [facility] reported they will check in on pt with in 48 hours. SUDHEER arranged transportation via [facility] at 1630. Pt's choice and rights forms verbally consented by pt and copies on chart. SUDHEER left a voice mail to pt's sister, Lyla about dc plan. Discussed with RN.
--- NOTE | 2018-12-17 17:00 | NUR ---
Discharge Note: [facility] Discharge instructions and discharge home medications reviewed with patient and a copy given. All questions have been answered and understanding verbalized. The following instructions and handouts were given: Ff up with Dr Slater after 2 weeks FF up with PCP in a week Check temp and blood pressure daily. PICC line removal aftercare Colonoscopy and EGD aftercare [facility] handout. Patient instructed to get scripts for pain medicine with primary MD. Discontinued lines and drains: triple lumen PICC at right femoral catheter intact, patient tolerated removal, no complications noted. Patient discharged to home with home health via [facility], with EMS/fire dept personnel at 1705.
--- NOTE | 2018-12-18 00:38 | DS ---
DATE OF DISCHARGE: 12/17/2018 PRIMARY DIAGNOSIS: Gastrointestinal bleed. ADDITIONAL DIAGNOSES: Multiple falls, weakness, dehydration, left greater trochanteric fracture, status post cerebrovascular accident with hemiparesis and cancer of the prostate. CHIEF COMPLAINT AND HISTORY OF PRESENT ILLNESS: This is a 63-year-old black male who is well known me from followup in the office. The patient was brought to the Emergency Room by family after multiple falls and weakness. He had been eating and drinking very little according to him because of problems with his girlfriend. He was found to be anemic and have heme positive stool and elevated BUN and creatinine, consistent with dehydration and intraluminal GI blood and admitted to the ICU. SUMMARY OF STAY: The patient was admitted. Hemoglobin, which was normal, followed in the office, was up in the 14 range or so dropped down to 7.9 basically by the time of discharge. It was 9.8 on admission. Acute renal failure resolved during the stay. Ortho saw him for nondisplaced left greater trochanteric hip fracture and felt that this should be followed expectantly, but no treatment necessary. He did have an EGD and colonoscopy showing gastritis during the stay by GI and did not require any transfusions. Therapy felt he should go to inpatient rehabilitation, but he refused as well as refusing [facility] and eventually was sent home with plans on home health to follow. DISPOSITION: The patient is discharged to home. Regular diet. Activity as tolerated. Follow up in the office in 1 week. DISCHARGE MEDICATIONS: Listed on the med rec and have been addressed. UCHE HINSON MD DR: TOMASA/gaurav JOB#: [id number] / [id number]
== END 2018-12-17 17:00 | disposition home health service (06) | DRG 377 ==
LOC: ER 15:08 → 1 WEST ICU 18:56 → 6 SOUTH 12-13 19:15
PROVIDERS: ADMIT Family Medicine; ATTEND Family Medicine
PROC: 06HY33Z Insertion of Infusion Device into Lower Vein, Percutaneous Approach (ICD-10-PCS; 2018-12-12)
PROC: 0DB68ZX Excision of Stomach, Via Natural or Artificial Opening Endoscopic, Diagnostic (ICD-10-PCS; principal; 2018-12-14 08:30)
PROC: 0DJD8ZZ Inspection of Lower Intestinal Tract, Via Natural or Artificial Opening Endoscopic (ICD-10-PCS; 2018-12-16)
DX: K29.71 Gastritis, unspecified, with bleeding (principal); S72.112A Displaced fracture of greater trochanter of left femur, initial encounter for closed fracture; R65.11 Systemic inflammatory response syndrome (SIRS) of non-infectious origin with acute organ dysfunction; M62.82 Rhabdomyolysis; I69.354 Hemiplegia and hemiparesis following cerebral infarction affecting left non-dominant side; N17.9 Acute kidney failure, unspecified; E87.6 Hypokalemia; I10 Essential (primary) hypertension; E78.5 Hyperlipidemia, unspecified; E83.51 Hypocalcemia; E86.0 Dehydration; D50.0 Iron deficiency anemia secondary to blood loss (chronic); F17.200 Nicotine dependence, unspecified, uncomplicated; F32.9 Major depressive disorder, single episode, unspecified; K21.9 Gastro-esophageal reflux disease without esophagitis; M19.90 Unspecified osteoarthritis, unspecified site; W18.30XA Fall on same level, unspecified, initial encounter; Z96.642 Presence of left artificial hip joint; Z85.46 Personal history of malignant neoplasm of prostate; Z86.19 Personal history of other infectious and parasitic diseases; Z87.11 Personal history of peptic ulcer disease; Z79.899 Other long term (current) drug therapy; Y93.89 Activity, other specified; Y92.009 Unspecified place in unspecified non-institutional (private) residence as the place of occurrence of the external cause; Y99.8 Other external cause status
CPT/HCPCS: 36415; 36600; 43239; 45378; 51702; 70450; 71045; 73502; 74022; 80048; 80053; 80307; 81001; 82274; 82310; 82553; 82805; 83690; 83735; 83880; 84443; 84484; 85018; 85025; 85610; 86850; 86900; 86901; 86920; 87040; 87641; 88305; 88342; 93005; 94640; 96361; 96365; 96375; C9113; J0610; J2543; J2704; J3010; J3480; J7030; J7120; 97530; 97535; 99285-25

== ENCOUNTER 2018-12-24 11:10 | Inpatient (IN) | payer MEDICARE, OTHER ==
[~2018-12-24] VITALS: Ht 193 cm; Wt 69.2 kg
--- NOTE | 2018-12-24 11:27 | PHYS DOC ---
Past Medical History Past Medical History: CVA, Other Additional Past Medical Histor: Left hemiparalysis Past Surgical History: Other Additional Past Surgical Histo: back, unknown Alcohol Use: Occasionally Drug Use: None Adult General Chief Complaint Chief Complaint: HIP PAIN HPI HPI Patient is a 63 year old male who presents with multiple falls last hospitalization being December 13 and he was admitted for fall, weakness, hypokalemia, hypocalcemia, dehydration, anemia. Patient comes in today because he states that he woke up on the kitchen floor and does not remember how he got there. Patient states he still has left hip pain and states that he's had a fracture in that hip last time he was here when it was never repaired. All patient also couldn't concerned that his coccyx and buttocks are hurting. Patient states he is chair bound. Patient has a history of CVA with left-sided paralysis. Vital signs are within normal limits. Patient rates his pain a 7 out of 10. Review of Systems Review of Systems Constitutional: Denies fever or chills [] Eyes: Denies change in visual acuity, redness, or eye pain [] HENT: Denies nasal congestion or sore throat [] Respiratory: Denies cough or shortness of breath [] Cardiovascular: No additional information not addressed in HPI [] GI: Denies abdominal pain, nausea, vomiting, bloody stools or diarrhea [] : Denies dysuria or hematuria [] Musculoskeletal: Denies back pain. left hip joint pain [] Integument: Coccyx wound. Denies rash or skin lesions [] Neurologic: Denies headache, focal weakness or sensory changes [] All other systems were reviewed and found to be within normal limits, except as documented in this note. Current Medications Current Medications Current Medications Medications (Trade) Dose Ordered Sig/[facility] Start Time Stop Time Status Last Admin Dose Admin Acetaminophen (Tylenol) 650 mg PRN Q4HRS PRN 12/24/18 15:15 12/25/18 15:14 Fentanyl Citrate (Fentanyl 2ml Vial) 50 mcg PRN Q1HR PRN 12/24/18 15:15 12/25/18 15:14 Ondansetron HCl (Zofran) 4 mg PRN Q8HRS PRN 12/24/18 15:15 12/25/18 15:14 Sodium Chloride 1,000 ml @ 80 mls/hr [id number] 12/24/18 15:11 12/25/18 15:10 Allergies Allergies Allergies Coded Allergies Type Severity Reaction Last Updated Verified No Known Drug Allergies 12/16/18 No Physical Exam Physical Exam Constitutional: Well developed, well nourished, no acute distress, non-toxic appearance. [] HENT: Normocephalic, atraumatic, bilateral external ears normal, oropharynx moist, no oral exudates, nose normal. [] Eyes: PERRLA, EOMI, conjunctiva normal, no discharge. [] Neck: Normal range of motion, no tenderness, supple, no stridor. [] Cardiovascular:Heart rate regular rhythm, no murmur [] Lungs & Thorax: Bilateral breath sounds clear to auscultation [] Abdomen: Bowel sounds normal, soft, no tenderness, no masses, no pulsatile masses. [] Skin: States 2 coccyx wound on right buttock, stage 2 wound on left buttock. Warm, dry, no erythema, no rash. [] Back: No tenderness, no CVA tenderness. [] Extremities: Left hip tenderness, no cyanosis, no clubbing, left hip ROM not intact and rotated outward, Bilateral pedal 2+ pitting edema. [] Neurologic: Alert and oriented X 3, normal motor function, normal sensory function, no focal deficits noted. [] Psychologic: Affect normal, judgement normal, mood normal. [] Current Patient Data Vital Signs Vital Signs Date Time Temp Pulse Resp B/P (MAP) Pulse Ox O2 Delivery O2 Flow Rate FiO2 12/24/18 15:00 104 12/24/18 13:14 16 127/81 (96) 96 12/24/18 12:20 98.3 Room Air 98.3 Lab Values Laboratory Tests Test 12/24/18 11:50 12/24/18 12:50 12/24/18 14:14 Lactic Acid Level 2.0 mmol/L (0.4-2.0) White Blood Count 17.4 x10^3/uL (4.0-11.0) H Red Blood Count 2.99 x10^6/uL (4.30-5.70) L Hemoglobin 8.7 g/dL (13.0-17.5) L Hematocrit 27.8 % (39.0-53.0) L Mean Corpuscular Volume 93 fL (79-100) Mean Corpuscular Hemoglobin 29 pg (25-35) Mean Corpuscular Hemoglobin Concent 31 g/dL (31-37) Red Cell Distribution Width 14.3 % (11.5-14.5) Platelet Count 400 x10^3/uL (140-400) Neutrophils (%) (Auto) 86 % (31-73) H Lymphocytes (%) (Auto) 9 % (24-48) L Monocytes (%) (Auto) 4 % (0-9) Eosinophils (%) (Auto) 2 % (0-3) Basophils (%) (Auto) 0 % (0-3) Neutrophils # (Auto) 14.9 x10^3uL (1.8-7.7) H Lymphocytes # (Auto) 1.5 x10^3/uL (1.0-4.8) Monocytes # (Auto) 0.7 x10^3/uL (0.0-1.1) Eosinophils # (Auto) 0.3 x10^3/uL (0.0-0.7) Basophils # (Auto) 0.0 x10^3/uL (0.0-0.2) Segmented Neutrophils % 83 % (35-66) H Band Neutrophils % 2 % (0-9) Lymphocytes % 11 % (24-48) L Monocytes % 2 % (0-10) Eosinophils % 1 % (0-5) Basophils % 1 % (0-3) Platelet Estimate Increased (ADEQUATE) Sodium Level 135 mmol/L (136-145) L Potassium Level 4.5 mmol/L (3.5-5.1) Chloride Level 100 mmol/L (98-107) Carbon Dioxide Level 20 mmol/L (21-32) L Anion Gap 15 (6-14) H Blood Urea Nitrogen 29 mg/dL (8-26) H Creatinine 1.4 mg/dL (0.7-1.3) H Estimated GFR (Cockcroft-Gault) 61.9 BUN/Creatinine Ratio 21 (6-20) H Glucose Level 92 mg/dL (70-99) Calcium Level 9.1 mg/dL (8.5-10.1) Total Bilirubin 0.7 mg/dL (0.2-1.0) Aspartate Amino Transferase (AST) 15 U/L (15-37) Alanine Aminotransferase (ALT) 12 U/L (16-63) L Alkaline Phosphatase 72 U/L (46-116) Total Protein 8.0 g/dL (6.4-8.2) Albumin 2.5 g/dL (3.4-5.0) L Albumin/Globulin Ratio 0.5 (1.0-1.7) L Urine Collection Type Unknown Urine Color Yellow Urine Clarity Clear Urine pH 5.5 Urine Specific [place] 1.020 Urine Protein Negative mg/dL (NEG-TRACE) Urine Glucose (UA) Negative mg/dL (NEG) Urine Ketones (Stick) Negative mg/dL (NEG) Urine Blood Negative (NEG) Urine Nitrite Negative (NEG) Urine Bilirubin Small (NEG) Urine Urobilinogen Dipstick 1.0 mg/dL (0.2 mg/dL) Urine Leukocyte Esterase Moderate (NEG) Urine RBC 1-2 /HPF (0-2) Urine WBC 11-20 /HPF (0-4) Urine Squamous Epithelial Cells Mod /LPF Urine Transitional Epithelial Cells Mod /LPF Urine Bacteria 0 /HPF (0-FEW) Urine Hyaline Casts Many /HPF Urine Mucus Mod /LPF Laboratory Tests 12/24/18 12:50 Laboratory Tests 12/24/18 12:50 EKG EKG [] Radiology/Procedures Radiology/Procedures [] Impressions: [facility] [address] [place] [address] IMAGING REPORT Signed PATIENT: RILEY NATION ACCOUNT: [id number] : 1955 LOCATION: ER AGE: 63 SEX: M EXAM STATUS: REG ER ORD. PHYSICIAN: ROSA BLACKBURN APRN REASON: FALL, PRIOR FX PROCEDURE: HIP LEFT 2V WITH PELVIS Examination: HIP LEFT 2V WITH PELVIS History: FALL, LEFT HIP PAIN Comparison/Correlation: 12/12/2018 left hip x-ray exam with frontal view of the pelvis Findings: Frontal view pelvis was obtained. Frontal and frog-leg lateral views of the left hip were obtained. Portable technique utilized. Left hip joint prosthesis is unremarkable. No evidence of loosening or dislocation. No acute fracture. Fracture involving the lateral aspect of the proximal left femur at the lower greater trochanter level is similar compared to 12/12/2018. Osteopenia noted. Calcific involvement of the medial thighs bilaterally noted. Impression: No acute process. No change in fracture deformity of the left greater trochanter inferiorly. No loosening. Electronically signed by: Adama Escobedo MD (12/24/2018 12:19 PM) [id number] DICTATED and SIGNED BY: ADAMA ESCOBEDO MD DATE: 12/24/18 1219 [facility] [address] [place] [address] IMAGING REPORT Signed PATIENT: RILEY NATION ACCOUNT: [id number] : 1955 LOCATION: ER AGE: 63 SEX: M EXAM STATUS: REG ER ORD. PHYSICIAN: ROSA BLACKBURN APRN REASON: fall, weakness PROCEDURE: CT HEAD WO CONTRAST CT HEAD WITHOUT CONTRAST 12/24/2018 12:41 PM Indication: FALL, WEAKNESS, PRIOR SENT Comparison: CT of the head without contrast December 12, 2018 Procedure: Multidetector CT imaging of the head was performed without the administration of contrast. Findings: Right frontal and temporal encephalomalacia is grossly unchanged. Resultant dilatation of the right lateral ventricle is unchanged. No evidence of acute intracranial hemorrhage is identified. No evidence of interval territorial infarct is appreciated. Note that CT is limited for the evaluation of acute ischemia. No new abnormal extra-axial fluid collection is identified. No new mass effect or midline shift is seen. The basilar cisterns appear grossly patent. No acute osseous changes are noted in the interim. Opacification of the right frontal sinus is stable. Impression: Stable exam without evidence of acute intracranial abnormality CT DOSING PQRS STATEMENT: One or more of the following individualized dose reduction techniques were utilized for this examination: 1. Automated exposure control 2. Adjustment of the mA and/or kV according to patient size 3. Use of iterative reconstruction technique Electronically signed by: Lloyd Lawrence MD (12/24/2018 1:51 PM) [id number] DICTATED and SIGNED BY: LLOYD LAWRENCE MD DATE: 12/24/18 1351 Course & Med Decision Making Course & Med Decision Making Patient is a 63 year old male who presents with multiple falls last hospitalization being December 13 and he was admitted for fall, weakness, hypokalemia, hypocalcemia, dehydration, anemia. Patient comes in today because he states that he woke up on the kitchen floor and does not remember how he got there. Patient states he still has left hip pain and states that he's had a fracture in that hip last time he was here when it was never repaired. All patient also couldn't concerned that his coccyx and buttocks are hurting. Patient states he is chair bound. Patient has a history of CVA with left-sided paralysis. Vital signs are within normal limits. Patient rates his pain a 7 out of 10. Alert and oriented. Speaks in full clear sentences. Patient has a right buttock stage II wound and a left buttock stage II wound. Patient's left leg is rotated out the patient states is been rotated outward. There is movement with pain with movement and there is not intact range of motion. Patient has bilateral pedal 1-2+ edema. Lungs are clear to auscultation in all lobes. Upon arrival patient is sitting in a dependent diaper that is full of stool and urine. Blood work is abnormal and urinalysis is infected. Patient refusing EKG. Patient is admitted by Dr Hinson for dehydration. Dragon Disclaimer Dragon Disclaimer This electronic medical record was generated, in whole or in part, using a voice recognition dictation system. Departure Departure Impression: Primary Impression: Dehydration, severe Disposition: ADMITTED INPATIENT Admitting Physician: Uche Hinosn Condition: STABLE Referrals: UCHE HINSON MD (PCP) ROSA BLACKBURN APRN Dec 24, 2018 11:27
--- NOTE | 2018-12-24 12:22 | RAD ---
Examination: HIP LEFT 2V WITH PELVIS History: FALL, LEFT HIP PAIN Comparison/Correlation: 12/12/2018 left hip x-ray exam with frontal view of the pelvis Findings: Frontal view pelvis was obtained. Frontal and frog-leg lateral views of the left hip were obtained. Portable technique utilized. Left hip joint prosthesis is unremarkable. No evidence of loosening or dislocation. No acute fracture. Fracture involving the lateral aspect of the proximal left femur at the lower greater trochanter level is similar compared to 12/12/2018. Osteopenia noted. Calcific involvement of the medial thighs bilaterally noted. Impression: No acute process. No change in fracture deformity of the left greater trochanter inferiorly. No loosening. Electronically signed by: Adama Yoon MD (12/24/2018 12:19 PM) [id number]
[2018-12-24 13:21] LABS: BASO % 0 % (0-3); EOS # 0.3 x10^3/uL (0.0-0.7); EOS % 2 % (0-3); HEMATOCRIT 27.8 % (39.0-53.0); HEMOGLOBIN 8.7 g/dL (13.0-17.5); LYMPH # 1.5 x10^3/uL (1.0-4.8); LYMPH % 9 % (24-48); MEAN CORPUSCULAR HEMOGLOBIN 29 pg (25-35); MEAN CORPUSCULAR HGB CONC 31 g/dL (31-37); MEAN CORPUSCULAR VOLUME 93 fL (79-100); MONO # 0.7 x10^3/uL (0.0-1.1); MONO % 4 % (0-9); NEUT # 14.9 x10^3uL (1.8-7.7); NEUT % 86 % (31-73); PLATELET COUNT 400 x10^3/uL (140-400); RED BLOOD COUNT 2.99 x10^6/uL (4.30-5.70); RED CELL DISTRIBUTION WIDTH 14.3 % (11.5-14.5); WHITE BLOOD COUNT 17.4 x10^3/uL (4.0-11.0)
[2018-12-24 13:27] LABS: CALCIUM 9.1 mg/dL (8.5-10.1); CREATININE 1.4 mg/dL (0.7-1.3); GFR 61.9; POTASSIUM 4.5 mmol/L (3.5-5.1)
[2018-12-24 13:32] LABS: ALBUMIN 2.5 g/dL (3.4-5.0); ALBUMIN/GLOBULIN RATIO 0.5 (1.0-1.7); TOTAL BILIRUBIN 0.7 mg/dL (0.2-1.0)
--- NOTE | 2018-12-24 13:54 | RAD ---
CT HEAD WITHOUT CONTRAST 12/24/2018 12:41 PM Indication: FALL, WEAKNESS, PRIOR SENT Comparison: CT of the head without contrast December 12, 2018 Procedure: Multidetector CT imaging of the head was performed without the administration of contrast. Findings: Right frontal and temporal encephalomalacia is grossly unchanged. Resultant dilatation of the right lateral ventricle is unchanged. No evidence of acute intracranial hemorrhage is identified. No evidence of interval territorial infarct is appreciated. Note that CT is limited for the evaluation of acute ischemia. No new abnormal extra-axial fluid collection is identified. No new mass effect or midline shift is seen. The basilar cisterns appear grossly patent. No acute osseous changes are noted in the interim. Opacification of the right frontal sinus is stable. Impression: Stable exam without evidence of acute intracranial abnormality CT DOSING PQRS STATEMENT: One or more of the following individualized dose reduction techniques were utilized for this examination: 1. Automated exposure control 2. Adjustment of the mA and/or kV according to patient size 3. Use of iterative reconstruction technique Electronically signed by: Lloyd Sanchez MD (12/24/2018 1:51 PM) [facility]
[2018-12-24 14:22] LABS: BILIRUBIN,URINE SMALL (NEG); CLARITY,URINE CLEAR; COLOR,URINE YELLOW; NITRITE,URINE NEGATIVE (NEG); PH,URINE 5.5; PROTEIN,URINE NEGATIVE (NEG-TRACE)
[2018-12-24 14:33] LABS: HYALINE CASTS, URINE MANY /HPF; SQUAMOUS EPITHELIAL CELL,UR MOD /LPF
[2018-12-24 14:35] LABS: BACTERIA,URINE 0 /HPF (0-FEW)
[2018-12-24 15:08] LABS: % BANDS 2 % (0-9); % BASOS 1 % (0-3); % EOS 1 % (0-5); % LYMPHS 11 % (24-48); % MONOS 2 % (0-10); % SEGS 83 % (35-66); PLT ESTIMATE INCREASED (ADEQUATE)
[2018-12-24] MEDS ORDERED: fentaNYL PF VIAL 100 MCG/2 ML VIAL IV PRN (15:15)
[2018-12-24] MEDS ORDERED: ACETAMINOPHEN 325 MG TABLET. PO PRN (15:15)
[2018-12-24] MEDS ORDERED: ONDANSETRON PF 4 MG/2 ML VIAL. IV PRN (15:15)
[2018-12-24 17:15] VITALS: BP 137/70
[2018-12-24 19:00] VITALS: BP 125/86
[2018-12-24] MEDS: IV NORMAL SALINE 1000ML BAG 1,000 ML IV SCH (20:26)
--- NOTE | 2018-12-24 22:29 | NUR ---
Pt has severe sacral wound due to immobility, multiple urinary incontinence episodes. notified, suggested indwelling MD helen denied. Will continue to turn Q2, check incontinence, keep pt clean and dry, order P500 bed. Will continue to monitor Pt.
[2018-12-24 23:00] VITALS: BP 120/59
[2018-12-25 03:00] VITALS: BP 126/70
[2018-12-25] MEDS: IV NORMAL SALINE 1000ML BAG 1,000 ML IV SCH (06:51)
[2018-12-25 07:00] VITALS: BP 119/78
--- NOTE | 2018-12-25 08:21 | EKG ---
[facility] [address] [place] [address] Test Date: 2018-12-25 Test Time: 07:59:05 Pat Name: RILEY NATION Department: Room: 436 1 Gender: M Pourer Buggy Ladle: TANJA : 1955 Requested By: ROSA BLACKBURN Order Number: [id number] Reading MD: Jhonatan Covington MD Measurements Intervals [place] Rate: 84 P: 65 [place]: 150 QRS: 51 QRSD: 74 T: 74 QT: 352 QTc: 419 Interpretive Statements SINUS RHYTHM Electronically Signed On 12-26-2018 17:20:11 CDT by Jhonatan Covington MD
--- NOTE | 2018-12-25 08:40 | PDOC ---
GENERAL General: see dictated H&P. VITAL SIGNS Vital Signs: Vital Signs Date Time Temp Pulse Resp B/P (MAP) Pulse Ox O2 Delivery O2 Flow Rate FiO2 12/25/18 07:00 98.3 83 16 119/78 (92) 99 Room Air 98.3 I & O I & O Intake and Output 12/25/18 06:59 Intake Total 0 ml Balance 0 ml Intake Oral 0 ml # Voids 3 ALLERGIES Allergies: Allergies Coded Allergies Type Severity Reaction Last Updated Verified No Known Drug Allergies 12/16/18 No MEDS Medications: Current Medications Medications (Trade) Dose Ordered Sig/[place] Start Time Stop Time Status Last Admin Dose Admin Acetaminophen (Tylenol) 650 mg PRN Q4HRS PRN 12/24/18 15:15 12/25/18 15:14 Fentanyl Citrate (Fentanyl 2ml Vial) 50 mcg PRN Q1HR PRN 12/24/18 15:15 12/25/18 15:14 12/24/18 20:25 50 MCG Ondansetron HCl (Zofran) 4 mg PRN Q8HRS PRN 12/24/18 15:15 12/25/18 15:14 12/24/18 20:25 4 MG Sodium Chloride 1,000 ml @ 80 mls/hr [id number] 12/24/18 15:11 12/25/18 15:10 12/25/18 06:51 80 MLS/HR LAB Lab: Laboratory Tests Test 12/24/18 11:50 12/24/18 12:50 12/24/18 14:14 12/24/18 15:40 Lactic Acid Level 2.0 mmol/L (0.4-2.0) White Blood Count 17.4 x10^3/uL (4.0-11.0) Red Blood Count 2.99 x10^6/uL (4.30-5.70) Hemoglobin 8.7 g/dL (13.0-17.5) Hematocrit 27.8 % (39.0-53.0) Mean Corpuscular Volume 93 fL (79-100) Mean Corpuscular Hemoglobin 29 pg (25-35) Mean Corpuscular Hemoglobin Concent 31 g/dL (31-37) Red Cell Distribution Width 14.3 % (11.5-14.5) Platelet Count 400 x10^3/uL (140-400) Neutrophils (%) (Auto) 86 % (31-73) Lymphocytes (%) (Auto) 9 % (24-48) Monocytes (%) (Auto) 4 % (0-9) Eosinophils (%) (Auto) 2 % (0-3) Basophils (%) (Auto) 0 % (0-3) Neutrophils # (Auto) 14.9 x10^3uL (1.8-7.7) Lymphocytes # (Auto) 1.5 x10^3/uL (1.0-4.8) Monocytes # (Auto) 0.7 x10^3/uL (0.0-1.1) Eosinophils # (Auto) 0.3 x10^3/uL (0.0-0.7) Basophils # (Auto) 0.0 x10^3/uL (0.0-0.2) Segmented Neutrophils % 83 % (35-66) Band Neutrophils % 2 % (0-9) Lymphocytes % 11 % (24-48) Monocytes % 2 % (0-10) Eosinophils % 1 % (0-5) Basophils % 1 % (0-3) Platelet Estimate Increased (ADEQUATE) Sodium Level 135 mmol/L (136-145) Potassium Level 4.5 mmol/L (3.5-5.1) Chloride Level 100 mmol/L (98-107) Carbon Dioxide Level 20 mmol/L (21-32) Anion Gap 15 (6-14) Blood Urea Nitrogen 29 mg/dL (8-26) Creatinine 1.4 mg/dL (0.7-1.3) Estimated GFR (Cockcroft-Gault) 61.9 BUN/Creatinine Ratio 21 (6-20) Glucose Level 92 mg/dL (70-99) Calcium Level 9.1 mg/dL (8.5-10.1) Total Bilirubin 0.7 mg/dL (0.2-1.0) Aspartate Amino Transf (AST/SGOT) 15 U/L (15-37) Alanine Aminotransferase (ALT/SGPT) 12 U/L (16-63) Alkaline Phosphatase 72 U/L (46-116) Total Protein 8.0 g/dL (6.4-8.2) Albumin 2.5 g/dL (3.4-5.0) Albumin/Globulin Ratio 0.5 (1.0-1.7) Urine Collection Type Unknown Urine Color Yellow Urine Clarity Clear Urine pH 5.5 Urine Specific [place] 1.020 Urine Protein Negative mg/dL (NEG-TRACE) Urine Glucose (UA) Negative mg/dL (NEG) Urine Ketones (Stick) Negative mg/dL (NEG) Urine Blood Negative (NEG) Urine Nitrite Negative (NEG) Urine Bilirubin Small (NEG) Urine Urobilinogen Dipstick 1.0 mg/dL (0.2 mg/dL) Urine Leukocyte Esterase Moderate (NEG) Urine RBC 1-2 /HPF (0-2) Urine WBC 11-20 /HPF (0-4) Urine Squamous Epithelial Cells Mod /LPF Urine Transitional Epithelial Cells Mod /LPF Urine Bacteria 0 /HPF (0-FEW) Urine Hyaline Casts Many /HPF Urine Mucus Mod /LPF Troponin I Quantitative < 0.017 ng/mL (0.000-0.055) Test 12/24/18 21:10 Troponin I Quantitative < 0.017 ng/mL (0.000-0.055) APPLUCHE MD Dec 25, 2018 08:40
--- NOTE | 2018-12-25 10:42 | NUR ---
called consult to dr camacho at this time
[2018-12-25 11:00] VITALS: BP 110/63
--- NOTE | 2018-12-25 12:15 | NUR ---
Wound Care Note Pt has stage 3 pressure ulcers on sacrum clustered together. Pt is incontinent. Pt's nurse states she getting ready to insert damon catheter and that pt has a P500 mattress that she will transfer him to once WC team has completed assessment and dressing change. Wound is covered with calazime lotion and left CARA. [place] recommendation paper is filled out and left in pt's room. Pt has visitor at bedside when WC leaves.
--- NOTE | 2018-12-25 12:25 | HP ---
ADMIT DATE: 12/24/2018 CHIEF COMPLAINT AND HISTORY OF PRESENT ILLNESS: This 63-year-old black male is well known to me from followup in the office. The patient was recently dismissed from the hospital after an episode of GI bleed. He was recommended to go to inpatient rehab, but he refused at that point in time. The patient was home alone. His family has been calling me over the last 3-4 days, tried to intervene to get him back to the hospital as the patient has not been able to get out of his wheelchair, has not been eating or drinking as he is unable to prepare food for himself, has been more belligerent than usual, a little bit confused at times. They finally convinced him to go to the Emergency Room where the patient was found to be and had some acute kidney injury. Has been mildly confused as well as having what was felt to be a stage 1 sacral decubitus, turning into a 2-3 over the 4-5 days at home. His wheelchair is broken, is not functional. He is status post CVA with left hemiparesis, also has one of his left leg braces not functional and needs to be replaced. In addition, he was found again to have all this plethora of problems, admitted back to the hospital. PAST MEDICAL HISTORY: Well documented on old charts. Does include a prior CVA with left hemiparesis. He has a history of depression, has a history of carcinoma of the prostate, has a history of gastric ulcers with GI bleeding. Most recent hospitalization showed some gastritis with colonoscopy, not showing any sort of bleeding source. 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 MEDICATIONS: Brought with the patient, listed on the computer and had been addressed. ALLERGIES: He has no known drug allergies. SOCIAL HISTORY: He is a smoker, nondrinker, does not use drugs. Lives at home alone, is single. FAMILY HISTORY: Noncontributory. REVIEW OF SYSTEMS: As mentioned above. PHYSICAL EXAMINATION: GENERAL: He is an ill-appearing male who again is not as cooperative as normal. VITAL SIGNS: Stable. He is afebrile. HEAD, EYES, EARS, NOSE AND THROAT: Unremarkable. NECK: Supple, no adenopathy or thyromegaly. CHEST: Clear to auscultation and percussion. HEART: Regular rate and rhythm without S3, S4, or murmur. ABDOMEN: Soft, nontender, without hepatosplenomegaly or masses. EXTREMITIES: Without cyanosis, clubbing, significant edema. NEUROLOGICAL: Remarkable for the dense left hemiparesis. LABORATORY DATA: Review shows a white count of 17,400 with a left shift. Urine is leukocyte esterase positive as well as having white cells and may very well be the source. BUN and creatinine are increased at 29 and 1.4, albumin is low at 2.5. CT head shows no acute changes, the old stroke changes and pictures of the hip and pelvis shows stable left greater trochanteric fracture without displacement. IMPRESSION: 1. Encephalopathy. 2. Leukocytosis. 3. Probable urinary tract infection. 4. New stage 2 to 3 sacral decubitus ulcer. 5. Status post cerebrovascular accident with hemiparesis, unable to do self-care. 6. Recent left greater trochanteric fracture with pain further inhibiting his ability to do self-care. 7. Prostate cancer. PLAN: The patient has been admitted. We will ask the brace people to see him as well as wheelchair people to try to address these issues. Wound care will be asked to see for the decubitus. A Calero catheter will be placed at this point due to incontinence to help heal the Calero catheter. An appropriate mattress is on his bed. A urine culture will be obtained. He will be placed on Rocephin pending cultures for the leukocytosis. Therapy will be asked to see him. I told him at this point, I am the boss and he is going to rehabilitation at discharge and at least this morning, he is not arguing. UCHE HINSON MD DR: TOMASA/gaurav JOB#: [id number] / [id number]
--- NOTE | 2018-12-25 14:49 | NUR ---
SW following. Chart reviewed, discussed with RN. Pt is from home alone, with [facility]. SW awaiting PT/OT for discharge recommendations. SW will continue to follow.
[2018-12-25 15:00] VITALS: BP 117/65
[2018-12-25] MEDS ORDERED: HYDROcodone/APAP 7.5/325MG 1 TAB TABLET PO PRN (16:45)
[2018-12-25] MEDS: SERTRALINE 50 MG TABLET. PO SCH (17:14)
[2018-12-25] MEDS: FERROUS SULFATE 325 MG TABLET. PO SCH (17:14)
[2018-12-25] MEDS: PANTOPRAZOLE 40 MG TABLET.DR. PO SCH (17:14)
[2018-12-25] MEDS: BICALUTAMIDE 50 MG TABLET PO SCH (17:21)
[2018-12-25] MEDS: cefTRIAXone IV Push 1 GM VIAL. IVP SCH (17:23)
[2018-12-25 19:00] VITALS: BP 118/71
[2018-12-25] MEDS: SUCRALFATE 1 GM TABLET. PO SCH (20:37)
[2018-12-25 23:00] VITALS: BP 129/66
[2018-12-26 03:00] VITALS: BP 118/62
[2018-12-26 07:00] VITALS: BP 137/63
[2018-12-26] MEDS: MULTIVITAMIN with MINERAL TABLET. PO SCH (09:18)
[2018-12-26] MEDS: PANTOPRAZOLE 40 MG TABLET.DR. PO SCH (09:19)
[2018-12-26] MEDS: SERTRALINE 50 MG TABLET. PO SCH (09:19)
[2018-12-26] MEDS: FERROUS SULFATE 325 MG TABLET. PO SCH ×2 (09:19→18:18)
[2018-12-26] MEDS: SUCRALFATE 1 GM TABLET. PO SCH ×4 (09:19→20:48)
[2018-12-26] MEDS: BICALUTAMIDE 50 MG TABLET PO SCH (09:23)
--- NOTE | 2018-12-26 10:03 | PN ---
DATE: 12/26/2018 LOCATION: He is in room 436. SUBJECTIVE: The patient is awake, alert, seems to be back to more of a baseline mental status, not as quite as disagreeable and was probably at least a little mildly confused yesterday. OBJECTIVE: VITAL SIGNS: Stable. He is afebrile. T-max 99.5 GENERAL: He is on IV Rocephin currently for the leukocytosis and what looks like a urinary tract infection. He is on an air flotation mattress bed for his sacral decubitus. CHEST: Clear. HEART: Regular. ABDOMEN: Benign. EXTREMITIES: Left hemiparesis stable. Encouraged participation with therapy and eating well for nutritional status for the bedsore. Therapy's recommendation once again is an acute rehab facility and at least this morning, the patient seems agreeable to whatever we will get him knowing. Funeral Service Practitioner/Embalmer should be seeing him, working on getting him a new leg brace and going to ask for therapy to start whatever process to get him a different new wheelchair as his is broken. IMPRESSION: 1. Encephalopathy, improved. 2. Leukocytosis. 3. Probable urinary tract infection. 4. Stage 2-3 sacral decubitus ulcer. 5. Status post cerebrovascular accident with left hemiparesis and inability to do self-care due to weakness, likely due to infection. 6. Recent left greater trochanteric fracture with pain further inhibiting his ability to do self-care. 7. Prostate cancer. 8. Protein-calorie malnutrition with an albumin of 2.5 on admission. PLAN: Continue present antibiotics, we will recheck labs in the morning and we expect his kidney failure to resolve with having food and drink available, which he was unable to do at home. Therapy will continue, acute rehab will be planned likely at discharge. We need again work on getting him a leg brace and as well as a wheelchair prior to consideration of home, however. UCHE HINSNO MD DR: TOMASA/gaurav JOB#: [id number] / [id number]
[2018-12-26 11:00] VITALS: BP_SYST 113; BP_SYST 122; BP_DIAS 54; BP_DIAS 71
[2018-12-26] MEDS ORDERED: ONDANSETRON PF 4 MG/2 ML VIAL. IV PRN (11:00)
--- NOTE | 2018-12-26 12:11 | NUR ---
SW following. Discussed with RN, SUDHEER met with pt to discuss PT/OT recommendation of SNU and Acute Rehab. Pt was adamant that he would not go to a facility, stating "I will have rehab at home, I will have rehab at home". SUDHEER discussed with pt about Dr. Tabor wanting pt to go to rehab and pt agreeing with Dr. Tabor. Pt stated he doesn't want to go. SUDHEER spoke with RN, RN paged Dr. Tabor to discuss. Per RN, pt will not be discharged home and he will speak with pt again about going to a facility for a short time. SUDHEER will continue to follow.
[2018-12-26 15:00] VITALS: BP 112/64
[2018-12-26] MEDS: cefTRIAXone IV Push 1 GM VIAL. IVP SCH (18:18)
[2018-12-26] MEDS: HYDROcodone/APAP 7.5/325MG 1 TAB TABLET PO PRN (18:18)
[2018-12-26 19:00] VITALS: BP 100/67
[2018-12-26 23:00] VITALS: BP 143/71
[2018-12-27 03:00] VITALS: BP 120/72
[2018-12-27 05:05] LABS: BASO # 0.1 x10^3/uL (0.0-0.2); BASO % 1 % (0-3); EOS # 0.4 x10^3/uL (0.0-0.7); EOS % 5 % (0-3); HEMATOCRIT 23.8 % (39.0-53.0); HEMOGLOBIN 7.7 g/dL (13.0-17.5); LYMPH # 1.9 x10^3/uL (1.0-4.8); LYMPH % 24 % (24-48); MEAN CORPUSCULAR HEMOGLOBIN 30 pg (25-35); MEAN CORPUSCULAR HGB CONC 33 g/dL (31-37); MEAN CORPUSCULAR VOLUME 92 fL (79-100); MONO # 0.6 x10^3/uL (0.0-1.1); MONO % 7 % (0-9); NEUT % 62 % (31-73); PLATELET COUNT 348 x10^3/uL (140-400); RED BLOOD COUNT 2.59 x10^6/uL (4.30-5.70); RED CELL DISTRIBUTION WIDTH 14.2 % (11.5-14.5)
[2018-12-27 05:21] LABS: CALCIUM 8.4 mg/dL (8.5-10.1); CREATININE 0.8 mg/dL (0.7-1.3); GFR 118.1
[2018-12-27 07:00] VITALS: BP 128/78
[2018-12-27] MEDS: MULTIVITAMIN with MINERAL TABLET. PO SCH (10:05)
[2018-12-27] MEDS: FERROUS SULFATE 325 MG TABLET. PO SCH ×2 (10:06→17:20)
[2018-12-27] MEDS: SUCRALFATE 1 GM TABLET. PO SCH ×4 (10:06→22:17)
[2018-12-27] MEDS: SERTRALINE 50 MG TABLET. PO SCH (10:06)
[2018-12-27] MEDS: PANTOPRAZOLE 40 MG TABLET.DR. PO SCH (10:06)
[2018-12-27] MEDS: BICALUTAMIDE 50 MG TABLET PO SCH (10:13)
[2018-12-27 11:00] VITALS: BP 118/59
[2018-12-27 15:00] VITALS: BP 106/61
[2018-12-27] MEDS: HYDROcodone/APAP 7.5/325MG 1 TAB TABLET PO PRN ×2 (17:20→22:17)
[2018-12-27] MEDS: cefTRIAXone IV Push 1 GM VIAL. IVP SCH (17:22)
[2018-12-27 19:20] VITALS: BP 113/65
--- NOTE | 2018-12-27 20:17 | PN ---
DATE: 12/27/2018 LOCATION: Room 436. SUBJECTIVE: The patient is awake and alert, appears quite depressed over the overall situation, is still talking about going home, although makes no sense, whatsoever when the patient does not have a currently functional leg brace. He is using a Calero catheter and has a nonfunctional wheelchair, which he was sitting in for 4 days prior to this admission, unable get up and down to get food and drink and had causation of a sacral decubitus ulcer from the same. OBJECTIVE: VITAL SIGNS: Stable. He is afebrile. GENERAL: He is awake and alert. CHEST: Clear. HEART: Regular. ABDOMEN: Benign. LABORATORY DATA: White count has decreased to normal at 8000 and hemoglobin has decreased further at 7.7. BUN and creatinine have decreased back into the normal range at 11 and 0.8. He has greater than 100,000 Gram-negative rods growing out of his urine without ID to date, is on IV Rocephin for the same and probably is working with the white count returning to normal. IMPRESSION: 1. Encephalopathy, improved. 2. Depression. 3. Leukocytosis, improved. 4. Gram-negative urinary tract infection. 5. Stage 2-3 sacral decubitus ulcer. 6. Status post cerebrovascular accident with left hemiparesis, inability to do self-care currently due to weakness and due to infection as well as not having a functional wheelchair and leg brace. 7. Recent left greater trochanteric fracture with pain further inhibiting his ability to do self-care. 8. Protein calorie malnutrition. 9. Prostate cancer. PLAN: Continue present care. Await final ID. The patient is absolutely going to have to do rehab and absolutely is going to have to have a leg brace and wheelchair prior to any consideration of return to home. I am concerned about his support group at home. I do not believe there would be anybody with him there for sure and if there was, he felt like would run them off anyway. UCHE HINSON MD DR: TOMASA/gaurav JOB#: [id number] / [id number]
[2018-12-27] MEDS ORDERED: LACTOBACILLUS RHAMNOSUS GG 1 CAPSULE. PO SCH (21:00)
[2018-12-27 23:35] VITALS: BP 106/58
--- NOTE | 2018-12-28 01:49 | CONS ---
DATE OF CONSULTATION: 12/27/2018 REASON FOR CONSULTATION: Evaluate mycotic ingrown nails, especially hallux nails. REVIEW OF RECORD: This is a 63-year-old black male, has had problems, living on his own. He has had episodes of GI bleed. He is wheelchair dependent. He has had a CVA with left-sided hemiparesis. He had a left foot and leg brace, history of depression, history of carcinoma of the prostate, gastric ulcers with GI bleeding. 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 He also has a new stage 2 and 3 sacral decubitus ulcers along with leukocytosis on admission. ALLERGIES: None. MEDICATIONS: Reviewed. SOCIAL HISTORY: Smoker, nondrinker, does not use drugs. Lives at home. PHYSICAL EXAMINATION: DERMATOLOGIC: The patient has elongated mycotic nails, the lesser digits 2 through 5 are moderate in severity with no signs of break in the skin. The hallux nails are a little different story. They are severe, gryphotic, dystrophic with multiple layers of mycosis involvement and subungual debris. Nail bed is intact. Upon debridement, no hemorrhage is incurred during the treatment. VASCULAR: Pedal pulses are diminished to absent. NEUROLOGIC: The patient has diminished sensorium and muscle strength of the left leg consistent with CVA and hemiparesis. MUSCULOSKELETAL: No significant bunions or hammertoe deformities that were contributory to his problem today. ASSESSMENT: 1. Evidence of peripheral vascular disease, non-limb threatening. Clinical evidence of painful onychomycosis, onychocryptosis, onycholysis of all nails, hallux nails have been the most problematic. 2. Multiple medical problems including hemiparesis of left lower extremity. PLAN: Debridement of mycotic nails was performed. No hemorrhage incurred. The patient will hopefully may be followed up in 3-4 months knowing that the services are available to him on an outpatient basis. Thank you very much, Dr. Tabor, for the opportunity to take care of your patient. NAWAF IRBY DPM DR: VANNESA/gaurav JOB#: [id number] / [id number]
[2018-12-28 03:13] VITALS: BP 111/58
[2018-12-28] MEDS: PANTOPRAZOLE 40 MG TABLET.DR. PO SCH (06:19)
[2018-12-28 07:00] VITALS: BP 125/61
[2018-12-28 11:00] VITALS: BP 109/61
[2018-12-28] MEDS: SUCRALFATE 1 GM TABLET. PO SCH ×4 (11:30→21:19)
[2018-12-28] MEDS: FERROUS SULFATE 325 MG TABLET. PO SCH ×2 (12:10→18:09)
[2018-12-28] MEDS: SERTRALINE 50 MG TABLET. PO SCH (12:11)
[2018-12-28] MEDS: MULTIVITAMIN with MINERAL TABLET. PO SCH (12:11)
[2018-12-28] MEDS: BICALUTAMIDE 50 MG TABLET PO SCH (12:15)
[2018-12-28 15:00] VITALS: BP 106/60
[2018-12-28] MEDS: CIPROFLOXACIN HCL 250 MG TABLET. PO SCH (18:10)
[2018-12-28 19:20] VITALS: BP 106/59
--- NOTE | 2018-12-28 20:00 | PN ---
DATE: 12/28/2018 LOCATION: He is in room 436. SUBJECTIVE: The patient is awake, alert, voices no major complaints this morning. OBJECTIVE: VITAL SIGNS: Stable. He is afebrile. CHEST: Reveals somewhat decreased breath sounds, but clear. HEART: Regular. ABDOMEN: Benign. NEUROLOGIC: Left hemiparesis, same. BMP has returned normal as of yesterday with all acute renal failure resolving. Urine culture is growing out Pseudomonas without sensitivities available at the time of seeing him this morning. He remains on IV Rocephin. He still does not have any wheelchair or leg brace per nursing and felt that the brace placement is needed to be done as an outpatient; however, he cannot leave the hospital without the brace. We are going to have to figure something out at the beginning of the week and help to work this out. Sacral area continues to be stable per nursing. IMPRESSION: 1. Encephalopathy, improved. 2. Leukocytosis, improved. 3. Pseudomonal urinary tract infections. 4. Stage 2-3 sacral decubitus ulcer, new. 5. Status post cerebrovascular accident with left hemiparesis, inability to do self-care with weakness due to the infection as well as not having a functional wheelchair or leg brace. 6. Recent left greater trochanteric fracture with pain inhibiting ability to do self-care further. 7. Protein calorie malnutrition. 8. Prostate cancer. PLAN: Continue present care, antibiotics will be adjusted after sensitivities, will need rehab on discharge and as of this morning, he is understanding. He is going to have to have a leg brace as well as a wheelchair prior to doing any kind of significant rehabilitation. UCHE HINSON MD DR: TOMASA/gaurav JOB#: [id number] / [id number]
[2018-12-28] MEDS: HYDROcodone/APAP 7.5/325MG 1 TAB TABLET PO PRN (21:19)
[2018-12-28 23:51] VITALS: BP 110/62
[2018-12-29] MEDS: CIPROFLOXACIN HCL 250 MG TABLET. PO SCH ×3 (00:23→21:08)
[2018-12-29 03:06] VITALS: BP 105/68
[2018-12-29] MEDS: PANTOPRAZOLE 40 MG TABLET.DR. PO SCH (06:44)
[2018-12-29] MEDS: SUCRALFATE 1 GM TABLET. PO SCH ×4 (06:44→21:08)
[2018-12-29 07:00] VITALS: BP 114/70
--- NOTE | 2018-12-29 08:22 | PN ---
DATE: 12/29/2018 LOCATION: Room 436. SUBJECTIVE: The patient is awake, alert, sitting in bed, getting ready to eat breakfast. Denies any significant complaints other than the fact he does not have a leg brace. He had no wheelchair. OBJECTIVE: VITAL SIGNS: Stable. He is afebrile. GENERAL: He is again awake and alert. CHEST: Clear. HEART: Regular. ABDOMEN: Benign. NEUROLOGICAL: Stable with the left hemiparesis. Discussed with nursing getting a wheelchair and leg brace today in preparation of discharge tomorrow to rehab of some sort. This morning, he is agreeable. I will recheck labs with the hemoglobin drifting down today prior to anticipated discharge tomorrow. Urine culture now shows Pseudomonas and the patient has been transferred to [facility].o. He does have ongoing catheter because of the decubitus ulcer. IMPRESSION: 1. Encephalopathy, resolved. 2. Leukocytosis, improved. 3. Pseudomonal urinary tract infection. 4. Stage 2 to 3 sacral decubitus ulcer, new. 5. Status post cerebrovascular accident with left hemiparesis and inability to do self-care with weakness due to the infection as well as not having a functional leg brace or wheelchair. 5. Recent left greater trochanteric fracture with pain there inhibiting ability to do self-care further. 6. Protein-calorie malnutrition. 7. Prostate cancer. PLAN: Continue present antibiotics. Leg brace and wheelchair are priorities for today for plan on possible discharge tomorrow. Once again, we will recheck CBC today to make sure that there has not been a further decrease in hemoglobin with the patient's recent hospitalization for a gastrointestinal bleed. UCHE HINSON MD DR: TOMASA/gaurav JOB#: [id number] / [id number]
[2018-12-29] MEDS: SERTRALINE 50 MG TABLET. PO SCH (08:43)
[2018-12-29] MEDS: MULTIVITAMIN with MINERAL TABLET. PO SCH (08:44)
[2018-12-29] MEDS: FERROUS SULFATE 325 MG TABLET. PO SCH ×2 (08:44→16:55)
[2018-12-29] MEDS: BICALUTAMIDE 50 MG TABLET PO SCH (08:51)
--- NOTE | 2018-12-29 10:48 | NUR ---
SW following. Discussed with RN. SUDHEER met with pt to discuss SNU/Rehab again. Pt more willing to talk this time and questioned where he could go. Pt would like to stay in this area, and would like referral sent to [facility]. SW faxed referral to [facility]. RN advised Dr. Tabor is wanting oil changer to fit for a brace and possibility of new wheelchair. SUDHEER will continue to follow.
[2018-12-29 10:50] LABS: BASO # 0.1 x10^3/uL (0.0-0.2); BASO % 1 % (0-3); EOS # 0.3 x10^3/uL (0.0-0.7); EOS % 3 % (0-3); HEMATOCRIT 27.1 % (39.0-53.0); HEMOGLOBIN 8.7 g/dL (13.0-17.5); LYMPH # 1.7 x10^3/uL (1.0-4.8); LYMPH % 20 % (24-48); MEAN CORPUSCULAR HEMOGLOBIN 30 pg (25-35); MEAN CORPUSCULAR HGB CONC 32 g/dL (31-37); MEAN CORPUSCULAR VOLUME 92 fL (79-100); MONO # 0.7 x10^3/uL (0.0-1.1); MONO % 9 % (0-9); NEUT # 5.6 x10^3uL (1.8-7.7); NEUT % 67 % (31-73); PLATELET COUNT 401 x10^3/uL (140-400); RED BLOOD COUNT 2.95 x10^6/uL (4.30-5.70); RED CELL DISTRIBUTION WIDTH 14.5 % (11.5-14.5); WHITE BLOOD COUNT 8.4 x10^3/uL (4.0-11.0)
[2018-12-29 11:00] VITALS: BP 112/70
[2018-12-29 15:00] VITALS: BP 111/61
--- NOTE | 2018-12-29 16:03 | NUR ---
SUDHEER following. Per RN, Esther cannot deliver pt's brace to anywhere but [facility]. SUDHEER contacted pt's sister, Lyla ([phone]) to discuss pt's need, and Dr. Tabor's request for a new wheelchair. Lyla reported a friend had gifted pt's current wheelchair to him, family is hoping pt will qualify for an electric wheelchair. Family does not have a preference as to a provider for the wheelchair. SUDHEER contacted [facility] ([phone]) they have electric wheelchairs, and do accept Medicare [employer]. There will need to be a face to face examination with pt, specifically for the power chair, stating why pt needs the power chair and why he CANNOT use a regular wheelchair/ walker/ cane. There will also need to be a one time PT/OT for the power chair evaluating for the same things. Medicare looks for whether the pt needs the power chair for INSIDE the home for activities of daily living. Needing the wheelchair for getting around outside will not qualify pt. RN notified. SUDHEER will continue to follow.
[2018-12-29] MEDS: HYDROcodone/APAP 7.5/325MG 1 TAB TABLET PO PRN ×2 (16:55→21:09)
[2018-12-29 19:00] VITALS: BP 116/68
[2018-12-29 23:00] VITALS: BP 107/64
[2018-12-30 03:00] VITALS: BP 102/55
[2018-12-30] MEDS: SUCRALFATE 1 GM TABLET. PO SCH ×2 (06:38→12:25)
[2018-12-30] MEDS: PANTOPRAZOLE 40 MG TABLET.DR. PO SCH (06:38)
[2018-12-30] MEDS: HYDROcodone/APAP 7.5/325MG 1 TAB TABLET PO PRN (06:39)
[2018-12-30 07:00] VITALS: BP 100/68
[2018-12-30] MEDS ORDERED: CIPR250T30 PO (08:07)
--- NOTE | 2018-12-30 08:09 | SNU/HH DC ---
DISCHARGE ORDERS DISCHARGE INFORMATION: DISCHARGE DATE: Dec 30, 2018 FINAL DIAGNOSIS Problems Medical Problems: (1) Dehydration, severe Status: Acute CONDITION ON DISCHARGE: Stable CODE STATUS: Code Status: Full LONG TERM: SNF STAY <30 DAYS: Yes HOSPICE: HOSPICE: No HOSPICE EVAL & TREAT: No LTAC: ADMIT TO LTAC: No POST DISCHARGE ORDERS: ACTIVITY ORDERS: Activity as tolerated WEIGHT BEARING STATUS: No restrictions DIET AFTER DISCHARGE: Regular WOUND/INCISION CARE: Other, see below (continue present wound care on decubitus as outlined by wound care) CHECKS AFTER DISCHARGE: CHECKS AFTER DISCHARGE: Check blood press - daily TREATMENT/EQUIPMENT ORDERS: ADAPTIVE EQUIPMENT NEEDED: None Physical Therapy For: Evalulation/Treatment Occupational Therapy For: Evaluation/Treatment DISCHARGE MEDICATIONS: Home Meds Active Scripts Ciprofloxacin Hcl (CIPRO) 250 Mg Tablet, 500 MG PO BID for uti for 10 Days, #20 TAB Prov:UCHE HINSON MD 12/30/18 Cyclobenzaprine Hcl (CYCLOBENZAPRINE HCL) 10 Mg Tablet, 1 TAB PO TID, #30 TAB Prov:ORION ANGELES APPLIANCE ASSEMBLER 07/12/18 Reported Medications Sucralfate (CARAFATE) 1 Gm/10 Ml Oral.susp, 1 GM PO QIDACHS, MISC 12/18/17 Pantoprazole Sodium (PROTONIX) 20 Mg Tablet.dr, 40 MG PO DAILY, TAB 12/18/17 Hydrocodone Bit/Acetaminophen (HYDROCODONE-APAP 7.5-325 ) 1 Each Tablet, 7.5 MG PO PRN Q4-6HRS PRN for PAIN, #120 06/04/16 Ferrous Sulfate (FERROUS SULFATE) 325 Mg Tablet, 325 MG PO BIDWMEALS, #60 06/04/16 Bicalutamide (CASODEX) 50 Mg Tablet, 1 TAB PO DAILY, #30 TAB 11 Refills 08/02/15 Sertraline Hcl (ZOLOFT) 50 Mg Tablet, 1 TAB PO DAILY, #30 TAB 2 Refills 08/02/15 UCHE HINSON MD Dec 30, 2018 08:09
--- NOTE | 2018-12-30 08:14 | PDOC ---
GENERAL General: see discharge summary. VITAL SIGNS Vital Signs: Vital Signs Date Time Temp Pulse Resp B/P (MAP) Pulse Ox O2 Delivery O2 Flow Rate FiO2 12/30/18 06:39 16 Room Air 12/30/18 03:00 98.1 75 102/55 (71) 95 98.1 I & O I & O Intake and Output 12/30/18 06:59 Output Total 1700 ml Balance -1700 ml Output Urine Total 1700 ml ALLERGIES Allergies: Allergies Coded Allergies Type Severity Reaction Last Updated Verified No Known Drug Allergies 12/16/18 No MEDS Medications: Current Medications Medications (Trade) Dose Ordered Sig/Popeye Start Time Stop Time Status Last Admin Dose Admin Acetaminophen (Tylenol) 650 mg PRN Q4HRS PRN 12/24/18 15:15 12/25/18 15:14 DC Acetaminophen/ Hydrocodone Bitart (Lortab 7.5/325) 1 tab PRN Q4HRS PRN 12/25/18 17:30 12/30/18 06:39 1 TAB Bicalutamide (Casodex) 50 mg DAILY 12/25/18 17:30 12/29/18 08:51 50 MG Ceftriaxone Sodium (Rocephin) 1 gm Q24H 12/25/18 17:30 12/28/18 15:42 DC 12/27/18 17:22 1 GM Ciprofloxacin (Cipro) 500 mg BID 12/28/18 17:00 01/10/19 21:01 12/29/18 21:08 500 MG Fentanyl Citrate (Fentanyl 2ml Vial) 50 mcg PRN Q1HR PRN 12/24/18 15:15 12/25/18 15:14 DC 12/24/18 20:25 50 MCG Ferrous Sulfate (Feosol) 325 mg BIDWMEALS 12/25/18 17:00 12/29/18 16:55 325 MG Lactobacillus Rhamnosus (Culturelle) 1 cap BID 12/27/18 21:00 12/27/18 21:00 DC Multivitamins (Thera M Plus) 1 tab DAILY 12/26/18 09:30 12/29/18 08:44 1 TAB Ondansetron HCl (Zofran) 4 mg PRN Q6HRS PRN 12/26/18 11:00 12/26/18 11:23 4 MG Pantoprazole Sodium (Protonix) 40 mg DAILYAC 12/25/18 17:00 12/30/18 06:38 40 MG Sertraline HCl (Zoloft) 50 mg DAILY 12/25/18 17:00 12/29/18 08:43 50 MG Sodium Chloride 1,000 ml @ 80 mls/hr [id number] 12/24/18 15:11 12/25/18 15:10 DC 12/25/18 06:51 80 MLS/HR Sucralfate (Carafate) 1 gm QIDACHS 12/25/18 21:00 12/30/18 06:38 1 GM LAB Lab: Laboratory Tests Test 12/29/18 10:12 White Blood Count 8.4 x10^3/uL (4.0-11.0) Red Blood Count 2.95 x10^6/uL (4.30-5.70) Hemoglobin 8.7 g/dL (13.0-17.5) Hematocrit 27.1 % (39.0-53.0) Mean Corpuscular Volume 92 fL (79-100) Mean Corpuscular Hemoglobin 30 pg (25-35) Mean Corpuscular Hemoglobin Concent 32 g/dL (31-37) Red Cell Distribution Width 14.5 % (11.5-14.5) Platelet Count 401 x10^3/uL (140-400) Neutrophils (%) (Auto) 67 % (31-73) Lymphocytes (%) (Auto) 20 % (24-48) Monocytes (%) (Auto) 9 % (0-9) Eosinophils (%) (Auto) 3 % (0-3) Basophils (%) (Auto) 1 % (0-3) Neutrophils # (Auto) 5.6 x10^3uL (1.8-7.7) Lymphocytes # (Auto) 1.7 x10^3/uL (1.0-4.8) Monocytes # (Auto) 0.7 x10^3/uL (0.0-1.1) Eosinophils # (Auto) 0.3 x10^3/uL (0.0-0.7) Basophils # (Auto) 0.1 x10^3/uL (0.0-0.2) UCHE HINSON MD Dec 30, 2018 08:14
--- NOTE | 2018-12-30 09:16 | DS ---
DATE OF DISCHARGE: 12/30/2018 PRIMARY DIAGNOSIS: Encephalopathy. ADDITIONAL DIAGNOSES: Pseudomonal urinary tract infection, dehydration, acute kidney injury, resolving during stay, anemia following recent GI bleed, weakness, left greater trochanteric fracture inhibiting ambulation, prostate cancer, leukocytosis resolving during stay. New stage 2-3 sacral decubitus ulcer. CHIEF COMPLAINT AND HISTORY OF PRESENT ILLNESS: This 63-year-old black male is well known to me from followup in the office. The patient has been recently dismissed from the hospital after a GI bleed. He was recommended to go to inpatient rehab, but refused at that point in time. The patient has been home alone. The family has been calling me over the last 3-4 days, trying to intervene to get him to go back to the hospital as the patient has not been able to get out of his wheelchair, which has led to him also not being eating or drinking. He is unable to prepare food, has become encephalopathic, is belligerent. They finally convinced him to go to the Emergency Room on the day of admission where he was found to have some acute kidney injury, some confusion. He had a stage I sacral decubitus, turning into a 2-3 over the 5 days at home, wheelchair was broken and nonfunctional. He is status post CVA with left hemiparesis, has a leg brace that is nonfunctional and needs to be replaced and the patient was admitted. SUMMARY OF STAY: The patient was admitted, hydrated. Kidney function returned to normal. He was found to have a pseudomonal urinary tract infection eventually transferring to [facility] as treatment. His leukocytosis resolved. His acute kidney injury resolved, anemia was relatively stable through the stay with the hemoglobin at discharge of 8.7. Esther was unable to get him a leg brace because he was in the hospital, which often will have to be done after discharge and we were unable to arrange a new wheelchair for him during the stay, which also will have to be arranged at [facility], which he will need both for any if he has got sort of chance of discharge to home. I discussed with him a power chair, which his sister thinks he should he get and he feels like this would make him lazy and he would do fine with a kind of a chair that he has had, which was [id number] from someone else's. He has never actually gotten one through insurance. It was felt that he could be dismissed on the day of discharge and this was accomplished. DISPOSITION: The patient is discharged to SNU. Please see orders regarding diet, medication, activity, etc. We will continue to follow him there. UCHE HINSON MD DR: TOMASA/gaurav JOB#: [id number] / [id number]
[2018-12-30] MEDS: SERTRALINE 50 MG TABLET. PO SCH (09:22)
[2018-12-30] MEDS: MULTIVITAMIN with MINERAL TABLET. PO SCH (09:22)
[2018-12-30] MEDS: FERROUS SULFATE 325 MG TABLET. PO SCH (09:22)
[2018-12-30] MEDS: CIPROFLOXACIN HCL 250 MG TABLET. PO SCH (09:22)
[2018-12-30] MEDS: BICALUTAMIDE 50 MG TABLET PO SCH (09:25)
[2018-12-30 11:00] VITALS: BP 90/53
--- NOTE | 2018-12-30 13:55 | NUR ---
SW following. Pt will transport to [facility] around 1415 today. Pt choice and rights letters signed and placed on chart. Pt aware he won't be getting the brace or wheelchair before going to [facility]. RN notified.
--- NOTE | 2018-12-30 14:56 | NUR ---
Pt was discharged to [facility]. Pt was transported via wheelchair by transportation. Pt was given packet containing prescription and instructions. Pt states he had a cane. Unable to locate in room. Pt report was given to Leonel at [facility].
== END 2018-12-30 14:59 | DRG 871 ==
LOC: ER 11:10 → 4 NORTH 15:05
PROVIDERS: ADMIT Family Medicine; ATTEND Family Medicine
PROC: 0HBRXZZ Excision of Toe Nail, External Approach (ICD-10-PCS; principal; 2018-12-24)
PROC: 0HBRXZZ Excision of Toe Nail, External Approach (ICD-10-PCS; 2018-12-24)
PROC: 0HBRXZZ Excision of Toe Nail, External Approach (ICD-10-PCS; 2018-12-24)
PROC: 0HBRXZZ Excision of Toe Nail, External Approach (ICD-10-PCS; 2018-12-24)
DX: A41.9 Sepsis, unspecified organism (principal); L89.153 Pressure ulcer of sacral region, stage 3; G93.40 Encephalopathy, unspecified; N39.0 Urinary tract infection, site not specified; E46 Unspecified protein-calorie malnutrition; I69.354 Hemiplegia and hemiparesis following cerebral infarction affecting left non-dominant side; Z68.1 Body mass index [BMI] 19.9 or less, adult; N17.9 Acute kidney failure, unspecified; E86.0 Dehydration; B35.1 Tinea unguium; B96.5 Pseudomonas (aeruginosa) (mallei) (pseudomallei) as the cause of diseases classified elsewhere; E87.6 Hypokalemia; B96.89 Other specified bacterial agents as the cause of diseases classified elsewhere; C61 Malignant neoplasm of prostate; D64.9 Anemia, unspecified; E83.51 Hypocalcemia; F17.200 Nicotine dependence, unspecified, uncomplicated; F32.9 Major depressive disorder, single episode, unspecified; I73.9 Peripheral vascular disease, unspecified; L60.0 Ingrowing nail; L60.1 Onycholysis; R29.6 Repeated falls; Z85.46 Personal history of malignant neoplasm of prostate; Z87.11 Personal history of peptic ulcer disease; Z87.81 Personal history of (healed) traumatic fracture; Z99.3 Dependence on wheelchair
CPT/HCPCS: 36415; 70450; 73502; 80048; 80053; 81001; 83605; 84484; 85007; 85025; 87086; 87186; 90471; 90756; 93005; J0696; J2405; J3010; J7030; 97116; 97530; 97535; 99285-25; Q2035

== ENCOUNTER 2021-03-13 08:46 | Emergency (ER) | payer MEDICARE, OTHER ==
[~2021-03-13] VITALS: Ht 193 cm; Wt 89.5 kg
[~2021-03-13 08:46] MED LIST changes: +CIPR250T30 PO; +SIMV20TA18 PO; -SIMV20TA3 PO
[2021-03-13] MEDS ORDERED: oxyCODONE/APAP 5/325 1 TAB TABLET PO ONE (09:00)
--- NOTE | 2021-03-13 09:11 | RAD ---
EXAM: PELVIS 1 VIEW. HISTORY: Fall, pain. COMPARISON: 12/24/2018. FINDINGS: No fractures are identified. A left hip hemiarthroplasty is in expected alignment. The join t spaces and alignment of the right hip are maintained. Fiducial markers are suspected within the pro state. Dense stool in the rectum is likely contrast from a prior procedure. Atherosclerotic calcifica tions are noted. There are moderate degenerative changes of the lower lumbar spine. IMPRESSION: 1. Left hip hemiarthroplasty in expected alignment. No fracture. Electronically signed by: Erik Syed MD (03/13/2021 9:09 AM) [id number]
--- NOTE | 2021-03-13 09:29 | RAD ---
CT HEAD AND C-SPINE WO Date: 03/13/2021 9:04 AM Clinical Indication: fall, head injury on anticoagulent, pain Comparison: CT head 12/24/2018. Technique: 5 mm axial tomographic images were obtained of the head without contrast. These were view ed on brain and bone windows. Noncontrast CT of the cervical spine was performed. Sagittal and betts l reformats were performed and evaluated. One or more of the following dose reduction techniques were utilized: Automated exposure control (AEC), Adjustment of mA and/or kV according to patient size, Us e of iterative reconstruction technique such as ASiR, CT scan done according to ALARA and image gentl y/image wisely HEAD FINDINGS: Mild generalized cerebral and cerebellar volume loss. Mild nonspecific periventricular hypoattenuatio n, most commonly seen with chronic small vessel ischemic disease. Large area of right MCA territory encephalomalacia. Ex vacuo dilatation of the right lateral ventricl e. No intra- or extra-axial mass or fluid collection. No acute hemorrhage. The lockwood-white matter junctio n is normal. The basilar cisterns are patent. Opacification of the right frontal sinus and maxillary sinuses with mucoperiosteal reaction consisten t with chronic sinusitis. The visualized portions of the orbits and globes are normal. The mastoid a ir cells are clear. No aggressive osseous lesion or fracture. CERVICAL SPINE FINDINGS: The cervical spine is normally aligned. No acute fracture. No aggressive lytic or blastic osseous les ions. Mild multilevel degenerative disc space height loss. Multilevel mild spinal canal stenosis secondary to disc protrusions and marginal osteophytes. Multilevel mild neuroforaminal narrowing secondary to u ncovertebral arthrosis. Multilevel mild facet arthrosis. The thyroid gland is normal. No cervical lymphadenopathy. Bilateral carotid atherosclerosis. The visu alized aerodigestive tract is normal. The visualized portions of the lungs demonstrates centrilobular emphysema. IMPRESSION: 1. No acute intracranial process. 2. No acute cervical spine fracture. Electronically signed by: Knenedy Duran MD (03/13/2021 9:26 AM) [id number]
--- NOTE | 2021-03-13 09:48 | ED.ADGEN ---
Past Medical History Past Medical History: Cancer, CVA, High Cholesterol, Stroke Additional Past Medical Histor: Left hemiparalysis, prostate cancer w/radiation Past Surgical History: Hip Replacement Additional Past Surgical Histo: Prostate surgery Smoking Status: Current Every Day Smoker Additional Information: 6-7 daily Alcohol Use: None Drug Use: None General Adult EDM: Chief Complaint: MECHANICAL FALL HPI: HPI: Patient is a 66 year old male coming in for a fall. Patient states she was try to walk a few steps to his wheelchair and fell and struck his head on a wall. Denies any loss of consciousness. Has a area of swelling on his right forehead. Patient is also complaining of groin pain rating to his inner thighs after a fall from his wheelchair 1 week ago. Was not seen after the fall. Patient has a history of a CVA with left-sided weakness. Patient states he is anticoagulated since the stroke. States he was not on the floor for prolonged period time prior to EMS arrival. States the fall was mechanical and denies any presyncopal or syncopal symptoms. Review of Systems: Review of Systems: All other systems within normal limits except for as noted in the HPI Current Medications: Current Medications Medications (Trade) Dose Ordered Sig/Popeye Start Time Stop Time Status Last Admin Dose Admin Oxycodone/ Acetaminophen (Percocet 5/325) 1 tab 1X ONCE 03/13/21 09:00 03/13/21 09:01 DC 03/13/21 09:05 1 TAB Allergies: Allergies: Allergies Coded Allergies Type Severity Reaction Last Updated Verified No Known Drug Allergies 03/13/21 No Physical Exam: PE: Constitutional: Well developed, well nourished, no acute distress, non-toxic appearance. [] HENT: Normocephalic, small hematoma on right forehead., bilateral external ears normal, nose normal. [] Eyes: PERRLA, conjunctiva normal, no discharge. [] Neck: No rigidity, supple, no stridor. [] Cardiovascular: Regular rate and rhythm, brisk cap refill [] Lungs & Thorax: Non labored symmetric respirations, no tachypnea or respiratory distress [] Abdomen: Soft, nondistended. Skin: Warm, dry, no erythema, no rash. [] Back: Unremarkable Extremities: No deformities, range of motion grossly intact, no lower extremity edema [] Neurologic: Alert and oriented X 3, patient with baseline left-sided weakness. No facial droop. [] Psychologic: Affect normal, judgement normal, mood normal. [] Current Patient Data: Vital Signs: Vital Signs Date Time Temp Pulse Resp B/P (MAP) Pulse Ox O2 Delivery O2 Flow Rate FiO2 03/13/21 09:05 18 96 Room Air 03/13/21 08:54 98.1 91 150/77 (101) 98.1 EKG: EKG: [] Heart Score: C/O Chest Pain: No Risk Factors: Risk Factors: DM, Current or recent (<one month) smoker, HTN, HLP, family history of CAD, obesity. Risk Scores: Score 0 - 3: 2.5% MACE over next 6 weeks - Discharge Home Score 4 - 6: 20.3% MACE over next 6 weeks - Admit for Clinical Observation Score 7 - 10: 72.7% MACE over next 6 weeks - Early Invasive Strategies Radiology/Procedures: Radiology/Procedures: [facility] [address] [place] [address] IMAGING REPORT Signed PATIENT: RILEY NATION ACCOUNT: [id number] : 1955 LOCATION: ER AGE: 66 SEX: M EXAM STATUS: PRE ER ORD. PHYSICIAN: GENESIS LAL MD REASON: fall, head injury on anticoagulent PROCEDURE: CT HEAD AND CERVICAL SPINE WO CT HEAD AND C-SPINE WO Date: 03/13/2021 9:04 AM Clinical Indication: fall, head injury on anticoagulent, pain Comparison: CT head 12/24/2018. Technique: 5 mm axial tomographic images were obtained of the head without contrast. These were viewed on brain and bone windows. Noncontrast CT of the cervical spine was performed. Sagittal and coronal reformats were performed and evaluated. One or more of the following dose reduction techniques were utilized: Automated exposure control (AEC), Adjustment of mA and/or kV according to patient size, Use of iterative reconstruction technique such as ASiR, CT scan done according to ALARA and image gently/image wisely HEAD FINDINGS: Mild generalized cerebral and cerebellar volume loss. Mild nonspecific periventricular hypoattenuation, most commonly seen with chronic small vessel ischemic disease. Large area of right MCA territory encephalomalacia. Ex vacuo dilatation of the right lateral ventricle. No intra- or extra-axial mass or fluid collection. No acute hemorrhage. The lockwood-white matter junction is normal. The basilar cisterns are patent. Opacification of the right frontal sinus and maxillary sinuses with mucoperi osteal reaction consistent with chronic sinusitis. The visualized portions of the orbits and globes are normal. The mastoid air cells are clear. No aggressive osseous lesion or fracture. CERVICAL SPINE FINDINGS: The cervical spine is normally aligned. No acute fracture. No aggressive lytic or blastic osseous lesions. Mild multilevel degenerative disc space height loss. Multilevel mild spinal canal stenosis secondary to disc protrusions and marginal osteophytes. Multilevel mild neuroforaminal narrowing secondary to uncovertebral arthrosis. Multilevel mild facet arthrosis. The thyroid gland is normal. No cervical lymphadenopathy. Bilateral carotid atherosclerosis. The visualized aerodigestive tract is normal. The visualized portions of the lungs demonstrates centrilobular emphysema. IMPRESSION: 1. No acute intracranial process. 2. No acute cervical spine fracture. Electronically signed by: Uche Duran MD (03/13/2021 9:26 AM) [id number] DICTATED and SIGNED BY: UCHE DURAN MD DATE: 03/13/21 [id number] [][facility] [address] [place], [place] [id number] IMAGING REPORT Signed PATIENT: RILEY NATION ACCOUNT: [id number] : 1955 LOCATION: ER AGE: 66 SEX: M EXAM STATUS: PRE ER ORD. PHYSICIAN: GENESIS LAL MD REASON: fall, groin pain PROCEDURE: PELVIS EXAM: PELVIS 1 VIEW. HISTORY: Fall, pain. COMPARISON: 12/24/2018. FINDINGS: No fractures are identified. A left hip hemiarthroplasty is in expected alignment. The joint spaces and alignment of the right hip are maintained. Fiducial markers are suspected within the prostate. Dense stool in the rectum is likely contrast from a prior procedure. Atherosclerotic calcifications are noted. There are moderate degenerative changes of the lower lumbar spine. IMPRESSION: 1. Left hip hemiarthroplasty in expected alignment. No fracture. Electronically signed by: Erik Syed MD (03/13/2021 9:09 AM) [id number] DICTATED and SIGNED BY: GARRISON SYED MD DATE: 03/13/21 [id number] Course & Med Decision Making: Course & Med Decision Making Pertinent Labs and Imaging studies reviewed. (See chart for details) [] Dragon Disclaimer: Dragon Disclaimer: This electronic medical record was generated, in whole or in part, using a voice recognition dictation system. Departure Departure Impression: Primary Impression: Fall from standing Additional Impression: Forehead contusion Disposition: HOME / SELF CARE / HOMELESS Condition: STABLE Referrals: UCHE HINSON MD (PCP) Patient Instructions: Fall Prevention and Home Safety Problem Qualifiers GENESIS LAL MD Mar 13, 2021 09:47
[2021-03-13] MEDS ORDERED: HYDR-2759 PO (10:41)
[2021-03-13 11:46] VITALS: BP 162/83
== END 2021-03-13 12:16 | disposition home or self-care (01) ==
LOC: ER 08:46
DX: S00.83XA Contusion of other part of head, initial encounter (principal); R10.30 Lower abdominal pain, unspecified; E78.00 Pure hypercholesterolemia, unspecified; F17.200 Nicotine dependence, unspecified, uncomplicated; Z86.73 Personal history of transient ischemic attack (TIA), and cerebral infarction without residual deficits; W05.0XXA Fall from non-moving wheelchair, initial encounter; Y93.89 Activity, other specified; Y92.89 Other specified places as the place of occurrence of the external cause; Y99.8 Other external cause status
CPT/HCPCS: 70450; 72125; 72170; 99285

== ENCOUNTER 2021-06-01 18:08 | Emergency (ER) | payer MEDICARE ==
[~2021-06-01] VITALS: Ht 193 cm; Wt 95.0 kg
[~2021-06-01 18:08] MED LIST changes: +HYDR-2759 PO
--- NOTE | 2021-06-01 19:21 | PHYS DOC ---
Past Medical History Past Medical History: Cancer, CVA, High Cholesterol, Stroke Additional Past Medical Histor: Left hemiparalysis, prostate cancer w/radiation Past Surgical History: Hip Replacement Additional Past Surgical Histo: Prostate surgery Smoking Status: Current Every Day Smoker Alcohol Use: None Drug Use: None General Adult EDM: Chief Complaint: Twisted knee at physical therapy and felt a pop HPI: HPI: Says he had then fallen in March about 2 months ago, he says he is going to regular physical therapy, he says he was at physical therapy today and was doing exercises, he said that he went to do a standing/twisting motion and is felt a sudden pop in the left knee and then pain, he says that he had gone home, there was swelling and gotten worse over the daytime and now presents with more severe pain in the left knee that is worse with motion, standing is worse and relieved with rest, he denies any numbness weakness/tingling, no hip pain, no falls per se, no back pain, no loss of bowel or bladder control 66-year-old male says that he suffered a stroke in 2007 leaving him with left leg and arm weakness chronically but Review of Systems: Review of Systems: General: no fevers , no chills, no general weakness Eyes: no blurred vision, no diplopia Skin: no rashes Neck: no swelling, no neck stiffness, no neck pain Heme: no bleeding, no lymph node enlargement Ear/Nose/Throat: No sore throat, no runny nose, no hearing loss, no difficulty swallowing Cardiovascular: no Chest pain, no palpitations Respiratory: No dyspnea, no cough, no hemoptysis Gastrointestinal: No abdominal pain, no nausea, no vomiting, no diarrhea, no blood in stool Genitourinary: no dysuria, no hematuria, Musculoskeletal: no back pain, no leg pain, no arm pain, no arthralgia, positive for left knee pain and swelling Neurologic: no headaches, no dizziness, no focal numbness/tingling, no focal weakness Psych: no depression, no anxiety, no SI/HI *All review of systems are negative other than what is noted above Heart Score: C/O Chest Pain: No Risk Factors: Risk Factors: DM, Current or recent (<one month) smoker, HTN, HLP, family history of CAD, obesity. Risk Scores: Score 0 - 3: 2.5% MACE over next 6 weeks - Discharge Home Score 4 - 6: 20.3% MACE over next 6 weeks - Admit for Clinical Observation Score 7 - 10: 72.7% MACE over next 6 weeks - Early Invasive Strategies Current Medications: Current Medications Medications (Trade) Dose Ordered Sig/Popeye Start Time Stop Time Status Last Admin Dose Admin Acetaminophen (Tylenol) 1,000 mg 1X ONCE 06/01/21 19:30 06/01/21 19:31 06/01/21 19:13 1,000 MG Morphine Sulfate (Morphine Sulfate) 4 mg 1X ONCE 06/01/21 19:30 06/01/21 19:31 06/01/21 19:13 4 MG Allergies: Allergies: Allergies Coded Allergies Type Severity Reaction Last Updated Verified No Known Drug Allergies 03/13/21 No Physical Exam: PE: Gen-well appearing, no acute distress Head: Normocephalic/Atraumatic ENT: atraumatic, PERRLA, EOMI, oropharynx clear Neck: supple, full ROM/strength, no JVD, no nuchal rigidity Lungs: no distress, speaks in full sentences, Clear to auscultation bilaterally CV: reg rate, rhythm, no murmus/rubs/gallops, peripheral pulses equal in all extremities Abdomen: soft/nontender, no guarding/rebound tenderness, no rigidity, non distended, normoactive bowel sounds Musculoskeletal: There is some swelling and tenderness around the left suprapatellar region, effusion present, range of motion in the left knee is limited by pain but the DP/PT pulses bilateral lower extremities is 2+, patient has chronic leg weakness from a stroke, Back: full range of motion/strength Skin: intact, no rashes Lymph: no gross ALINA Neuro: alert and oriented x 4, CN 2-12 grossly intact, motor strength in the left upper and left lower extremities 4/5, history of prior stroke and hemiplegia, motor strength in the right arm and leg is 5/5, otherwise,, no focal sensory deficits, no focal ataxia, Psych: normal mood/affect Current Patient Data: Vital Signs: Vital Signs Date Time Temp Pulse Resp B/P (MAP) Pulse Ox O2 Delivery O2 Flow Rate FiO2 06/01/21 19:13 16 97 Room Air EKG: EKG: [] Radiology/Procedures: Radiology/Procedures: [] Course & Med Decision Making: Course & Med Decision Making Pertinent Labs and Imaging studies reviewed. (See chart for details) [] 66-year-old male presents to the emergency department planing of pain and swelling in the left knee after a twisting injury raising suspicion for possibl e meniscus versus ligament injury, he has no signs of any neurovascular or tendon injuries per se, differential also includes but not limited to myofascial strain, fracture, no signs clinically of compartment syndrome, unlikely DVT, as well score is -2, no signs of infection, plan is for plain film x-ray, pain control, will likely immobilize this knee and speak with orthopedics, he will require likely close outpatient orthopedic follow-up and possibly an MRI Update at 9:32 PM: The x-ray shows a large lipohemarthrosis and a tibial plateau fracture, I did discuss the case and reviewed the x-rays with our on-call orthopedic surgeon Dr. Oneal, he recommends making the patient completely nonweightbearing and placing in the immobilizer which I did, I believe he is stable for discharge for close outpatient orthopedic and primary care follow-up Patient was seen in the ED for a tibial plateau fracture, there is no apparent evidence of any emergency medical pathology at this time, patient was advised follow-up with their primary care provider /physician in the next 24-48 hours, with orthopedics in the next 48 hours with and I advised him to be completely nonweightbearing, I also put an order in for case management to assist him with some home health, and to return to the ED before then if any new or worsening / concerning symptoms had developed. All questions and concerns were addressed at time of disposition Dragon Disclaimer: Gerald Disclaimer: This electronic medical record was generated, in whole or in part, using a voice recognition dictation system. Departure Departure Impression: Primary Impression: Tibial plateau fracture, left Qualified Codes: S82.142A - Displaced bicondylar fracture of left tibia, initial encounter for closed fracture Additional Impression: Left knee injury Qualified Codes: S89.92XA - Unspecified injury of left lower leg, initial encounter Disposition: HOME / SELF CARE / HOMELESS Condition: IMPROVED Referrals: UCHE HINSON MD (PCP) 2 days SHREYA ONEAL DO Patient Instructions: Tibial Plateau Fracture, Undisplaced, Adult Additional Instructions: He needs to not put any weight on this when walking, he needs to wear the brace and use the crutches, I want him to follow-up with orthopedics in the next 48 hours and with his primary care doctor in the same timeframe. Please return to the emergency room before follow-up if any new or worsening/concerning symptoms develop. I also ordered a consultation with a caser in to assist with setting up possible home health services Scripts Hydrocodone/Acetaminophen (Hydrocodone-Acetamin 5-325 mg) 1 Each Tablet 1 EACH PO TID PRN for PAIN for 5 Days, #15 TAB Prov: ANGEL ROMERO MD 06/01/21 ANGEL ROMERO MD Jun 01, 2021 19:21
[2021-06-01] MEDS ORDERED: MORPHINE SULFATE 4 MG/ML INJ. IM ONE (19:30)
[2021-06-01] MEDS ORDERED: ACETAMINOPHEN 500 MG TABLET PO ONE (19:30)
--- NOTE | 2021-06-01 20:58 | RAD ---
3 view left knee HISTORY: Pain status post injury AP lateral oblique views There is a large lipohemarthrosis. There is subtle lucencies within the tibial plateau. There is no i nterruption of cortex. IMPRESSION: Large lipohemarthrosis secondary to a tibial plateau fracture. Electronically signed by: Yusef Bello III, MD (06/01/2021 8:56 PM) [facility]
[2021-06-01 21:15] VITALS: BP 139/84
[2021-06-01] MEDS ORDERED: HYDR-2759 PO (21:35)
[2021-06-01] MEDS ORDERED: MORPHINE SULFATE 4 MG/ML INJ. IVP ONE (22:00)
[2021-06-03] MEDS ORDERED: EZET1TAB35 PO (02:58)
[2021-06-03] MEDS ORDERED: CLOP75TA PO (02:58)
[2021-06-03] MEDS ORDERED: SUCR1TAB PO (02:58)
== END 2021-06-01 22:00 | disposition home or self-care (01) ==
LOC: ER 18:08
DX: S82.142A Displaced bicondylar fracture of left tibia, initial encounter for closed fracture (principal); E78.00 Pure hypercholesterolemia, unspecified; F17.200 Nicotine dependence, unspecified, uncomplicated; Z86.73 Personal history of transient ischemic attack (TIA), and cerebral infarction without residual deficits; X50.9XXA Other and unspecified overexertion or strenuous movements or postures, initial encounter; Y93.89 Activity, other specified; Y92.89 Other specified places as the place of occurrence of the external cause; Y99.8 Other external cause status
CPT/HCPCS: 99285; J2270; 73562; 96361; 96374

== ENCOUNTER → 2021-07-12 | Outpatient (CLI) | payer MEDICARE ==
[2021-06-15 15:00] VITALS: BP 112/73
[~2021-07-12] MED LIST changes: +CLOP75TA PO; +EZET1TAB35 PO; +SUCR1TAB PO
--- NOTE | 2021-07-12 15:39 | RAD ---
EXAM: Left ankle, 3 views. HISTORY: Pain. Swelling. COMPARISON: None. FINDINGS: 3 views of the left ankle are obtained. There is diffuse ankle soft tissue swelling. There is slight cortical irregularity involving the inferior medial malleolus which may be due to an osseou s ridge or minimally displaced fracture. There is no osteochondral lesion. There is degenerative subc hondral sclerosis and spurring involving the subtalar joint. There is also joint space narrowing with subchondral sclerosis and spurring involving the first tarsometatarsal joint. There is bone deminera lization. This limits evaluation of fine bony detail. IMPRESSION: 1. Slight deformity of the inferior medial malleolus, possibly due to an osseous ridge or nondisplace d fracture. Correlate for pain in this location. 2. Degenerative change involving the subtalar joint and first tarsal metatarsal joint. 3. Diffuse soft tissue swelling. 4. Bone demineralization. Electronically signed by: Anna Javier MD (07/12/2021 3:37 PM) [id number]
== END ==
PROVIDERS: ATTEND Family Medicine
DX: M25.472 Effusion, left ankle (principal); M25.572 Pain in left ankle and joints of left foot; M79.89 Other specified soft tissue disorders
CPT/HCPCS: 73610

== ENCOUNTER → 2021-07-25 | Outpatient (CLI) | payer MEDICARE ==
[2021-06-15 15:00] VITALS: BP 112/73
--- NOTE | 2021-07-25 14:25 | RAD ---
XR KNEE_LT 1-2 VIEWS 07/25/2021 Reason: Tibial plateau fx Comparison: Left knee radiograph 06/01/2021 Technique: AP and lateral radiographs of the knee Findings: There is diffuse osseous demineralization. The knee joint effusion has resolved. There is patchy luce ncy of the cortical margin at the trochanteric groove. Lucencies throughout the tibia are also noted. The prior lucency through the tibial plateau and space increased sclerosis. There is interval callus formation adjacent to the fibular head fracture. There are calcifications within the soft tissue whi ch are vascular. Impression: 1. Findings consistent with healing of previously demonstrated tibial plateau and fibular head fractu res. 2. Lucencies in the distal femur are of uncertain clinical etiology. Possibly disuse versus joint inf ection. Electronically signed by: Connor Case (07/25/2021 2:23 PM) [id number]
== END ==
PROVIDERS: ATTEND Orthopaedic Surgery Sports Medicine
DX: S82.142D Displaced bicondylar fracture of left tibia, subsequent encounter for closed fracture with routine healing (principal); S82.492D Other fracture of shaft of left fibula, subsequent encounter for closed fracture with routine healing; M81.8 Other osteoporosis without current pathological fracture; L84 Corns and callosities; X58.XXXD Exposure to other specified factors, subsequent encounter
CPT/HCPCS: 73560

== ENCOUNTER 2021-08-08 20:46 | Emergency (ER) | payer MEDICARE ==
[~2021-08-08] VITALS: Ht 193 cm; Wt 109.0 kg
[~2021-08-08 20:46] MED LIST changes: +CYCL10TA19 PO; -CYCL10TA2 PO
[2021-08-08 21:00] VITALS: BP 129/78
--- NOTE | 2021-08-08 22:21 | RAD ---
EXAMINATION: CT head, cervical spine, thoracic and lumbar without IV contrast INDICATION:66 years, Male, fall, pain. COMPARISON: CT brain and cervical spine dated 03/13/2021. CT chest dated 07/12/2018 TECHNIQUE: Spiral acquisition of contiguous images from the skull base to the vertex were obtained. C T of the cervical, thoracic and lumbar spine spine was obtained using contiguous spiral imaging from the skull base to the upper thoracic level. Sagittal and coronal 2D reformatted series were provided by the technologist. Soft tissue and bone window algorithms were reviewed. Exposure: One or more of the following individualized dose reduction techniques were utilized for thi s examination: 1. Automated exposure control 2. Adjustment of the mA and/or kV according to patient size 3. Use of iterative reconstruction technique. FINDINGS: CT HEAD: Mild brain parenchymal volume loss. Similar large examination in the right MCA territory with ex vacu o dilation of the right lateral ventricle. Neither mass, midline shift, intracranial hemorrhage, acut e/subacute ischemic changes, nor extraaxial fluid collections are seen. Opacification of the right fr ontal and bilateral maxillary sinuses with diffuse mucoperiosteal reaction consistent with chronic si nusitis. Bilateral mastoid air cells, and middle ears are clear. The orbital contents appear within n ormal limits. CERVICAL SPINE FINDINGS: The cervical spine is normally aligned. No acute fracture. No aggressive lytic or blastic osseous les ions. Multilevel degenerative disc space height loss. Multilevel spinal canal stenosis secondary to d isc protrusions and marginal osteophytes. Multilevel mild neuroforaminal narrowing secondary to uncov ertebral arthrosis. The thyroid gland is normal. No cervical lymphadenopathy. Bilateral carotid ather osclerosis. The visualized aerodigestive tract is normal. CT THORACOLUMBAR SPINE: Vertebral bodies are normal in alignment. Chronic mild compression deformity of T3 and T5 vertebral b odies, similar to prior exam. No acute fracture or subluxation. Multilevel degenerative changes with disc space narrowing and osteophytes, worst at L5-S1. Multilevel bilateral facet arthropathy. Mild pulmonary emphysema. Bibasilar subsegmental atelectasis. Elevation of the right hemidiaphragm. N ormal caliber thoracic aorta. Severe coronary artery atherosclerotic calcifications. No mediastinal l ymphadenopathy. There is a 1.0 cm hyperdense lesion in the left kidney with Hounsfield unit measures 80, most likely complex hemorrhagic/proteinaceous cyst. IMPRESSION: 1. No acute intracranial abnormality. 2. Chronic right frontal and bilateral maxillary sinusitis. 3. No acute fracture of the cervical, thoracic, or lumbar spine. 4. Chronic mild compression deformity of the T3 and T5 vertebral bodies. 5. A 1.0 cm hyperdense lesion in the left kidney, most likely complex hemorrhagic/proteinaceous cyst . Electronically signed by: August Mireles MD (08/08/2021 10:19 PM) [facility]
--- NOTE | 2021-08-08 22:22 | RAD ---
Exam: Left shoulder 3 views INDICATION: Trauma TECHNIQUE: Frontal view of the left shoulder with internal and external rotation and transscapular Y views Comparisons: None FINDINGS: Diffuse osteopenia. No acute or healed fractures. Soft tissues are unremarkable. Joint spaces are wel l-maintained. IMPRESSION: No acute osseous abnormality Electronically signed by: Kiara Hilliard MD (08/08/2021 10:19 PM) MAN
--- NOTE | 2021-08-08 22:25 | RAD ---
Exam: Left knee 3 views INDICATION: Trauma, fall TECHNIQUE: Frontal, lateral oblique views of the left knee. Comparisons: 07/25/2020 FINDINGS: Fracture deformity involving the tibial plateau laterally is again noted. There is a small suprapatel lar region. No acute displaced fractures identified. Diffuse osteopenia. IMPRESSION: 1. Chronic fracture deformity at the tibial plateau. 2. Small suprapatellar effusion. Electronically signed by: Kiara Hilliard MD (08/08/2021 10:22 PM) MAN
--- NOTE | 2021-08-08 22:30 | RAD ---
EXAMINATION: Chest radiograph. VIEWS: Single view COMPARISON: Same day 18 thoracic spine. Chest radiograph dated 12/12/2018. INDICATION:66 years, Male, fall. FINDINGS: Normal cardiomediastinal silhouette. Persistent elevation of the right hemidiaphragm. Similar bibasil ar scarring. No focal consolidation. No pleural effusion or pneumothorax. No acute osseous process. S imilar old multiple left rib fractures. IMPRESSION: No acute cardiopulmonary process. Electronically signed by: August Mireles MD (08/08/2021 10:27 PM) [facility]
[2021-08-08 22:34] LABS: BASO % 0 % (0-3); EOS # 0.1 x10^3/uL (0.0-0.7); EOS % 1 % (0-3); HEMATOCRIT 39.4 % (39.0-53.0); HEMOGLOBIN 12.8 g/dL (13.0-17.5); LYMPH # 1.6 x10^3/uL (1.0-4.8); LYMPH % 13 % (24-48); MEAN CORPUSCULAR HEMOGLOBIN 28 pg (25-35); MEAN CORPUSCULAR HGB CONC 32 g/dL (31-37); MEAN CORPUSCULAR VOLUME 85 fL (79-100); MONO # 0.7 x10^3/uL (0.0-1.1); MONO % 5 % (0-9); NEUT # 10.2 x10^3/uL (1.8-7.7); NEUT % 81 % (31-73); PLATELET COUNT 356 x10^3/uL (140-400); RED BLOOD COUNT 4.64 x10^6/uL (4.30-5.70); RED CELL DISTRIBUTION WIDTH 14.6 % (11.5-14.5); WHITE BLOOD COUNT 12.5 x10^3/uL (4.0-11.0)
[2021-08-08 22:39] LABS: BILIRUBIN,URINE NEGATIVE (NEG); CLARITY,URINE CLEAR; COLOR,URINE YELLOW; NITRITE,URINE NEGATIVE (NEG); PH,URINE 5.5 (<5.0-8.0); PROTEIN,URINE NEGATIVE (NEG-TRACE)
[2021-08-08 22:47] LABS: BACTERIA,URINE 0 /HPF (0-FEW); RBC,URINE 0 /HPF (0-2); WBC,URINE 0 /HPF (0-4)
[2021-08-08 23:22] LABS: CALCIUM 9.2 mg/dL (8.5-10.1); GFR 90.5
[2021-08-08 23:27] LABS: ALBUMIN 3.4 g/dL (3.4-5.0); ALBUMIN/GLOBULIN RATIO 0.7 (1.0-1.7); TOTAL BILIRUBIN 0.3 mg/dL (0.2-1.0); TOTAL PROTEIN 8.3 g/dL (6.4-8.2)
--- NOTE | 2021-08-09 00:09 | PHYS DOC ---
Past Medical History Past Medical History: Cancer, CVA, High Cholesterol, Stroke Additional Past Medical Histor: Left hemiparalysis, prostate cancer w/radiation Past Surgical History: Hip Replacement, Other Additional Past Surgical Histo: Prostate surgery Smoking Status: Current Every Day Smoker Alcohol Use: None Drug Use: None General Adult EDM: Chief Complaint: MECHANICAL FALL HPI: HPI: Patient is a 66 year old male patient with history of CVA and left-sided hemiparesis who presents to the ED today to be evaluated after [facility]. Patient is a poor historian. Unable to describe the circumstances on how he fell. He has had multiple falls in the last 2 weeks. He states he did not hit his head but has pain to the back of his neck, left shoulder, and left knee. Is also complaining of low back pain specifically on the left. I could not get good rating for this pain as well as description. Review of Systems: Review of Systems: Constitutional: Denies fever or chills. [] Eyes: Denies change in visual acuity. [] HENT: Denies nasal congestion or sore throat. [] Respiratory: Denies cough or shortness of breath. [] Cardiovascular: Denies chest pain or edema. [] GI: Denies abdominal pain, nausea, vomiting, bloody stools or diarrhea. [] : Denies dysuria. [] Musculoskeletal: Reports falling, low back pain, left knee pain and left shoulder pain. Also reports neck pain Integument: Denies rash. [] Neurologic: Denies headache, focal weakness or sensory changes. [] Psychiatric: Denies depression or anxiety. [] Heart Score: C/O Chest Pain: N/A Risk Factors: Risk Factors: DM, Current or recent (<one month) smoker, HTN, HLP, family history of CAD, obesity. Risk Scores: Score 0 - 3: 2.5% MACE over next 6 weeks - Discharge Home Score 4 - 6: 20.3% MACE over next 6 weeks - Admit for Clinical Observation Score 7 - 10: 72.7% MACE over next 6 weeks - Early Invasive Strategies Allergies: Allergies: Allergies Coded Allergies Type Severity Reaction Last Updated Verified No Known Drug Allergies 03/13/21 No Physical Exam: PE: Constitutional: Well developed, well nourished, no acute distress, non-toxic appearance. [] HENT: Normocephalic, atraumatic, bilateral external ears normal, oropharynx moist, no oral exudates, nose normal. [] Eyes: PERRLA, EOMI, conjunctiva normal, no discharge. [] Neck: Normal range of motion, no tenderness, supple, no stridor. [] Cardiovascular:Heart rate regular rhythm, no murmur [] Lungs & Thorax: Bilateral breath sounds clear to auscultation [] Abdomen: Bowel sounds normal, soft, no tenderness, no masses, no pulsatile masses. [] Skin: Warm, dry, no erythema, no rash. [] Back: No tenderness, no CVA tenderness. [] Extremities: Left-sided hemiparesis, left knee with no obvious deformity, no bruising, no tenderness on exam. +2 bilateral pedal pulses. Left shoulder with no obvious deformity. Range of motion is limited to the left upper and left lower extremity due to his previous history of CVA. Neurologic: Alert and oriented X 3, normal motor function, normal sensory function, no focal deficits noted. [] Psychologic: Affect normal, judgement normal, mood normal. [] Current Patient Data: Labs: Laboratory Tests Test 08/08/21 22:10 08/08/21 22:50 White Blood Count 12.5 x10^3/uL (4.0-11.0) H Red Blood Count 4.64 x10^6/uL (4.30-5.70) Hemoglobin 12.8 g/dL (13.0-17.5) L Hematocrit 39.4 % (39.0-53.0) Mean Corpuscular Volume 85 fL (79-100) Mean Corpuscular Hemoglobin 28 pg (25-35) Mean Corpuscular Hemoglobin Concent 32 g/dL (31-37) Red Cell Distribution Width 14.6 % (11.5-14.5) H Platelet Count 356 x10^3/uL (140-400) Neutrophils (%) (Auto) 81 % (31-73) H Lymphocytes (%) (Auto) 13 % (24-48) L Monocytes (%) (Auto) 5 % (0-9) Eosinophils (%) (Auto) 1 % (0-3) Basophils (%) (Auto) 0 % (0-3) Neutrophils # (Auto) 10.2 x10^3/uL (1.8-7.7) H Lymphocytes # (Auto) 1.6 x10^3/uL (1.0-4.8) Monocytes # (Auto) 0.7 x10^3/uL (0.0-1.1) Eosinophils # (Auto) 0.1 x10^3/uL (0.0-0.7) Basophils # (Auto) 0.0 x10^3/uL (0.0-0.2) Urine Color Yellow Urine Clarity Clear Urine pH 5.5 (<5.0-8.0) Urine Specific Darby 1.015 (1.000-1.030) Urine Protein Negative mg/dL (NEG-TRACE) Urine Glucose (UA) Negative mg/dL (NEG) Urine Ketones (Stick) Negative mg/dL (NEG) Urine Blood Negative (NEG) Urine Nitrite Negative (NEG) Urine Bilirubin Negative (NEG) Urine Urobilinogen Dipstick 1.0 mg/dL (0.2 mg/dL) Urine Leukocyte Esterase Negative (NEG) Urine RBC 0 /HPF (0-2) Urine WBC 0 /HPF (0-4) Urine Squamous Epithelial Cells Few /LPF Urine Bacteria 0 /HPF (0-FEW) Urine Mucus Slight /LPF Sodium Level 139 mmol/L (136-145) Potassium Level 5.0 mmol/L (3.5-5.1) Chloride Level 103 mmol/L (98-107) Carbon Dioxide Level 28 mmol/L (21-32) Anion Gap 8 (6-14) Blood Urea Nitrogen 18 mg/dL (8-26) Creatinine 1.0 mg/dL (0.7-1.3) Estimated GFR (Cockcroft-Gault) 90.5 BUN/Creatinine Ratio 18 (6-20) Glucose Level 95 mg/dL (70-99) Calcium Level 9.2 mg/dL (8.5-10.1) Total Bilirubin 0.3 mg/dL (0.2-1.0) Aspartate Amino Transferase (AST) 23 U/L (15-37) Alanine Aminotransferase (ALT) 26 U/L (16-63) Alkaline Phosphatase 96 U/L (46-116) Troponin I High Sensitivity < 4 ng/L (4-75) L AJ-Yag-A-Type Natriuretic Peptide 30 pg/mL (0-124) Total Protein 8.3 g/dL (6.4-8.2) H Albumin 3.4 g/dL (3.4-5.0) Albumin/Globulin Ratio 0.7 (1.0-1.7) L Laboratory Tests 08/08/21 22:10 Laboratory Tests 08/08/21 22:50 Vital Signs: Vital Signs Date Time Temp Pulse Resp B/P (MAP) Pulse Ox O2 Delivery O2 Flow Rate FiO2 08/08/21 21:00 98.3 94 18 129/78 (95) 95 Room Air 98.3 EKG: EKG: [] Radiology/Procedures: Radiology/Procedures: []PROCEDURE: CT THORACIC SPINE WO CONTRAST EXAMINATION: CT head, cervical spine, thoracic and lumbar without IV contrast INDICATION:66 years, Male, fall, pain. COMPARISON: CT brain and cervical spine dated 03/13/2021. CT chest dated 07/12/2018 TECHNIQUE: Spiral acquisition of contiguous images from the skull base to the vertex were obtained. CT of the cervical, thoracic and lumbar spine spine was obtained using contiguous spiral imaging from the skull base to the upper thoracic level. Sagittal and coronal 2D reformatted series were provided by the technologist. Soft tissue and bone window algorithms were reviewed. Exposure: One or more of the following individualized dose reduction techniques were utilized for this examination: 1. Automated exposure control 2. Adjustment of the mA and/or kV according to patient size 3. Use of iterative reconstruction technique. FINDINGS: CT HEAD: Mild brain parenchymal volume loss. Similar large examination in the right MCA territory with ex vacuo dilation of the right lateral ventricle. Neither mass, midline shift, intracranial hemorrhage, acute/subacute ischemic changes, nor extraaxial fluid collections are seen. Opacification of the right frontal and bilateral maxillary sinuses with diffuse mucoperiosteal reaction consistent with chronic sinusitis. Bilateral mastoid air cells, and middle ears are clear. The orbital contents appear within normal limits. CERVICAL SPINE FINDINGS: The cervical spine is normally aligned. No acute fracture. No aggressive lytic or blastic osseous lesions. Multilevel degenerative disc space height loss. Mul tilevel spinal canal stenosis secondary to disc protrusions and marginal osteophytes. Multilevel mild neuroforaminal narrowing secondary to uncovertebral arthrosis. The thyroid gland is normal. No cervical lymphadenopathy. Bilateral carotid atherosclerosis. The visualized aerodigestive tract is normal. CT THORACOLUMBAR SPINE: Vertebral bodies are normal in alignment. Chronic mild compression deformity of T3 and T5 vertebral bodies, similar to prior exam. No acute fracture or subluxation. Multilevel degenerative changes with disc space narrowing and osteophytes, worst at L5-S1. Multilevel bilateral facet arthropathy. Mild pulmonary emphysema. Bibasilar subsegmental atelectasis. Elevation of the right hemidiaphragm. Normal caliber thoracic aorta. Severe coronary artery atherosclerotic calcifications. No mediastinal lymphadenopathy. There is a 1.0 cm hyperdense lesion in the left kidney with Hounsfield unit measures 80, most likely complex hemorrhagic/proteinaceous cyst. IMPRESSION: 1. No acute intracranial abnormality. 2. Chronic right frontal and bilateral maxillary sinusitis. 3. No acute fracture of the cervical, thoracic, or lumbar spine. 4. Chronic mild compression deformity of the T3 and T5 vertebral bodies. 5. A 1.0 cm hyperdense lesion in the left kidney, most likely complex hemorrhagic/proteinaceous cyst. Electronically signed by: Alberto Mireles MD (08/08/2021 10:19 PM) KAR[place] DICTATED and SIGNED BY: ALBERTO MIRELES MD DATE: 08/08/21 [id number] 0 PROCEDURE: SHOULDER 2+V LEFT Exam: Left shoulder 3 views INDICATION: Trauma TECHNIQUE: Frontal view of the left shoulder with internal and external rotation and transscapular Y views Comparisons: None FINDINGS: Diffuse osteopenia. No acute or healed fractures. Soft tissues are unremarkable. Joint spaces are well-maintained. IMPRESSION: No acute osseous abnormality Electronically signed by: Kiara Sher MD (08/08/2021 10:19 PM) MAN DICTATED and SIGNED BY: KIARA SHER MD DATE: 08/08/[id number] 0 PROCEDURE: KNEE LEFT 3V Exam: Left knee 3 views INDICATION: Trauma, fall TECHNIQUE: Frontal, lateral oblique views of the left knee. Comparisons: 07/25/2020 FINDINGS: Fracture deformity involving the tibial plateau laterally is again noted. There is a small suprapatellar region. No acute displaced fractures identified. Diffuse osteopenia. IMPRESSION: 1. Chronic fracture deformity at the tibial plateau. 2. Small suprapatellar effusion. Electronically signed by: Kiara Sher MD (08/08/2021 10:22 PM) MAN DICTATED and SIGNED BY: KIARA SHER MD DATE: 08/08/21 [id number] Course & Med Decision Making: Course & Med Decision Making Pertinent Labs and Imaging studies reviewed. (See chart for details) This is a 66-year-old male patient presenting to the ED today to be evaluated for frequent falls. He has been seen in the ED multiple times for falling in the last couple months. He fell today, patient is complaining of posterior neck pain, left shoulder pain, left knee pain and low back pain. CT of the head, cervical spine, thoracic and lumbar spine were negative for any acute findings. Left shoulder x-ray and left knee x-rays are negative. Labs are negative for any acute findings. Discharge to home. Follow-up with PCP in 1 to 2 weeks Gerald Disclaimer: Gerald Disclaimer: This electronic medical record was generated, in whole or in part, using a voice recognition dictation system. Departure Departure Impression: Primary Impression: Fall from standing Qualified Codes: W19.XXXA - Unspecified fall, initial encounter Additional Impressions: Acute cervical sprain Qualified Codes: S13.9XXA - Sprain of joints and ligaments of unspecified parts of neck, initial encounter Lumbar contusion Qualified Codes: S30.0XXA - Contusion of lower back and pelvis, initial encounter Contusion of left shoulder Qualified Codes: S40.012A - Contusion of left shoulder, initial encounter Contusion of left knee Qualified Codes: S80.02XA - Contusion of left knee, initial encounter Disposition: 01 HOME / SELF CARE / HOMELESS Condition: STABLE Referrals: UCHE HINSON MD (PCP) Follow-up in 1 to 2 weeks Patient Instructions: Back Pain, Adult, Contusion, Knee Pain, [id number] Additional Instructions: You were evaluated in the emergency room after falling. Your CT of the head, cervical spine, thoracic and lumbar spine are negative for any acute findings. Your left knee x-ray is negative for any acute findings noted for knee joint effusion try to elevate the knee and wrap it with carlos bandage, your left shoulder x-rays are negative for any acute findings. Your lab work was negative for any acute findings. Please follow-up with your own primary care doctor in 1 to 2 weeks. ORION ANGELES APRN Aug 09, 2021 00:09
--- NOTE | 2021-08-09 05:45 | EKG ---
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
== END 2021-08-09 01:45 | disposition home or self-care (01) ==
LOC: ER 20:46
DX: S13.9XXA Sprain of joints and ligaments of unspecified parts of neck, initial encounter (principal); S30.0XXA Contusion of lower back and pelvis, initial encounter; S40.012A Contusion of left shoulder, initial encounter; S80.02XA Contusion of left knee, initial encounter; R51.9 Headache, unspecified; E78.00 Pure hypercholesterolemia, unspecified; F17.200 Nicotine dependence, unspecified, uncomplicated; Z86.73 Personal history of transient ischemic attack (TIA), and cerebral infarction without residual deficits; W18.39XA Other fall on same level, initial encounter; Y93.89 Activity, other specified; Y92.128 Other place in nursing home as the place of occurrence of the external cause; Y99.8 Other external cause status
CPT/HCPCS: 36415; 70450; 71045; 72125; 72128; 72131; 73030; 73562; 80053; 81001; 83880; 84484; 85025; 93005; 99285-25

== ENCOUNTER → 2021-08-23 | Outpatient (CLI) | payer MEDICARE ==
[2021-08-08 21:00] VITALS: BP 129/78
--- NOTE | 2021-08-24 15:46 | RAD ---
2 views left knee 08/23/2021 1:06 PM Indication: Reason: PAIN Comparison: Left knee radiographs August 08, 2021 Findings: Persistent deformity of the lateral plantar tibial plateau noted consistent with chronic fr acture. No new fractures seen. Diffuse bone demineralization noted. Severe as described vascular dise ase is seen. No dislocation is identified. A joint effusion is seen. IMPRESSION: Persistent deformity of the left tibial plateau secondary to chronic fracture.. If more d etailed characterization is desired CT imaging may be helpful CT DOSING PQRS STATEMENT: One or more of the following individualized dose reduction techniques were utilized for this examinat ion: 1. Automated exposure control 2. Adjustment of the mA and/or kV according to patient size 3. Use of iterative reconstruction technique Electronically signed by: Lloyd Sanchez MD (08/24/2021 3:43 PM) [id number]
== END ==
LOC: RAD 12:53
PROVIDERS: ATTEND Family Medicine
DX: M25.462 Effusion, left knee (principal); I99.9 Unspecified disorder of circulatory system
CPT/HCPCS: 73562